=== PATIENT | female | born 1940 | race Caucasian/White ===

== ENCOUNTER 2018-06-30 19:38 | Emergency (ER) | payer OTHER ==
--- OUTSIDE RECORDS SUMMARY | 2018-06-30 19:40 | XMS REPORT | Clinical Summary ---
:1940 Author Organization [facility] Address [address] [place] [id number] Care Team Providers Name Role Phone Asked, No Pcp Primary Care Provider Unavailable Allergies No Known Allergies Current Medications No known medications Active Problems Problem Noted Date Hyponatremia 12/31/2016 Alzheimer's dementia 12/31/2016 Accelerated hypertension 12/31/2016 Fibrositis 12/31/2016 Inflammation of sacroiliac joint (HCC) 12/31/2016 Blood loss anemia 12/31/2016 Social History Tobacco Use Types Packs/Day Years Used Date Never Smoker Alcohol Use Drinks/Week oz/Week Comments No Sex Assigned at Date Recorded Not on file Last Filed Vital Signs Not on file Plan of Treatment Health Maintenance Due Date Last Done Comments BREAST CANCER SCREENING 1992 COLON CANCER SCREENING 1992 SHINGRIX VACCINE (#1) 1992 ZOSTER VACCINE 2002 PNEUMOCOCCAL POLYSACCHARIDE VACCINE AGE 65 AND OVER 2007 PNEUMOCOCCAL-13 2007 INFLUENZA VACCINE 04/24/2018 Results Not on fileafter 06/29/2017 Insurance Payer Benefit Plan / Group Subscriber ID Type Phone Address MEDICARE MEDICARE PART A AND B xxxxxxxxxx Medicare [place], [place] STATE FARM INS [employer] INS xxxxxxxxxxxxx Commercial
[2018-06-30] MEDS ORDERED: ONDANSETRON 4 MG/2 ML VIAL ONE (20:43)
[2018-06-30] MEDS ORDERED: MORPHINE 4 MG/ML SYR ONE (20:43)
[2018-06-30] MEDS ORDERED: CYCLOBENZAPRINE 10 MG TAB ONE (20:59)
--- NOTE | 2018-06-30 21:17 | EDPHYS ---
Physician Documentation [facility] Name: Yelitza Kellogg Age: 77 yrs Sex: Female : 1940 Arrival Date: 06/30/2018 Time: 19:42 Bed 18 Private MD: Alvarado Villanueva ED Physician Ward Dean HPI: 06/30 20:40 This 77 yrs old Female presents to ER via Ambulatory with complaints of Back tw4 Pain. 20:40 The patient presents with pain that is chronic, with no known mechanism of injury. The tw4 symptoms are located in the low back, left low back. Onset: The symptoms/episode began/occurred last week. The pain does not radiate. Associated signs and symptoms: The patient has no apparent associated signs or symptoms. The problem was sustained from unknown cause. Modifying factors: The patient symptoms are alleviated by nothing, the patient symptoms are aggravated by any movement. The patient has not experienced similar symptoms in the past. Historical: - Allergies: 19:56 NKDA; aj1 - Home Meds: 19:56 None [Active]; aj1 - PMHx: 19:56 Alzheimers; Chronic pain; Dementia; Hypertension; aj1 - Immunization history:: Flu vaccine is not up to date. - Social history:: Smoking status: Patient/guardian denies using tobacco. - Ebola Screening: : Patient denies travel to an Ebola-affected area in the 21 days before illness onset. ROS: 20:40 Constitutional: Negative for fever, chills, and weight loss, Eyes: Negative for injury, tw4 pain, redness, and discharge, Cardiovascular: Negative for chest pain, palpitations, and edema, Respiratory: Negative for shortness of breath, cough, wheezing, and pleuritic chest pain, Abdomen/GI: Negative for abdominal pain, nausea, vomiting, diarrhea, and constipation. 20:40 MS/Extremity: Negative for injury and deformity, Skin: Negative for injury, rash, and discoloration, Neuro: Negative for headache, weakness, numbness, tingling, and seizure. 20:40 Back: Positive for pain at rest, pain with movement, Negative for injury or acute deformity, decreased range of motion, radiated pain, acute changes. Exam: 20:40 Constitutional: This is a well developed, well nourished patient who is awake, alert, tw4 and in no acute distress. Head/Face: Normocephalic, atraumatic. Chest/axilla: Normal chest wall appearance and motion. Nontender with no deformity. No lesions are appreciated. Cardiovascular: Regular rate and rhythm with a normal S1 and S2. No gallops, murmurs, or rubs. Normal PMI, no JVD. No pulse deficits. Respiratory: Lungs have equal breath sounds bilaterally, clear to auscultation and percussion. No rales, rhonchi or wheezes noted. No increased work of breathing, no retractions or nasal flaring. Abdomen/GI: Soft, non-tender, with normal bowel sounds. No distension or tympany. No guarding or rebound. No evidence of tenderness throughout. 20:40 Back: pain, that is moderate. Vital Signs: 19:56 BP 130 / 81; Pulse 74; Resp 18; Temp 99.3(TE); Pulse Ox 97% on R/A; Weight 54.43 kg aj1 (R); Height 5 ft. 5 in. (165.10 cm) (R); Pain 10/10; 20:56 BP 125 / 76; Pulse 68; Resp 16; Pulse Ox 97% on R/A; Pain 0/10; ak1 19:56 Body Mass Index 19.97 (54.43 kg, 165.10 cm) aj1 MDM: 20:32 Patient medically screened. tw4 20:40 Data reviewed: vital signs, nurses notes. Data interpreted: court recording monitor: rhythm is tw4 normal sinus rhythm, Pulse oximetry: Interpretation: normal. 21:15 Differential diagnosis: arthritis, chronic back pain, Fatigue Joint Injury Ligament tw4 Injury vertebral fracture. Counseling: I had a detailed discussion with the patient and/or guardian regarding: the historical points, exam findings, and any diagnostic results supporting the discharge/admit diagnosis. Medication response: morphine relieved the patient's pain. Symptoms have resolved. Response to treatment: and as a result, I will discharge patient, administer pain medication. Special discussion: I discussed with the patient/guardian in detail that at this point there is no indication for admission to the hospital. It is understood, however, that if the symptoms persist or worsen the patient needs to return immediately for re-evaluation. Administered Medications: 20:48 Drug: morphine 4 mg Route: IVP; Site: right forearm; ak1 21:03 Follow up: Response: No adverse reaction; Pain is decreased ak1 20:48 Drug: Zofran 4 mg Route: IVP; Site: right forearm; ak1 21:03 Follow up: Response: Pain is decreased ak1 20:55 Drug: Flexeril 10 mg Route: PO; ak1 21:04 Follow up: Response: No adverse reaction ak1 21:57 Drug: Valium 2 mg Route: IM; Site: left deltoid; bb 22:33 Follow up: Response: No adverse reaction; Pain is decreased bb 21:57 Drug: [place] 5 mg-325 mg 1 tabs Route: PO; bb 22:34 Follow up: Response: No adverse reaction; Pain is decreased bb Disposition: 06/30/18 21:17 Discharged to Home. Impression: Low back pain. - Condition is Stable. - Discharge Instructions: Back Pain, Adult, Chronic Back Pain, Back Pain, Adult, [id number]. - Prescriptions for Tylenol- Codeine #3 300-30 mg Oral Tablet - take 2 tablet by ORAL route every 6 hours As needed; 30 tablet. Cyclobenzaprine 10 mg Oral Tablet - take 1 tablet by ORAL route every 8 hours As needed; 30 tablet. Tramadol 50 mg Oral Tablet - take 1 tablet by ORAL route every 8 hours as needed; 12 tablet. - Medication Reconciliation Form, Thank You Letter, Antibiotic Education, Prescription Opioid Use form. - Follow up: Justin Sotelo DO; When: Upon discharge from the Emergency Department; Reason: Wound Recheck, Recheck today's complaints, Re-evaluation by your physician. - Problem is new. - Symptoms have improved. Signatures: Judy Magdaleno RN RN aj1 Angelica Amado RN RN bb Melissa Hamilton RN RN ak1 Ward Dean MD MD tw4 Corrections: (The following items were deleted from the chart) 22:36 21:17 06/30/2018 21:17 Discharged to Home. Impression: Low back pain. Condition is bb Stable. Forms are Medication Reconciliation Form, Thank You Letter, Antibiotic Education, Prescription Opioid Use. Follow up: Justin Sotelo; When: Upon discharge from the Emergency Department; Reason: Wound Recheck, Recheck today's complaints, Re-evaluation by your physician. Problem is new. Symptoms have improved. tw4
--- NOTE | 2018-06-30 21:17 | ER ---
Nurse's Notes [facility] Name: Yelitza Kellogg Age: 77 yrs Sex: Female : 1940 Arrival Date: 06/30/2018 Time: 19:42 Bed 18 Private MD: Alvarado Villanueva Diagnosis: Low back pain Presentation: 06/30 19:52 Presenting complaint: states: She has been having severe back pain and leg aj1 pain. She was seen at Dr. Moses and given a shot in her hip. Then they saw Dr. Mcclellan, and he gave her another injection. That helped her pain for a few days, but then yesterday and today her back pain has been so bad that she can hardly move. Denies injury to the back. Transition of care: patient was not received from another setting of care. Onset of symptoms was June 29, 2018. Risk Assessment: Do you want to hurt yourself or someone else? Patient reports no desire to harm self or others. Initial Sepsis Screen: Does the patient meet any 2 criteria? No. Patient's initial sepsis screen is negative. Does the patient have a suspected source of infection? No. Patient's initial sepsis screen is negative. Care prior to arrival: None. 19:52 Method Of Arrival: Ambulatory aj1 19:52 Acuity: ELIAS 4 aj1 Triage Assessment: 19:56 General: Appears in no apparent distress. comfortable, Behavior is calm, cooperative, aj1 appropriate for age. Pain: Complains of pain in left low back. Neuro: Level of Consciousness is awake, alert, obeys commands. Cardiovascular: Patient's skin is warm and dry. Respiratory: Airway is patent Respiratory effort is even, unlabored, Respiratory pattern is symmetrical, agonal. Musculoskeletal: Range of motion: intact in all extremities. Historical: - Allergies: 19:56 NKDA; aj1 - Home Meds: 19:56 None [Active]; aj1 - PMHx: 19:56 Alzheimers; Chronic pain; Dementia; Hypertension; aj1 - Immunization history:: Flu vaccine is not up to date. - Social history:: Smoking status: Patient/guardian denies using tobacco. - Ebola Screening: : Patient denies travel to an Ebola-affected area in the 21 days before illness onset. Screenin:56 Abuse screen: Denies threats or abuse. Denies injuries from another. Nutritional ak1 screening: No deficits noted. Tuberculosis screening: No symptoms or risk factors identified. Fall Risk None identified. Assessment: 20:56 General: Appears uncomfortable, slender, Behavior is calm, cooperative. Pain: Complains ak1 of pain in left low back. Neuro: Level of Consciousness is awake, alert, obeys commands, Oriented to person, place, time, situation, Appropriate for age Managed Care Liaison are equal bilaterally Moves all extremities. Gait is shuffling, pt shuffling due to pain. Speech is normal, Facial symmetry appears normal. Cardiovascular: No deficits noted. Respiratory: No deficits noted. GI: No signs and/or symptoms were reported involving the gastrointestinal system. : No signs and/or symptoms were reported regarding the genitourinary system. EENT: No signs and/or symptoms were reported regarding the EENT system. Derm: No signs and/or symptoms reported regarding the dermatologic system. Musculoskeletal: Reports pain in back and left low back. 21:30 Reassessment: Patient and/or family updated on plan of care and expected duration. Pain bb level reassessed. Patient is alert, oriented x 3, equal unlabored respirations, skin warm/dry/pink. Patient states symptoms have not improved. pt states she is unable to move notified Dr Dean new orders received pt medicated see NOV. 22:35 Reassessment: Patient is alert, oriented x 3, equal unlabored respirations, skin bb warm/dry/pink. Patient states feeling better. Patient states symptoms have improved. pt and spouse verbalized understanding of and agree to plan of care discharge instructions given pt assisted to vehicle via wheelchair accompanied by spouse. Vital Signs: 19:56 BP 130 / 81; Pulse 74; Resp 18; Temp 99.3(TE); Pulse Ox 97% on R/A; Weight 54.43 kg aj1 (R); Height 5 ft. 5 in. (165.10 cm) (R); Pain 10/10; 20:56 BP 125 / 76; Pulse 68; Resp 16; Pulse Ox 97% on R/A; Pain 0/10; ak1 19:56 Body Mass Index 19.97 (54.43 kg, 165.10 cm) aj1 ED Course: 19:42 Patient arrived in ED. do 19:42 Alvarado Villanueva MD is Private Physician. do 19:55 Triage completed. aj1 19:56 Arm band placed on Patient placed in waiting room, Patient notified of wait time. aj1 20:24 Ward Dean MD is Attending Physician. tw4 20:34 Melissa Hamilton, RN is Primary Nurse. ak1 20:49 Inserted saline lock: 24 gauge in right forearm, using aseptic technique. ak1 20:56 Patient has correct armband on for positive identification. Bed in low position. Call ak1 light in reach. Side rails up X2. Adult w/ patient. Pulse ox on. NIBP on. 20:56 No provider procedures requiring assistance completed. ak1 21:16 Justin Sotelo DO is Referral Physician. tw4 22:36 IV discontinued, intact, bleeding controlled, No redness/swelling at site. Pressure bb dressing applied. Administered Medications: 20:48 Drug: morphine 4 mg Route: IVP; Site: right forearm; ak1 21:03 Follow up: Response: No adverse reaction; Pain is decreased ak1 20:48 Drug: Zofran 4 mg Route: IVP; Site: right forearm; ak1 21:03 Follow up: Response: Pain is decreased ak1 20:55 Drug: Flexeril 10 mg Route: PO; ak1 21:04 Follow up: Response: No adverse reaction ak1 21:57 Drug: Valium 2 mg Route: IM; Site: left deltoid; bb 22:33 Follow up: Response: No adverse reaction; Pain is decreased bb 21:57 Drug: [place] 5 mg-325 mg 1 tabs Route: PO; bb 22:34 Follow up: Response: No adverse reaction; Pain is decreased bb Outcome: 21:17 Discharge ordered by . tw4 22:35 Discharged to home via wheelchair, with family. bb 22:35 Condition: stable 22:35 Discharge instructions given to patient, family, Instructed on discharge instructions, follow up and referral plans. medication usage, Demonstrated understanding of instructions, follow-up care, medications, Prescriptions given X 3. 22:36 Patient left the ED. bb Signatures: Judy Magdaleno RN RN aj1 Angelica Amado RN RN bb Melissa Hamilton, RN RN ak1 Noni Yang Terrence, MD MD 4
[2018-06-30] MEDS ORDERED: HYDROCODONE/APAP 5/325 MG TAB ONE (21:46)
[2018-06-30] MEDS ORDERED: DIAZEPAM 10 MG/2 ML INJ SYRINGE ONE (21:49)
[2018-06-30 22:51] VITALS: TEMP 99.3; O2SAT 97
[2018-06-30 22:52] VITALS: BP 125/76
== END 2018-06-30 22:36 | disposition home or self-care (01) ==
LOC: ER 19:38
DX: M54.5 Low back pain (principal)
CPT/HCPCS: 96372; 96374; 96375; 99284; J2405; J3360

== ENCOUNTER 2018-07-08 01:45 | Emergency (ER) | payer OTHER ==
--- OUTSIDE RECORDS SUMMARY | 2018-07-08 01:47 | XMS REPORT | Clinical Summary ---
:1940 Author Organization [facility] Address [address] [place] [id number] Care Team Providers Name Role Phone Asked, [...] INFLUENZA VACCINE 04/24/2018 Results Not on fileafter 07/07/2017 Insurance Payer Benefit Plan / Group Subscriber ID Type Phone Address MEDICARE MEDICARE PART A AND B xxxxxxxxxx Medicare [place], [place] STATE FARM INS [employer]ARM INS xxxxxxxxxxxxx Commercial
[2018-07-08] MEDS ORDERED: HYDROCODONE/APAP 5/325 MG TAB ONE (02:24)
--- NOTE | 2018-07-08 03:03 | ER ---
Nurse's Notes [facility] Name: Yelitza Kellogg Age: 77 yrs Sex: Female : 1940 Arrival Date: 07/08/2018 Time: 01:46 Bed 13 Private MD: Diagnosis: Lumbosacral plexus disorders Presentation: 07/08 02:00 Presenting complaint: Patient states: nontraumatic intermittent left lower back pain cc3 since a couple of weeks. Transition of care: patient was not received from another setting of care. Onset of symptoms is unknown. Risk Assessment: Do you want to hurt yourself or someone else? Patient reports no desire to harm self or others. Initial Sepsis Screen: Does the patient meet any 2 criteria? No. Patient's initial sepsis screen is negative. Does the patient have a suspected source of infection? No. Patient's initial sepsis screen is negative. Care prior to arrival: None. 02:00 Method Of Arrival: Wheelchair cc3 02:00 Acuity: ELIAS 4 cc3 Triage Assessment: 02:00 General: Appears in no apparent distress. uncomfortable, Behavior is calm, cooperative, cc3 appropriate for age. Pain: Complains of pain in left lower back Quality of pain is described as aching, Pain began a couple of weeks ago. EENT: No signs and/or symptoms were reported regarding the EENT system. Neuro: Level of Consciousness is awake, alert, obeys commands, Oriented to person, place, time, situation, Appropriate for age. Cardiovascular: Denies chest pain. Respiratory: Airway is patent Respiratory effort is even, unlabored, Respiratory pattern is regular, symmetrical. GI: Abdomen is round non-distended. : No signs and/or symptoms were reported regarding the genitourinary system. Derm: No signs and/or symptoms reported regarding the dermatologic system. Musculoskeletal: Circulation, motion, and sensation intact. Range of motion: limited in lower limbs. Historical: - Allergies: 02:00 NKDA; cc3 - Home Meds: 02:00 None [Active]; cc3 - PMHx: 02:00 Alzheimers; Chronic pain; Dementia; Hypertension; cc3 - PSHx: 02:00 None; cc3 - Immunization history:: Adult Immunizations up to date. - Social history:: Smoking status: Patient/guardian denies using tobacco, never smoked. - Ebola Screening: : No symptoms or risks identified at this time. Screenin:00 Abuse screen: Denies threats or abuse. Denies injuries from another. Nutritional cc3 screening: No deficits noted. Tuberculosis screening: No symptoms or risk factors identified. Fall Risk Ambulatory Aid- None/Bed Rest/Nurse Assist (0 pts). Gait- Weak (10 pts.). Mental Status- Oriented to own ability (0 pts). Assessment: 02:00 General: see triage assessment. cc3 02:28 Reassessment: patient taken by compliance field technician for CT stone protocol procedure by [facility] wheelchair. 02:45 Reassessment: Patient came back from CT scan department. cc3 03:05 Reassessment: Patient appears in no apparent distress at this time. Patient and/or cc3 family updated on plan of care and expected duration. Pain level reassessed. Patient is alert, oriented x 3, equal unlabored respirations, skin warm/dry/pink. Dr. Mccormick discharged home the patient with prescription given. No IV cannula in situ. Patient left ER vitally stable by wheelchair with her . Vital Signs: 02:00 BP 140 / 89; Pulse 75; Resp 16 S; Temp 98.9(O); Pulse Ox 100% on R/A; Weight 54.43 kg; cc3 Height 5 ft. 4 in. (162.56 cm); Pain 10/10; 03:05 BP 133 / 87; Pulse 74; Resp 16 S; Pulse Ox 100% on R/A; Pain 0/10; cc3 02:00 Body Mass Index 20.60 (54.43 kg, 162.56 cm) 3 ED Course: 01:46 Patient arrived in ED. ds1 02:00 Patient has correct armband on for positive identification. Bed in low position. Call cc3 light in reach. Side rails up X 1. Pulse ox on. NIBP on. 02:00 Arm band placed on right wrist. cc3 02:04 Travis Mccormick MD is Attending Physician. gs 02:06 Leanne Reyna is Primary Nurse. cc3 02:08 Triage completed. cc3 02:[address] via wheelchair. kw1 02:41 CT Stone Protocol In Process Unspecified. EDMS 02:42 CT completed. Patient tolerated procedure well. Patient moved back from CT. kw1 03:05 No provider procedures requiring assistance completed. Patient did not have IV access cc3 during this emergency room visit. Administered Medications: 02:17 Drug: [place] 5 mg-325 mg 1 tabs Route: PO; cc3 03:00 Follow up: Response: No adverse reaction; Pain is decreased cc3 Outcome: 03:03 Discharge ordered by . rohan 03:05 Discharged to home via wheelchair, with family. cc3 03:05 Condition: stable 03:05 Discharge instructions given to patient, family, Instructed on discharge instructions, follow up and referral plans. medication usage, Demonstrated understanding of instructions, follow-up care, medications, Prescriptions given X 2. 03:15 Patient left the ED. cc3 Signatures: Dispatcher [employer] EDID Pedersen, Karli ds1 Travis Mccormick MD MD gs Wilhelm, Kimberly kw1 Leanne Reyna cc3 Corrections: (The following items were deleted from the chart) 04:11 02:00 BP 140 / 89; Pulse 75bpm; Resp 16bpm; Spontaneous; Pulse Ox 100% RA; Temp 98.9F cc3 Oral; 54.43 kg; Height 5 ft. 4 in.; BMI: 20.6; cc3
--- NOTE | 2018-07-08 03:03 | EDPHYS ---
Physician Documentation [facility] Name: Yelitza Kellogg Age: 77 yrs Sex: Female : 1940 Arrival Date: 07/08/2018 Time: 01:46 Bed 13 Private MD: ED Physician Travis Mccormick HPI: 07/08 02:47 This 77 yrs old Female presents to ER via Wheelchair with complaints of Back gs Pain. 02:47 The patient presents with pain that is chronic. The symptoms are located in the low gs back. Onset: The symptoms/episode began/occurred 1 month(s) ago, and became persistent. The pain does not radiate. Associated signs and symptoms: Pertinent negatives: incontinence. Severity of symptoms: At their worst the symptoms were moderate, in the emergency department the symptoms are unchanged. The patient has experienced similar episodes in the past, a few times. The patient has been recently seen by a physician: pcpryland randawa. Historical: - Allergies: 02:00 NKDA; cc3 - Home Meds: 02:00 None [Active]; cc3 - PMHx: 02:00 Alzheimers; Chronic pain; Dementia; Hypertension; cc3 - PSHx: 02:00 None; cc3 - Immunization history:: Adult Immunizations up to date. - Social history:: Smoking status: Patient/guardian denies using tobacco, never smoked. - Ebola Screening: : No symptoms or risks identified at this time. ROS: 02:47 All other systems are negative. gs Exam: 02:47 Head/Face: Normocephalic, atraumatic. Eyes: Pupils equal round and reactive to light, gs extra-ocular motions intact. Lids and lashes normal. Conjunctiva and sclera are non-icteric and not injected. Cornea within normal limits. Periorbital areas with no swelling, redness, or edema. Chest/axilla: Normal chest wall appearance and motion. Nontender with no deformity. No lesions are appreciated. Cardiovascular: Regular rate and rhythm with a normal S1 and S2. No gallops, murmurs, or rubs. Normal PMI, no JVD. No pulse deficits. Respiratory: Lungs have equal breath sounds bilaterally, clear to auscultation and percussion. No rales, rhonchi or wheezes noted. No increased work of breathing, no retractions or nasal flaring. Abdomen/GI: Soft, non-tender, with normal bowel sounds. No distension or tympany. No guarding or rebound. No evidence of tenderness throughout. Skin: Warm, dry with normal turgor. Normal color with no rashes, no lesions, and no evidence of cellulitis. MS/ Extremity: Pulses equal, no cyanosis. Neurovascular intact. Full, normal range of motion. 02:47 Constitutional: The patient appears alert, awake. 02:47 Back: pain, that is moderate. 02:47 Neuro: Motor: moves all fours, strength is 5/5 in the right arm, left arm, right leg and left leg, Sensation: is normal, no obvious gross deficits, Deep tendon reflexes are 2+ (normal) in the right patellar, right Achilles, left patellar and left Achilles. Vital Signs: 02:00 BP 140 / 89; Pulse 75; Resp 16 S; Temp 98.9(O); Pulse Ox 100% on R/A; Weight 54.43 kg; cc3 Height 5 ft. 4 in. (162.56 cm); Pain 10/10; 03:05 BP 133 / 87; Pulse 74; Resp 16 S; Pulse Ox 100% on R/A; Pain 0/10; cc3 02:00 Body Mass Index 20.60 (54.43 kg, 162.56 cm) cc3 MDM: 02:05 Patient medically screened. 02:47 Differential diagnosis: Abdominal Aortic Aneurysm Fracture Ligament Injury ruptured gs disc. Data reviewed: vital signs, nurses notes. Response to treatment: the patient's symptoms have mildly improved after treatment, and as a result, I will discharge patient. 07/08 02:14 Order name: CT Stone Protocol Administered Medications: 02:17 Drug: [place] 5 mg-325 mg 1 tabs Route: PO; cc3 03:00 Follow up: Response: No adverse reaction; Pain is decreased cc3 Disposition: 07/08/18 03:03 Discharged to Home. Impression: Lumbosacral plexus disorders. - Condition is Stable. - Discharge Instructions: Degenerative Disk Disease. - Prescriptions for Prednisone 20 mg Oral Tablet - take 1 tablet by ORAL route once daily for 5 days; 5 tablet. Tylenol- Codeine #3 300-30 mg Oral Tablet - take 1 tablet by ORAL route every 6 hours As needed; 12 tablet. - Medication Reconciliation Form, Thank You Letter, Antibiotic Education, Prescription Opioid Use form. - Follow up: Private Physician; When: 2 - 3 days; Reason: Re-evaluation by your physician. Signatures: Dispatcher [employer] Travis Ho MD MD gs Cordel, Charlene cc3 Corrections: (The following items were deleted from the chart) 03:15 03:03 07/08/2018 03:03 Discharged to Home. Impression: Lumbosacral plexus disorders. cc3 Condition is Stable. Forms are Medication Reconciliation Form, Thank You Letter, Antibiotic Education, Prescription Opioid Use. Follow up: Private Physician; When: 2 - 3 days; Reason: Re-evaluation by your physician. gs
--- NOTE | 2018-07-08 07:36 | RAD REPORT ---
EXAM DESCRIPTION: CT - Stone Protocol - 07/08/2018 6:31 am CLINICAL HISTORY: Left-sided abdominal pain, flank pain and lower back pain A preliminary report was provided at the time of the study and reviewed prior to final report. COMPARISON: CT imaging July 2013 TECHNIQUE: Axial 5 mm thick images were obtained without oral or IV contrast. The [id number] span s the entirety of the system partially obscuring uppermost abdomen and lung bases. All CT scans are performed using dose optimization technique as appropriate and may include automated exposure control or mA/KV adjustment according to patient size. FINDINGS: No hydronephrosis is present and no obstructing ureteral calculi. No suspicious renal mass es. Isodense masses and pyelonephritis are not excluded on a stone protocol CT scan. No urinary bladd er suspicious finding. Phleboliths are seen along the pelvic floor. Uterus and ovaries show no suspic ious finding for age. No adnexal mass. Imaged portions of the liver, spleen and pancreas show no suspicious findings on non-contrast imaging . Patient has normal variant Reidel lobe configuration. Gallbladder is absent. No biliary tree dilat ation. No significant adrenal finding. No suspicious bowel findings. Appendix is normal. Patient has prominent sigmoid diverticulosis but no diverticulitis findings. No hernia, mass or bulky lymphadenopathy noted. No free air, free fluid or inflammatory stranding. Disc and bony degenerative changes are present. SI joint degenerative changes are present. No jorge luis irma fracture or other pathologic process. IMPRESSION: Sigmoid diverticulosis without diverticulitis. No acute GI process identifiable. No hydronephrosis, obstructing calculus or acute finding. No acute findings seen. No abnormality to explain patient pain symptom pattern. Isodense masses and pyelonephritis are not excluded on stone protocol technique.
[2018-07-09 14:19] VITALS: BP 140/89; TEMP 98.9; O2SAT 100
== END 2018-07-08 03:15 | disposition home or self-care (01) ==
LOC: ER 01:45
DX: G54.1 Lumbosacral plexus disorders (principal); I10 Essential (primary) hypertension; G30.9 Alzheimer's disease, unspecified; F02.80 Dementia in other diseases classified elsewhere, unspecified severity, without behavioral disturbance, psychotic disturbance, mood disturbance, and anxiety
CPT/HCPCS: 74176; 76377; 99284

== ENCOUNTER 2018-11-16 15:26 | Emergency (ER) | payer OTHER ==
--- OUTSIDE RECORDS SUMMARY | 2018-11-16 15:29 | XMS REPORT | Clinical Summary ---
:[address] 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 Last Filed Vital Signs Not on file Plan of Treatment Health Maintenance Due Date Last Done Comments SHINGLES VACCINES (#1) 1992 65+ PNEUMOCOCCAL VACCINE (1 of 2 - PCV13) 2007 PNEUMOCOCCAL POLYSACCHARIDE VACCINE AGE 65 AND OVER 2007 INFLUENZA VACCINE 04/24/2018 Results Not on fileafter 11/15/2017 Insurance Payer Benefit Plan / Group Subscriber ID Type Phone Address MEDICARE MEDICARE PART A AND B xxxxxxxxxx Medicare [place], [place] STATE FARM INS STATE FARM INS xxxxxxxxxxxxx Commercial (Home) [place] [address] Advance Directives Patient has advance care planning documents on file. For more information, please contact:[phone] [place] [address]
--- NOTE | 2018-11-16 16:50 | RAD REPORT ---
EXAM DESCRIPTION: RAD - Chest Single View - 11/16/2018 4:44 pm CLINICAL HISTORY: abd pain Chest pain. COMPARISON: CHEST SINGLE VIEW dated 11/25/2014; CHEST SINGLE VIEW dated 08/13/2014; CHEST SINGLE VIEW dated 08/22/2013; CHEST PA AND LAT 2 VIEW dated 08/21/2013 FINDINGS: Portable technique limits examination quality. The lungs are grossly clear. The heart is normal in size. No displaced fractures.Aortic atheroscleros is. IMPRESSION: No acute intrathoracic process suspected.
[2018-11-16 17:10] LABS: Protime INR 1.03
[2018-11-16 17:11] LABS: ALT/SGPT 21 U/L (12-78); AST/SGOT 17 U/L (15-37); Absolute Lymphocytes (CBC) 1.4 K/uL (0.7-4.9); Absolute Monocytes 0.6 K/uL (0.1-1.3); Absolute Neutrophil 4.1 K/uL (1.8-8.0); Albumin 3.5 g/dL (3.4-5.0); Alkaline Phosphatase 95 U/L (45-117); Amylase Level 46 U/L (25-115); BUN Blood Urea Nitrogen 16 mg/dL (7-18); Basophils % 0.6 % (0-1.3); Bicarbonate 31 mmol/L (21-32); Bilirubin Direct 0.1 mg/dL (0-0.2); Bilirubin Total 0.4 mg/dL (0.2-1.0); Eosinophils % 1.4 % (0-4.4); Glucose Level 115 mg/dL (74-106); Hematocrit 39.8 % (36.0-45.0); Lipase 86 U/L (73-393); Lymphocytes % 23.2 % (15.3-44.8); MPV 7.7 fL (7.6-11.3); Magnesium 2.2 mg/dL (1.8-2.4); Monocytes % 9.9 % (3.3-12.3); NT PRO-BNP 124 pg/mL (<450); Potassium 3.5 mmol/L (3.5-5.1); Protein, Total 7.1 g/dL (6.4-8.2); Sodium Level 141 mmol/L (136-145); Troponin (Emerg Dept Use Only) < 0.02 ng/mL (0.0-0.045)
--- NOTE | 2018-11-16 18:29 | EKG ---
Test Date: 2018-11-16 Test Time: 16:17:39 [place] Clerk: MEASUREMENT RESULTS: Intervals: Rate: 65 [place]: 168 QRSD: 88 QT: 404 QTc: 420 [place]: P: 77 AZ: 168 QRS: 81 T: 69 INTERPRETIVE STATEMENTS: Normal sinus rhythm Normal ECG Compared to ECG 11/25/2014 09:18:02 Sinus bradycardia no longer present Electronically Signed On 11-16-18 18:29:27 EDGE BURNISHER by Rad Kenyon
[2018-11-16 18:31] LABS: Urine Bacteria <20 /HPF (<20); Urine Culture Reflex Order NOT NEEDED; Urine Mucus MOD /HPF (NONE SEEN); Urine RBC <5 /HPF (NONE SEEN)
--- NOTE | 2018-11-16 18:54 | EDPHYS ---
Physician Documentation [facility] Name: Yelitza Kellogg Age: 78 yrs Sex: Female : 1940 Arrival Date: 11/16/2018 Time: 15:28 Bed 27 Private MD: ED Physician Adelso De Los Santos HPI: 11/16 16:18 This 78 yrs old Female presents to ER via Ambulatory with complaints of snw Abdominal Pain. 16:18 The patient presents with abdominal pain in the epigastric area. Onset: The snw symptoms/episode began/occurred suddenly, just prior to arrival, and improved at ED, before assessment. The symptoms do not radiate. Associated signs and symptoms: none. The symptoms are described as constant, crampy, sharp. Severity of pain: At its worst the pain was incapacitating in the emergency department the pain has resolved. The patient has not experienced similar symptoms in the past. The patient has not recently seen a physician, the patient's primary care provider is Dr. Dr. Villanueva. Historical: - Allergies: 15:30 NKDA; sg - PMHx: 15:30 Alzheimers; Chronic pain; Dementia; Hypertension; sg - PSHx: 15:30 None; sg - Immunization history:: Adult Immunizations up to date. - Social history:: Smoking status: Patient/guardian denies using tobacco. - Ebola Screening: : Patient negative for fever greater than or equal to 101.5 degrees Fahrenheit, and additional compatible Ebola Virus Disease symptoms Patient denies exposure to infectious person Patient denies travel to an Ebola-affected area in the 21 days before illness onset No symptoms or risks identified at this time. ROS: 16:18 Constitutional: Negative for fever, chills, and weight loss, Eyes: Negative for injury, snw pain, redness, and discharge, ENT: Negative for injury, pain, and discharge, Neck: Negative for injury, pain, and swelling, Cardiovascular: Negative for chest pain, palpitations, and edema, Respiratory: Negative for shortness of breath, cough, wheezing, and pleuritic chest pain, Back: Negative for injury and pain, : Negative for injury, bleeding, discharge, and swelling, MS/Extremity: Negative for injury and deformity, Skin: Negative for injury, rash, and discoloration, Neuro: Negative for headache, weakness, numbness, tingling, and seizure, Psych: Negative for depression, anxiety, suicide ideation, homicidal ideation, and hallucinations. 16:18 Abdomen/GI: Positive for abdominal pain, of the epigastric area. Exam: 16:17 Constitutional: This is a well developed, well nourished patient who is awake, alert, snw and in no acute distress. Head/Face: Normocephalic, atraumatic. Eyes: Pupils equal round and reactive to light, extra-ocular motions intact. Lids and lashes normal. Conjunctiva and sclera are non-icteric and not injected. Cornea within normal limits. Periorbital areas with no swelling, redness, or edema. ENT: Nares patent. No nasal discharge, no septal abnormalities noted. Tympanic membranes are normal and external auditory canals are clear. Oropharynx with no redness, swelling, or masses, exudates, or evidence of obstruction, uvula midline. Mucous membranes moist. Neck: Trachea midline, no thyromegaly or masses palpated, and no cervical lymphadenopathy. Supple, full range of motion without nuchal rigidity, or vertebral point tenderness. No Meningismus. Chest/axilla: Normal chest wall appearance and motion. Nontender with no deformity. No lesions are appreciated. Cardiovascular: Regular rate and rhythm with a normal S1 and S2. No gallops, murmurs, or rubs. Normal PMI, no JVD. No pulse deficits. Respiratory: Lungs have equal breath sounds bilaterally, clear to auscultation and percussion. No rales, rhonchi or wheezes noted. No increased work of breathing, no retractions or nasal flaring. Back: No spinal tenderness. No costovertebral tenderness. Full range of motion. Skin: Warm, dry with normal turgor. Normal color with no rashes, no lesions, and no evidence of cellulitis. MS/ Extremity: Pulses equal, no cyanosis. Neurovascular intact. Full, normal range of motion. 16:17 Abdomen/GI: Inspection: abdomen appears normal, Bowel sounds: hyperactive, in all quadrants, Palpation: abdomen is soft and non-tender, in all quadrants. 16:17 Neuro: Orientation: is normal, Mentation: able to follow commands, hx of dementia. Vital Signs: 15:32 BP 166 / 99; Pulse 75; Resp 18; Temp 98.2; Pulse Ox 100% ; Pain 10/10; sg 16:36 BP 126 / 67; Pulse 66; Resp 14 S; Pulse Ox 98% on R/A; rv 17:00 BP 130 / 72; Pulse 66; Resp 16 S; Pulse Ox 100% on R/A; rv 17:30 BP 121 / 70; Pulse 67; Resp 16 S; Pulse Ox 99% on R/A; rv 18:00 BP 133 / 77; Pulse 67; Resp 19 S; Pulse Ox 99% on R/A; rv 19:12 BP 118 / 81; Pulse 70; Resp 16; Pulse Ox 99% on R/A; rv MDM: 16:06 Patient medically screened. casey 18:54 Data reviewed: vital signs, nurses notes. Data interpreted: Pulse oximetry: on room air snw is 99 %. Interpretation: normal. Counseling: I had a detailed discussion with the patient and/or guardian regarding: the historical points, exam findings, and any diagnostic results supporting the discharge/admit diagnosis, lab results, the need for outpatient follow up, for definitive care. Special discussion: Based on the history and exam findings, there is no indication for further emergent testing or inpatient evaluation. I discussed with the patient/guardian the need to see the primary care provider for further evaluation of the symptoms. 11/16 16:13 Order name: Basic Metabolic Panel; Complete Time: 17: snw 11/16 16:13 Order name: CBC with Diff; Complete Time: 17:w 11/16 16:13 Order name: LFT's; Complete Time: 17: snw 11/16 16:13 Order name: Magnesium; Complete Time: 17:17 snw 11/16 16:13 Order name: NT PRO-BNP; Complete Time: 17:17 snw 11/16 16:13 Order name: PT-INR; Complete Time: 17:17 snw 11/16 16:13 Order name: Troponin (emerg Dept Use Only); Complete Time: 17:17 snw 11/16 16:13 Order name: XRAY Chest (1 view); Complete Time: 16:50 snw 11/16 16:13 Order name: EKG; Complete Time: 16:13 snw 11/16 16:13 Order name: Amylase, Serum; Complete Time: 17:17 snw 11/16 16:13 Order name: Lipase; Complete Time: 17:17 snw 11/16 16:14 Order name: Urine Microscopic Only; Complete Time: 18:32 snw 11/16 16:13 Order name: Cardiac monitoring; Complete Time: 16:24 snw 11/16 16:13 Order name: EKG - Nurse/Tech; Complete Time: 16:24 snw 11/16 16:13 Order name: IV Saline Lock; Complete Time: 16:37 snw 11/16 16:13 Order name: Labs collected and sent; Complete Time: 16:37 snw 11/16 16:13 Order name: O2 Per Protocol; Complete Time: 16:37 snw 11/16 16:13 Order name: O2 Sat Monitoring; Complete Time: 16:40 snw 11/16 16:14 Order name: Urine Dipstick-Ancillary (obtain specimen); Complete Time: 18:12 snw Administered Medications: No medications were administered Disposition: 11/16/18 18:53 Discharged to Home. Impression: Unspecified abdominal pain - resolved. - Condition is Stable. - Discharge Instructions: Abdominal Pain, Adult. - Prescriptions for Pepcid 20 mg Oral Tablet - take 1 tablet by ORAL route every 12 hours for 10 days; 20 tablet. - Medication Reconciliation Form, Thank You Letter, Antibiotic Education, Prescription Opioid Use form. - Follow up: Private Physician; When: 2 - 3 days; Reason: Recheck today's complaints, Continuance of care, Re-evaluation by your physician. Follow up: Emergency Department; When: As needed; Reason: Worsening of condition. Addendum: 11/18/2018 07:48 Co-signature as Attending Physician, Adelso De Los Santos MD I agree with the assessment and c sauceda plan of care. Signatures: Dispatcher [employer] Bart Neri, RN Adelso Villalobos MD MD cha Therrien, Shelly, CLINICAL RESOURCE COORDINATOR-C CLINICAL RESOURCE COORDINATOR-Csnw Ryder Loya, RN RN rv Corrections: (The following items were deleted from the chart) 11/16 19:11 18:53 11/16/2018 18:53 Discharged to Home. Impression: Unspecified abdominal pain - rv resolved. Condition is Stable. Forms are Medication Reconciliation Form, Thank You Letter, Antibiotic Education, Prescription Opioid Use. Follow up: Private Physician; When: 2 - 3 days; Reason: Recheck today's complaints, Continuance of care, Re-evaluation by your physician. Follow up: Emergency Department; When: As needed; Reason: Worsening of condition. snw
--- NOTE | 2018-11-16 18:54 | ER ---
Nurse's Notes [facility] Name: Yelitza Kellogg Age: 78 yrs Sex: Female : 1940 Arrival Date: 11/16/2018 Time: 15:28 Bed 27 Private MD: Diagnosis: Unspecified abdominal pain-resolved Presentation: 11/16 15:31 Presenting complaint: Patient states: pt reports that the pain is in the suprapubic sg area, reports the pain as abd cramping. Transition of care: patient was not received from another setting of care. Onset of symptoms was November 16, 2018. Risk Assessment: Do you want to hurt yourself or someone else? Patient reports no desire to harm self or others. Initial Sepsis Screen: Does the patient meet any 2 criteria? No. Patient's initial sepsis screen is negative. Does the patient have a suspected source of infection? No. Patient's initial sepsis screen is negative. Care prior to arrival: None. 15:31 Method Of Arrival: Ambulatory sg 15:31 Acuity: ELIAS 3 sg Triage Assessment: 15:33 General: Appears in no apparent distress. uncomfortable, well groomed, well developed, sg well nourished, Behavior is calm, cooperative, appropriate for age. Pain: Complains of pain in abdomen and suprapubic area Quality of pain is described as aching, crampy. GI: Abdomen is round non-distended, Reports lower abdominal pain. Historical: - Allergies: 15:30 NKDA; sg - PMHx: 15:30 Alzheimers; Chronic pain; Dementia; Hypertension; sg - PSHx: 15:30 None; sg - Immunization history:: Adult Immunizations up to date. - Social history:: Smoking status: Patient/guardian denies using tobacco. - Ebola Screening: : Patient negative for fever greater than or equal to 101.5 degrees Fahrenheit, and additional compatible Ebola Virus Disease symptoms Patient denies exposure to infectious person Patient denies travel to an Ebola-affected area in the 21 days before illness onset No symptoms or risks identified at this time. Screenin:38 Abuse screen: Denies threats or abuse. Denies injuries from another. Nutritional rv screening: No deficits noted. Tuberculosis screening: No symptoms or risk factors identified. Fall Risk None identified. Assessment: 16:37 General: Appears in no apparent distress. comfortable, Behavior is calm, cooperative. rv Pain: Complains of pain in abdomen. Neuro: Level of Consciousness is awake, alert, obeys commands, Oriented to person, place, time, situation. Cardiovascular: Capillary refill < 3 seconds. Respiratory: Airway is patent. GI: Bowel sounds present X 4 quads. Abd is soft and non tender X 4 quads. : No signs and/or symptoms were reported regarding the genitourinary system. EENT: No signs and/or symptoms were reported regarding the EENT system. Derm: Skin is intact. Musculoskeletal: No signs and/or symptoms reported regarding the musculoskeletal system. 18:13 Reassessment: Patient appears in no apparent distress at this time. Patient and/or rv family updated on plan of care and expected duration. Pain level reassessed. Patient is alert, oriented x 3, equal unlabored respirations, skin warm/dry/pink. Vital Signs: 15:32 BP 166 / 99; Pulse 75; Resp 18; Temp 98.2; Pulse Ox 100% ; Pain 10/10; sg 16:36 BP 126 / 67; Pulse 66; Resp 14 S; Pulse Ox 98% on R/A; rv 17:00 BP 130 / 72; Pulse 66; Resp 16 S; Pulse Ox 100% on R/A; rv 17:30 BP 121 / 70; Pulse 67; Resp 16 S; Pulse Ox 99% on R/A; rv 18:00 BP 133 / 77; Pulse 67; Resp 19 S; Pulse Ox 99% on R/A; rv 19:12 BP 118 / 81; Pulse 70; Resp 16; Pulse Ox 99% on R/A; rv ED Course: 15:28 Patient arrived in ED. mr 15:31 Triage completed. sg 15:31 Arm band placed on. sg 16:04 Patricia Gaffney FNP-C [facility]. snw 16:04 Adelso De Los Santos MD is Attending Physician. snw 16:30 Inserted saline lock: 20 gauge in left antecubital area, using aseptic technique. Blood rv collected. 16:36 Amylase, Serum Sent. rv 16:36 Lipase Sent. rv 16:36 Basic Metabolic Panel Sent. rv 16:37 CBC with Diff Sent. rv 16:37 LFT's Sent. rv 16:37 Magnesium Sent. rv 16:37 NT PRO-BNP Sent. rv 16:37 XRAY Chest (1 view) Sent. rv 16:38 Patient has correct armband on for positive identification. Placed in gown. Bed in low rv position. Call light in reach. Side rails up X2. Adult w/ patient. secured entrance monitor on. Pulse ox on. NIBP on. 16:44 XRAY Chest (1 view) In Process Unspecified. EDMS 18:12 Urine Microscopic Only Sent. rv 18:12 Urine Culture Sent. rv 19:11 No provider procedures requiring assistance completed. IV discontinued, bleeding rv controlled, No redness/swelling at site. Pressure dressing applied. Administered Medications: No medications were administered Outcome: 18:53 Discharge ordered by MD. snw 19:11 Discharged to home ambulatory. rv 19:11 Condition: good 19:11 Discharge instructions given to patient, family, Instructed on discharge instructions, follow up and referral plans. medication usage, Demonstrated understanding of instructions, follow-up care, medications, Prescriptions given X 1. 19:11 Patient left the ED. rv Signatures: Dispatcher [employer] EDMS Bart Gonzalez, RN RN Patricia Pace, PRODUCTION PAINTER-C PRODUCTION PAINTER-Jaxonw Fay Nava Ronaldo RN RN rv
[2018-11-16 19:18] VITALS: TEMP 98.2
[2018-11-16 19:23] VITALS: O2SAT 99
[2018-11-16 19:24] VITALS: BP 133/77
== END 2018-11-16 19:11 | disposition home or self-care (01) ==
LOC: ER 15:26
DX: R10.30 Lower abdominal pain, unspecified (principal); G30.9 Alzheimer's disease, unspecified; F02.80 Dementia in other diseases classified elsewhere, unspecified severity, without behavioral disturbance, psychotic disturbance, mood disturbance, and anxiety; I10 Essential (primary) hypertension
CPT/HCPCS: 36415; 71045; 80048; 80076; 81015; 82150; 83690; 83735; 83880; 84484; 85025; 85610; 93005; 99284

== ENCOUNTER 2019-02-19 06:29 | Day surgery (SDC) | payer OTHER ==
--- OUTSIDE RECORDS SUMMARY | 2019-02-19 06:31 | XMS REPORT | Clinical Summary ---
:1940 Author Organization [facility] Address [address] [place] [address] Care Team Providers Name Role Phone Asked, [...] AGE 65 AND OVER 2007 INFLUENZA VACCINE 04/24/2019 Results Not on fileafter 02/18/2018 Insurance Payer Benefit Plan / Subscriber ID Effective Phone Address Type Group Dates MEDICARE MEDICARE PART xxxxxxxxxx 2007-Pres [place], [place] Medicare A AND B ent STATE FARM INS STATE FARM INS xxxxxxxxxxxxx 2016-Prese Commercial nt Advance Directives Patient has advance care planning documents on file. For more information, please contact:[phone] [place] [address]
[2019-02-19] MEDS ORDERED: Ringers Lactate 1,000 ML IV ONE (06:57)
[2019-02-19] MEDS ORDERED: ONDANSETRON 4 MG/2 ML VIAL ONE (07:28)
[2019-02-19] MEDS ORDERED: FENTANYL CITR 100 MCG/2 ML ONE (07:28)
[2019-02-19] MEDS ORDERED: PROPOFOL 200 MG/20 ML VIAL IV ONE (07:28)
[2019-02-19] MEDS ORDERED: LIDOCAINE 2% MPF 5 ML VIAL ONE (07:28)
[2019-02-19] MEDS ORDERED: SILVER NITRATE 1 APPL TOP ONE ×2 (07:34→07:35)
[2019-02-19] MEDS ORDERED: NA CHLORIDE 0.9% 1,000 ML ONE (07:34)
[2019-02-19] MEDS ORDERED: LIDOCAINE 1% W/EPI 1:100,000 MDV 50 ML VIAL ONE (07:35)
[2019-02-19 08:21] VITALS: BP 107/54; TEMP 97.6; O2SAT 100
--- NOTE | 2019-02-20 11:40 | OP ---
Date of Procedure: 02/19/2019 Surgeon: Shandra Jaimes MD Preoperative Diagnoses: Incomplete uterovaginal prolapse, pelvic pain. Postoperative Diagnoses: Incomplete uterovaginal prolapse, pelvic pain, endometrial polyp. Procedures Performed: Hysteroscopy, dilation and curettage with removal of polyp. Anesthesia: MAC plus paracervical block. Specimens: Endometrial curettings and polyp. Complications: None. Drains: None. Condition: Stable. Indications: The patient is a 78-year-old female with intermittent episodes of pelvic pain. The wor kup for any gastrointestinal, gynecological masses, or pathology has been negative thus far. The pat ient with severe dementia. Findings: Endometrial polyp in the left cornual posterior wall at the left coronal end of the uterus . Endometrium unremarkable mostly. Polyp removed completely. Curettings performed adequately. Uterine prolapse with point C at 0, AA at -1, BA at -1, and C is 0, 4 cm genital hiatus, but perineal body moderate, vaginal length 8 cm, posterior wall -2, -2, and -1. The patient is a 78-year-old with dementia and recurrent pelvic pain. Her workup has been negative h ere. No GI or gynecological pathology has been found. We have fitted her with a pessary, and she sauceda s been using a pessary without any problems for treatment of her prolapse. Investigation was done to check the lining of the uterus, and there was thickened endometrium, which needed evaluation, and so she was consented for hysteroscopy, D and C in the hospital due to her difficulty in tolerance for a n office procedure. There is possibility that the family would prefer to have a surgical repair of h er prolapse, so that she did have to come back for recurrent pessary maintenance. After informed consent was verified, she was taken back to OR, placed in a supine fashion on the oper ating table. After MAC was given, she was placed in a dorsal lithotomy position. Pelvic exam perfor med. Uterus small. Pelvic findings as above, the POP-Q. Then cervix was injected with 1% lidocaine mixed with 1:100,000 epinephrine, 5 cc at the 12 o'clock position, and 4 and 8 o'clock position 5 cc each. Prep x3 with Betadine was done. Anterior lip grasped with an Allis clamp, did not have to pl golden a speculum to perform her procedure after removing the pessary, all this was performed. Diagnost ic hysteroscopy was performed with a 30-degree lens, Slimline hysteroscope, normal saline for distent ion through the cervical canal into the uterine cavity, a small polyp at the left cornua, end of the posterior wall of the uterus. This was scraped off at the base with the tip of the scope. Then, the scope was removed. Mani forceps was used to grasp the polyp and remove. Then endometrial curett ings were performed with a #2 curette. After adequate sampling was performed, the patient was cleane d up after all instruments were removed. Pessary was cleaned and replaced. She was recovered from a nesthesia in the OR and taken to PACU in stable condition. EBL was minimal. The patient will follow up with me in 1 week. DANNY/LASHONDA Voice ID: [id number] Report ID: [id number]
== END 2019-02-19 09:00 | disposition home or self-care (01) ==
LOC: OR 06:29
PROVIDERS: ATTEND Obstetrics & Gynecology
PROC: 0UJD8ZZ Inspection of Uterus and Cervix, Via Natural or Artificial Opening Endoscopic (ICD-10-PCS; 2019-02-19)
PROC: 0UDB7ZX Extraction of Endometrium, Via Natural or Artificial Opening, Diagnostic (ICD-10-PCS; principal; 2019-02-19 07:30)
DX: N81.2 Incomplete uterovaginal prolapse (principal); N84.0 Polyp of corpus uteri; I10 Essential (primary) hypertension; G30.9 Alzheimer's disease, unspecified; F02.80 Dementia in other diseases classified elsewhere, unspecified severity, without behavioral disturbance, psychotic disturbance, mood disturbance, and anxiety; G62.9 Polyneuropathy, unspecified; Z79.82 Long term (current) use of aspirin
CPT/HCPCS: 88305; 58558; J2704; J3010; J7030; J2405

== ENCOUNTER 2019-05-15 06:33 | Inpatient (IN) | payer OTHER ==
[2019-05-12 13:47] LABS: Absolute Lymphocytes (CBC) 2.2 K/uL (0.7-4.9); Basophils % 0.7 % (0-1.3); Hematocrit 39.3 % (36.0-45.0); Lymphocytes % 36.1 % (15.3-44.8); MPV 7.9 fL (7.6-11.3); RBC Red Blood Cell Count 4.41 M/uL (3.86-4.86)
[2019-05-12 14:02] LABS: Potassium 4.2 mmol/L (3.5-5.1)
[2019-05-13 14:54] LABS: Urine Appearance CLOUDY; Urine Bilirubin NEGATIVE (NEG); Urine Blood NEGATIVE (NEG); Urine Color YELLOW; Urine Glucose NEGATIVE (NEG); Urine Protein NEGATIVE (NEG); Urine Specific Gravity >=1.030 (1.005-1.030); Urine Urobilinogen 0.2 mg/dL (0.2-1.0); Urine pH 5.5 (5.0-7.0)
[2019-05-13 15:11] LABS: Urine Microscopic Reflex ORDER UMIC
[2019-05-13 15:52] LABS: Urine Bacteria 20-50 /HPF (<20); Urine Culture Reflex Order REFLEXED; Urine RBC <5 /HPF (NONE SEEN)
--- OUTSIDE RECORDS SUMMARY | 2019-05-15 06:36 | XMS REPORT | Clinical Summary ---
:1940 Author Organization [facility] Address [address] [place] [id number] Care Team Providers Name Role Phone Asked, [...] Health Maintenance Due Date Last Done Comments COLONOSCOPY SCREENING 1992 SHINGLES VACCINES (#1) 1992 65+ PNEUMOCOCCAL VACCINE (1 of 2 - PCV13) 2007 INFLUENZA VACCINE 04/24/2019 Results Not on fileafter 05/14/2018 Insurance Payer Benefit Plan / Subscriber ID Effective Phone Address Type Group Dates MEDICARE MEDICARE PART xxxxxxxxxx 2007-Pres [place], [place] Medicare A AND B ent STATE FARM INS STATE FARM INS xxxxxxxxxxxxx 2016-Prese Commercial nt Advance Directives For more information, please contact: [phone] Type Date Recorded Patient Recreation Facilities Supervisor Explanation Advance Directives, Living Will and Medical Power of Marketing Information Analyst
[2019-05-15] MEDS ORDERED: CEFAZOLIN/SWI 2gm 2 GM/20 ML SYR ONE (06:53)
[2019-05-15] MEDS ORDERED: Ringers Lactate 1,000 ML IV ONE ×2 (06:53→10:59)
[2019-05-15] MEDS ORDERED: PROPOFOL 200 MG/20 ML VIAL IV ONE (07:09)
[2019-05-15] MEDS ORDERED: ROCURONIUM 50 MG/5 ML VIAL IV ONE ×2 (07:09→09:02)
[2019-05-15] MEDS ORDERED: GLYCOPYRROLATE 0.2 MG/ML SYR ONE (07:10)
[2019-05-15] MEDS ORDERED: FENTANYL CITR 250 MCG/5 ML ONE (07:11)
[2019-05-15] MEDS ORDERED: LIDOCAINE 2% MPF 5 ML VIAL ONE (07:11)
[2019-05-15] MEDS ORDERED: NEOSTIGMINE 1 MG/ML -10 ML VIAL ONE (07:13)
[2019-05-15] MEDS ORDERED: ONDANSETRON 4 MG/2 ML VIAL ONE (07:13)
[2019-05-15] MEDS ORDERED: NA CHLORIDE 0.9% 100 ML IV ONE (07:17)
[2019-05-15] MEDS ORDERED: CEFAZOLIN/SWI 1gm 1 GM/10 ML SYR ONE (07:18)
[2019-05-15] MEDS ORDERED: PROPOFOL 1,000 MG/100 ML VIAL IV ONE ×2 (07:33)
[2019-05-15] MEDS: VASOPRESSIN 20 UNIT/ML VIAL ONE ×2 (08:12→08:15)
[2019-05-15] MEDS ORDERED: EPHEDRINE SULF 50 MG/ML VIAL ONE (08:18)
[2019-05-15] MEDS: MEPERIDINE HCL 25 MG/0.5 ML ONE ×3 (11:55→12:00)
[2019-05-15] MEDS: ACETAMINOPHEN 500 MG TAB PO PRN ×2 (13:40→20:15)
[2019-05-15] MEDS: Ringers Lactate 1,000 ML IV SCH (16:20)
[2019-05-15] MEDS: MORPHINE 4 MG/ML SYR IV PRN ×2 (18:29→23:42)
[2019-05-15] MEDS ORDERED: AMLODIPINE 5 MG TAB PO ONE (21:01)
[2019-05-16] MEDS: ACETAMINOPHEN 500 MG TAB PO PRN ×3 (02:54→17:13)
[2019-05-16] MEDS: Ringers Lactate 1,000 ML IV SCH ×3 (04:00→20:00)
[2019-05-16] MEDS: MORPHINE 4 MG/ML SYR IV PRN ×2 (06:07→12:05)
--- NOTE | 2019-05-16 06:32 | OP ---
Date of Procedure: 05/15/2019 Surgeon: Shandra Jaimes MD Assembly Line Worker: Emily Courtney. Preoperative Diagnoses: Stage II to III anterior wall prolapse, incomplete uterovaginal prolapse wit h level 1 defect as the leading defect, posterior prolapse, and occult stress urinary incontinence. Postoperative Diagnoses: Stage II anterior wall defect, stage II uterine prolapse, stage I posterior prolapse with posterior enterocele, occult stress urinary incontinence. Procedures Performed: 1.Anterior repair with suture, mid urethral sling (TVT-O), and cystoscopy. 2.Posterior repair. 3.Posterior enterocele repair. 4.Right sacrospinous ligament fixation colpopexy. 5.Perineorrhaphy. Anesthesia: General endotracheal. Specimens: None. Complications: None. Drains: Pruitt catheter and vaginal packing. Findings: POP-Q is as follows: 0, +1, +2; 5, moderate, 7; -2, -2, -2. Indications: Patient is a 78-year-old lady, known to our practice for about 3 years, progressively i ncreasing vaginal bulge symptoms and difficulty with overactive bladder. In the past year, she was n oted to have significant prolapse. A pessary was fitted this year; however, the patient is not handl ing this very well. Discussed about all the options and alternatives. Uterine cavity was evaluated. No evidence of any hyperplasia or cancer. Discussed about the options of laparoscopic hysterectomy with laparoscopic sacrocolpopexy and repair of the bottom versus vaginal repair of anterior and post erior woodson and apical repair with sacrospinous colpopexy and sling. Urodynamic testing was performe d and she was found to have a leak, although patient is symptomatic, using the pessary at this time. Description Of Procedure: After getting the consent from the patient as well as her , who is the consistent accompanying person and caregiver, patient has significant amount of dementia. The me truman loss was noted during her multiple visits over the years. After many visits where we talked abo ut possible options narrowing down and the details of the procedures, risks and benefits, and efficac y, she was consented for an anterior-posterior repair with sacrospinous fixation. She was consented and brought to the hospital after reconfirming the consent this morning with the patient and her husb and at that time. All the complications including bleeding; infection; bowel, bladder, and ureteric injury; dyspareunia; retention of urine with need for catheterization, short term and terminal operator; and need for surgical revision of the sling and possible fistula repair, although very rare, were all dis cussed with the patient. Patient understood and understood all the complications and the alt ernatives of the surgery and she was consented and taken back to OR. 2 g of Ancef was given. She wa s placed in a supine fashion on the operating table. General anesthesia given. She was placed in do rsal lithotomy position using Rock stirrups. SCDs were started. Arms were laid by the side. Pelvi c exam was performed, POP-Q as above. Vulva, vagina, perineum, and lower abdomen were prepped and dr aped in a sterile fashion. Pruitt placed to drain the bladder and retracted superiorly. Initial proc edure was anterior repair. After identifying the neck of the bladder, Allis clamp was placed right i nferior to it and all the way to the reflection of the bladder above the level of the cervix. Inject ed with dilute vasopressin 10 cc in the midline. Midline repair was done by incising with a 15 blade , raising the flaps of the vaginal epithelium, sub-epithelium, and endopelvic fascia. Bladder was di ssected away from here all the way to the level of the bladder reflection over the cervix. This was all reduced and from side to side sutured with 2-0 Vicryl and 2-0 PDS. Five sutures were placed, 3 w ith Vicryl, 2 with PDS. Once these were tied together from side to side, then the vaginal epithelium was slightly trimmed, maybe about 5 mm on each side, and then brought together in a continuous runni ng horizontal mattress fashion with the help of 2 Vicryl and then interrupted horizontal mattress 2-0 PDS x2. All these were to hold the vaginal epithelial fascial layer all together for midline repair . Mid urethral sling was then performed. Patient's legs were placed in a high lithotomy . M id urethral area grasped with 2 Allis clamps, injected with 10% dilute vasopressin 20 units in 50 cc dilution. Exit points were made 2 cm lateral, 1 cm superior to the horizontal line, dropped at the l evel of the external meatus outside the groin line. Then, once the exit points were marked, the inci irma was made with a 15 blade. A centimeter and half incision was made in the midurethral area. Dis section was carried with the tip of the Metzenbaum scissors at a 45-degree angle to the horizontal an d vertical planes pointing to the ipsilateral shoulder, hugging the inferior pubic ramus, entering th e obturator space. Once the obturator membrane was perforated, tract was opened up on both sides. T hen, the wing guide was placed. Marcellus was passed without any problems. There was slight difficulty in dissection of the left side, but once the membrane was perforated, the angle was completely within normal limits. The sling was passed, tensioned in place, and plastic dilator was cut, Metgonzalobaum sc issors below the urethra underneath the sling. Then, the plastic sheaths were pulled out after appro priately tensioning the sling and the sling was trimmed flush with the skin on both sides and Dermabo nd placed. Irrigation with Ancef solution and closure was done with the help of 3-0 Vicryl in a cont inuous running locked fashion. Pruitt was removed. Cystoscopy was performed. No evidence of any perforation of the bladder or forei gn body. Catheter was replaced after draining the bladder. Two Allis clamps were placed on either side of the vestibule, injected vestibule and perineum injecte d with 1% lidocaine 10 cc, then posterior wall all the way to the apex injected with another 15 cc. Triangular skin incision made on the perineum. Incision made in the midline going towards the vestib ule and the posterior vaginal wall. There were 2 scars, most likely from her deliveries and episioto my repair as well as laceration repairs. Once I went past the distal 4 cm of the vaginal wall, then the scar was very minimal, able to dissect the enterocele out. There was a horizontal or a diagonal defect from the top of the rectovaginal septum to the apex. This was identified. The enterocele was coming through here, so enterocele was reduced and this was repaired with the help of a continuous r unning 2-0 PDS. Then after identifying the cervix until the remnants of the uterosacral ligaments, r ight sacrospinous ligament was cleaned out. Ischial spine was palpated. Window was created here. T hen, once the space was entered, the sacrospinous ligament was nicely cleaned up using the Capio juliette ce and 0 Prolene. First stitch placed in the center of the ligament, second lateral to it about a ce ntimeter and half lateral to the ischial spine. Both of these were good bites, especially the second one, which was the lateral one. Then, went through the uterosacral and went through the tissue of the cervix, so this could be held in place and then these were clamped. Vaginal epithelium was raised after making the dissection all the way up and after closing the enterocele and the recto vaginal septum appeared to be very stretched out. Therefore, plan was to imbricate this. So, 2-0 PD S was taken and continuous running suture from side to side and going down was done and then the site -specific defect in the lateral aspect in the lower 1/3 was also closed. Here, the suture was ended. Then, started the suture on the vaginal epithelium after trimming the edges by like half a centimet er. Then, closure was started from the top with PDS and after coming down half the way, then the sac rospinous stitches were tied, first the medial one, then the lateral one. There was excellent positi on of the cervix to the sacrospinous ligament and window there created was appropriate for the size o f the cervix to be accommodated easily without tension. The rest of the vaginal closure was done in a continuous running fashion. Vestibule was repaired for bringing the deep transverse perinei togeth er, recreating the perineal body and the rectovaginal septum attached to this. Three interrupted PDS sutures were placed to bring the perineal body together. Then, the vaginal epithelium and the perin eal skin was closed with the help of 3-0 Vicryl. Rectal exam was performed. No evidence of any trau ma or foreign body. Cystoscopy was performed and there were strong jets of urine from both ureteric orifices, right and the left. No evidence of any ureteric obstruction. Pruitt was replaced after darline ining the bladder. Vaginal packing was placed. She was recovered from anesthesia and taken to PACU in stable condition. Estimated Blood Loss: Minimal. DANNY/LASHONDA Voice ID: [id number] Report ID: [id number]
[2019-05-16 06:54] LABS: Absolute Lymphocytes (CBC) 1.1 K/uL (0.7-4.9); Basophils % 0.3 % (0-1.3); Lymphocytes % 12.7 % (15.3-44.8); MPV 7.8 fL (7.6-11.3); RBC Red Blood Cell Count 4.26 M/uL (3.86-4.86)
[2019-05-16] MEDS: ONDANSETRON 4 MG/2 ML VIAL IV PRN ×2 (07:40→13:50)
[2019-05-16] MEDS: AMLODIPINE 5 MG TAB PO SCH (08:40)
--- NOTE | 2019-05-16 09:17 | CON ---
Identification: A 78-year-old woman. Reason For Consult: Elevated blood pressure. History Of Present Illness: Ms. Kellogg is 78, she was admitted to the hospital electively for a blad neha and pelvic floor surgery done yesterday morning, everything went well. Late in the evening yeste rday her blood pressure was noted to be elevated. She was having some typical postop pain. Blood pr essure 170/80 was noted. The patient was given Norvasc. Her blood pressure came down, it is back up a little bit today. The patient has severe underlying dementia. Medications: Her home medications have been aspirin and progesterone cream. She reports a drug into lerance to [facility]. Social History: She uses no tobacco, alcohol, or illegal drugs. Physical Examination: Measurements: 5 feet 6 inches, 130 pounds. General: Alert, oriented, pleasant, not in distress. Lungs: Clear. Cardiac: Within normal limits. Extremities: Normal pulses. No cyanosis, clubbing, or edema. Vital Signs: Most recent blood pressure 165/87, heart rate 70. I recommend we give amlodipine 5 mg daily at least until she is discharged and Dr. Villanueva can take ov er with decisions about blood pressure medications when she is not in pain and back to her normal routine, she may well need to dis continue the amlodipine. POWER/LASHONDA Voice ID: [id number] Report ID: [id number]
[2019-05-16] MEDS ORDERED: NITROFURAN MACRO 100 MG CAP PO ONE (09:37)
[2019-05-16] MEDS: NITROFURAN MACRO 100 MG CAP PO SCH (09:40)
[2019-05-16 15:31] LABS: Absolute Lymphocytes (CBC) 0.6 K/uL (0.7-4.9); Basophils % 0.1 % (0-1.3); Hematocrit 38.1 % (36.0-45.0); Lymphocytes % 5.5 % (15.3-44.8); MPV 7.3 fL (7.6-11.3); RBC Red Blood Cell Count 4.43 M/uL (3.86-4.86)
[2019-05-16 15:50] LABS: ALT/SGPT 24 U/L (12-78); AST/SGOT 35 U/L (15-37); Albumin 3.6 g/dL (3.4-5.0); Alkaline Phosphatase 107 U/L (45-117); BUN Blood Urea Nitrogen 5 mg/dL (7-18); Bicarbonate 21 mmol/L (21-32); Bilirubin Total 1.3 mg/dL (0.2-1.0); Glucose Level 161 mg/dL (74-106); Potassium 3.2 mmol/L (3.5-5.1); Protein, Total 7.6 g/dL (6.4-8.2); Sodium Level 120 mmol/L (136-145)
[2019-05-16] MEDS ORDERED: D5.45NS W/KCL 20MEQ 20 MEQ/1,000 ML BAG IV SCH (16:00)
--- NOTE | 2019-05-16 16:01 | RAD REPORT ---
EXAM DESCRIPTION: RAD - Chest Single View - 05/16/2019 3:36 pm CLINICAL HISTORY: Shortness of breath COMPARISON: October 2018 TECHNIQUE: AP portable chest image was obtained 1532 hours . FINDINGS: No focal lung parenchymal process. Lung markings are prominent but not clearly different f rom the prior study. Shallow inspiration accentuates the lung markings compared to the October study . Trachea is midline. Heart and vasculature are normal. No measurable pleural effusion and no pneumot horax. No acute bony abnormality seen. No acute aortic findings suspected. IMPRESSION: No acute cardiopulmonary process. No significant change from October.
[2019-05-16] MEDS ORDERED: WATER FOR INJ,STERILE 10 ML IM PRN (16:12)
[2019-05-16] MEDS ORDERED: ZIPRASIDONE MESYLA 20 MG/VIAL IM PRN (16:12)
[2019-05-16 17:36] LABS: Blood Morphology Comment NOT SEEN (NOT SEEN); Platelet Estimate ADEQ
[2019-05-16] MEDS: NA CHLORIDE 0.9% 1,000 ML IV SCH (17:45)
--- NOTE | 2019-05-16 17:45 | RAD REPORT ---
EXAM DESCRIPTION: CT - Head Brain Wo Cont - 05/16/2019 5:14 pm CLINICAL HISTORY: Transient alteration of awareness COMPARISON: July 2014 TECHNIQUE: Axial 5 mm thick images of the head were obtained without IV contrast. All CT scans are performed using dose optimization technique as appropriate and may include automated exposure control or mA/KV adjustment according to patient size. FINDINGS: No intracranial hemorrhage, mass, edema or shift of mid-line structures. No acute cortical based infarction. No cortical edema or sulcal effacement. Atrophy and chronic ischemic changes are p resent with ventricles in proportion. Intracranial findings are similar to comparison. Mastoid air cells and visualized portions of the paranasal sinuses are clear. No acute bony findings. IMPRESSION: Atrophy and chronic ischemic changes are present with no acute intracranial finding. No significant change from 2013.
[2019-05-16] MEDS ORDERED: KCL 20 MEQ/100 mL IVPB 20 MEQ/100 ML BAG IV SCH (19:00)
[2019-05-16] MEDS ORDERED: NS 0.9% VIAL 10 ML ONE (19:47)
[2019-05-16] MEDS: ENSURE HIGH PROTEIN 237 ML CAN PO SCH (20:24)
--- NOTE | 2019-05-16 21:41 | CON ---
Date of Consultation: 05/16/2019 Reason For Consultation: Altered mental status. Code Status: Full. History Of Present Illness: The patient is a 78-year-old female with no significant past medical history other than Alzheimer dementia, who had a procedure by Dr. Jaimes for cystocele prolapse. The patient had surgery yesterday and had elevated blood pressure postop, was seen by Cardiology and now subsequently has been having episodes of confusion, altered mental status, as well as agitation. Patient's morphine was discontinued. According to the daughter, patient has had this episode previously in 2018 with a surgery done on her ankle. Patient's symptoms are constant, moderate, progressively worsening. Therefore, hospitalist service was consulted for further management. Past Medical History: Alzheimer dementia, moderate to severe. Surgical History: The patient has had ankle surgery as well as now recent bladder prolapse repair. Allergies: DONEPEZIL. Medications: List reviewed. Social History: Patient does not smoke or drink. Lives at home with her . No illicit drug use. The patient does require assistance with her activities of daily living. Family History: Alzheimer dementia was prevalent in the mom as well as 2 of her other sisters. Review of Systems: Limited due to patient's condition; however, 10-point system is negative except as per HPI. Physical Examination: Vital Signs: Temperature 98.8, heart rate 94, blood pressure 184/97, respirations 18, O2 99% on 2 L via nasal cannula. General: Asleep but arousable, elderly female, confused, somewhat agitated, frail, cachectic. HEENT: Normocephalic, atraumatic, PERRLA, EOMI, moist mucous membranes. Oropharynx is clear. Normal dentition. Neck: Supple. No JVD. CV: S1, S2. Regular rate and rhythm. Peripheral pulses present. Respiratory: Clear to auscultation bilaterally. No wheezing or stridor. No use of accessory muscles. Gastrointestinal: Abdomen is soft, nontender, nondistended. Positive bowel sounds. No guarding or rigidity. Extremities: No clubbing, cyanosis, or edema. No calf tenderness. Neuro: Cranial nerves 2 through 12 intact grossly. No focal neurological deficit. Patient moves all 4 extremities. Speech is normal. Skin: No rashes. Normal skin turgor. Laboratory Data: Sodium 120, potassium 3.2, chloride 86, CO2 of 21, BUN 5, creatinine 0.55, glucose 161, calcium 8.4. Total bilirubin 1.3, AST 35, ALT 24. WBC 10.9, H and H of 13 and 38.1, platelets 267, neutrophils 90%. Urine culture showing mixed rosaline. Chest x-ray, personally reviewed, shows no acute cardiopulmonary process, no significant change from October. Assessment And Plan: A 78-year-old female with: 1. Acute metabolic encephalopathy, likely related to hyponatremia and side effect of anesthesia. We will place on p.r.n. medications for agitation. We will place on fall risk precautions and bed alarm. Family encouraged to stay with her at night to refamiliarize patient and to redirect her. 2. Acute delirium, secondary to above. 3. Hyponatremia, euvolemic. We will adjust IV fluids and continue to monitor sodium level. 4. Hypokalemia. We will replace and monitor. 5. Elevated blood pressure without diagnosis of hypertension. The patient has been started on amlodipine by Dr. Kenyon. We will continue to monitor and add p.r.n. medications for systolic greater than 160. 6. Hyperbilirubinemia, likely acute phase reactant. 7. Alzheimer dementia, severe and now with behavioral disturbance, early onset. 8. Status post uterovaginal prolapse repair and bladder wall repair as per Dr. Jaimes. We will follow along with you. Thank you for the opportunity for allowing us to take care of your patient. /LASHONDA Voice ID: [id number] Report ID: [id number] AFSANEH
[2019-05-16] MEDS ORDERED: HYDRALAZINE HCL 20 MG/ML VIAL IV PRN (22:24)
[2019-05-17] MEDS ORDERED: HALOPERIDOL LACT 5 MG/ML INJ IV ONE (01:00)
[2019-05-17] MEDS ORDERED: MORPHINE 2 MG/ML SYR IV ONE ×2 (01:01→11:15)
[2019-05-17] MEDS ORDERED: MORPHINE 2 MG/ML SYR ONE (01:23)
[2019-05-17] MEDS ORDERED: HALOPERIDOL LACT 5 MG/ML INJ ONE (01:23)
[2019-05-17] MEDS: ONDANSETRON 4 MG/2 ML VIAL IV PRN ×3 (01:30→17:01)
[2019-05-17] MEDS: NA CHLORIDE 0.9% 1,000 ML IV SCH (02:41)
[2019-05-17] MEDS: Ringers Lactate 1,000 ML IV SCH (04:00)
[2019-05-17 06:37] LABS: ALT/SGPT 21 U/L (12-78); AST/SGOT 30 U/L (15-37); Albumin 3.4 g/dL (3.4-5.0); Alkaline Phosphatase 97 U/L (45-117); BUN Blood Urea Nitrogen 8 mg/dL (7-18); Bicarbonate 19 mmol/L (21-32); Bilirubin Total 0.9 mg/dL (0.2-1.0); Glucose Level 122 mg/dL (74-106); Potassium 3.7 mmol/L (3.5-5.1); Protein, Total 7.1 g/dL (6.4-8.2)
[2019-05-17 06:42] LABS: Sodium Level 118 mmol/L (136-145)
[2019-05-17] MEDS ORDERED: FUROSEMIDE 40 MG/4 ML VIAL IV ONE (07:12)
[2019-05-17] MEDS: AMLODIPINE 5 MG TAB PO SCH (08:59)
[2019-05-17] MEDS: NITROFURAN MACRO 100 MG CAP PO SCH (09:00)
[2019-05-17] MEDS ORDERED: NA CHLORIDE 3% 250 ML IV SCH (09:00)
[2019-05-17] MEDS: ENSURE HIGH PROTEIN 237 ML CAN PO SCH ×2 (09:01→21:00)
--- NOTE | 2019-05-17 09:21 | PN ---
Ms. Kellogg developed severe mental status decline and it seems that her Alzheimer disease is much wor se, perhaps from hyponatremia perhaps from medications. She has gotten also malnutrition, which also contributed to the hyponatremia. She is now in the ICU. I think 1 of the main things that needs to happen is some kind of nutrition being given to her since she has been throwing up a lot, perhaps to grant parenteral nutrition is a consideration. POWER/LASHONDA Voice ID: [id number] Report ID: [id number]
[2019-05-17] MEDS ORDERED: AMLODIPINE 5 MG TAB PO SCH (11:00)
[2019-05-17] MEDS ORDERED: AMLODIPINE 5 MG TAB PO ONE (11:00)
--- NOTE | 2019-05-17 11:36 | PN ---
Date of Progress Note: 05/17/2019 Subjective: Patient seen and examined. Chart reviewed and case discussed with Dr. Leahy and Dr. Saúl black. The patient has been transferred to the hospitalist service, transferred to the ICU due to hyponatremia requiring hypertonic saline. Daughter at the bedside, treatment plan explained, all que stions answered. Medications: List reviewed. Physical Examination: Vital Signs: Temperature 99.4, heart rate 84, blood pressure 164/76, respirations 20, O2 at 98% on r oom air. General: Awake, alert, disoriented elderly female, ill-appearing. CV: S1, S2. Regular rate and rhythm. Peripheral pulses present. Respiratory: Moving air well bilaterally. No wheezing or stridor. Gastrointestinal: Abdomen is soft, nontender, nondistended. Positive bowel sounds. Extremities: No clubbing, cyanosis, or edema. Neurologic: Nonfocal. Laboratory Data: Sodium 118, potassium 3.7, chloride 87, CO2 of 19, BUN 8, creatinine 0.48, glucose 122, calcium 8.5. WBC 10.9, H and H of 13 and 38.1, platelets 267, neutrophils 90%. Urine culture g rowing mixed rosaline. Assessment And Plan: A 78-year-old female with: 1.Acute metabolic encephalopathy secondary to hyponatremia, residual anesthesia. Patient continues to be agitated especially at night. The patient received Haldol as well as morphine last night. We will continue fall risk precautions. 2.Acute delirium secondary to above. 3.Hyponatremia. We will check serum osmolality, likely due to SIADH. The patient will be started o n hypertonic saline. Appreciate Dr. Leahy's input. We will continue to monitor sodium levels clos jocelyn. 4.Hypokalemia. Replace and monitor. 5.Elevated blood pressure without diagnosis of hypertension. We will adjust amlodipine dose. 6.Hyperbilirubinemia, normalized, likely acute phase reactant. 7.Alzheimer's dementia, severe. 8.Behavioral disturbance, early onset. We will continue with p.r.n. medication. The patient is all ergic to donepezil. 9.Status post uterovaginal prolapse repair as per Dr. Jaimes. 10.Deep vein thrombosis prophylaxis. We will start on Lovenox and we will start on tube feeds as th e patient is confused, unable to safely tolerate p.o. intake. /LASHONDA Voice ID: [id number] Report ID: [id number]
--- NOTE | 2019-05-17 12:23 | P.CNS ---
Date of Consult: 05/17/19 Reason for Consult: Hyponatremia Requesting Physician: Shandra Jaimes Chief Complaint: AMS History of Present Illness: The patient is a 78-year-old female with no significant past medical history other than Alzheimer dementia, who had a procedure by Dr. Jaimes for cystocele prolapse. The patient had surgery yesterday and had elevated blood pressure postop, was seen by Cardiology and now subsequently has been having episodes of confusion, altered mental status, as well as agitation. Patient's morphine was discontinued. According to the daughter, patient has had this episode previously in 2018 with a surgery done on her ankle. Patient's symptoms are constant, moderate, progressively worsening. Therefore, hospitalist service was consulted for further management. Nephrology consult for AMS in the setting of acute hyponatremia. Limited HPI/ ROS due to AMS/ Dementia. Case reviewed with the family and nurse at the bedside. Allergies donepezil HCl [From Aricept] Allergy (Severe, Verified 05/12/19 12:37) muscle spasms Home medications list reviewed: Yes Home Medications: Aspirin [Aspirin EC 81 MG] 81 mg PO DAILY 02/18/19 Progesterone Cream 1 fadi VAG M,W,F 02/18/19 - Past Medical/Surgical History Diabetic: No -: Alzheimers, Neuropathy, Hypertension -: neuropathy -: hypertenison-not on medication -: left foot surg - 3-5 yrs ago - Social History Smoking Status: Never smoker Alcohol use: No CD- Drugs: No Caffeine use: No Place of Residence: Home Review of Systems is unable to be obtained (AMS/ Dementia) Physical Examination Temp Pulse Resp BP Pulse Ox 98.8 F 86 22 H 164/79 H 98 05/17/19 07:16 05/17/19 11:00 05/17/19 11:25 05/17/19 10:00 05/17/19 11:25 General: In no apparent distress, Cooperative HEENT: Atraumatic, Mucous membr. moist/pink Neck: Supple, No LAD Respiratory: Clear to auscultation bilaterally Cardiovascular: No edema, Regular rate/rhythm, No rubs Gastrointestinal: Hypoactive, Soft and benign, Non-distended Musculoskeletal: No clubbing, No contractures Integumentary: No rashes, No cyanosis Neurological: Normal speech Urinary: Pruitt catheter Laboratory Data (last 24 hrs) 05/17/19 05:55: Sodium 118 L*, Potassium 3.7, BUN 8, Creatinine 0.48 L, Glucose 122 H, Total Bilirubin 0.9, AST 30, ALT 21, Alkaline Phosphatase 97 05/16/19 20:00: Sodium 120 L 05/16/19 15:24: Sodium 120 L D, Potassium 3.2 L, BUN 5 L, Creatinine 0.55, Glucose 161 H, Total Bilirubin 1.3 H, AST 35, ALT 24, Alkaline Phosphatase 107 05/16/19 15:24: WBC 10.9 D, Hgb 13.0, Hct 38.1, Plt Count 267 Imagings Data: EXAM DESCRIPTION: RAD - Chest Single View - 05/16/2019 3:36 pm CLINICAL HISTORY: Shortness of breath COMPARISON: October 2018 TECHNIQUE: AP portable chest image was obtained 1532 hours . FINDINGS: No focal lung parenchymal process. Lung markings are prominent but not clearly different from the prior study. Shallow inspiration accentuates the lung markings compared to the October study. Trachea is midline. Heart and vasculature are normal. No measurable pleural effusion and no pneumothorax. No acute bony abnormality seen. No acute aortic findings suspected. IMPRESSION: No acute cardiopulmonary process. No significant change from October. Conclusions/Impression: A/ Post-operative Hyponatremia. Euvolemic hyponatremia. Hypokalemia. Acidosis. Hyperglycemia. HTN. Toxic metabolic encephalopathy. Alz Dementia. Acute cystitis? P/ Continue current POC and medications. Hypertonic saline as ordered. Replete potassium. Repeat BMP at 1800. Send urine lytes. Discontinue other IVF and Lasix at this time. Follow up urine culture. Encourage nutrition. AM labs. Daily weight. Thank you kindly for the consultation. Case discussed with Dr. Jaimes and Dr. Moore.
--- NOTE | 2019-05-17 15:42 | EKG ---
Test Date: 2019-05-17 Test Time: 01:18:40 Tabulating Machine Mechanic: RT MEASUREMENT RESULTS: Intervals: Rate: 101 MI: 146 QRSD: 88 QT: 356 QTc: 461 [place]: P: 59 MI: 146 QRS: 81 T: 56 INTERPRETIVE STATEMENTS: Sinus rhythm Normal ECG Compared to ECG 11/16/2018 16:17:39 no significant change from previous ECG Electronically Signed On 05-17-19 15:41:55 CDT by Rad Kenyon
[2019-05-17 18:40] LABS: BUN Blood Urea Nitrogen 7 mg/dL (7-18); Bicarbonate 20 mmol/L (21-32); Glucose Level 112 mg/dL (74-106); Potassium 3.3 mmol/L (3.5-5.1); Sodium Level 128 mmol/L (136-145)
[2019-05-17 19:50] LABS: Urine Appearance CLEAR; Urine Bilirubin NEGATIVE (NEG); Urine Blood TRACE (NEG); Urine Color YELLOW; Urine Glucose NEGATIVE (NEG); Urine Protein NEGATIVE (NEG); Urine Specific Gravity <=1.005 (1.005-1.030); Urine Urobilinogen 0.2 mg/dL (0.2-1.0)
[2019-05-17 20:43] LABS: Urine Bacteria <20 /HPF (<20); Urine Culture Reflex Order NOT NEEDED; Urine RBC <5 /HPF (NONE SEEN)
[2019-05-17] MEDS ORDERED: POTASSIUM 25 MEQ EFFERV TAB PO ONE (22:55)
[2019-05-17] MEDS ORDERED: SODIUM CHLORIDE 1 GM TAB PO ONE (23:00)
[2019-05-17] MEDS ORDERED: D50W 25 GM/50 ML SYRINGE IV PRN (23:08)
[2019-05-17] MEDS ORDERED: GLUCAGON 1 MG/VIAL IM PRN (23:08)
[2019-05-18] MEDS: ACETAMINOPHEN 500 MG TAB PO PRN (00:07)
[2019-05-18 06:41] LABS: ALT/SGPT 29 U/L (12-78); AST/SGOT 40 U/L (15-37); Albumin 3.2 g/dL (3.4-5.0); Alkaline Phosphatase 92 U/L (45-117); BUN Blood Urea Nitrogen 8 mg/dL (7-18); Bicarbonate 26 mmol/L (21-32); Bilirubin Total 0.6 mg/dL (0.2-1.0); Glucose Level 95 mg/dL (74-106); Magnesium 2.3 mg/dL (1.8-2.4); Phosphorus 1.5 mg/dL (2.5-4.9); Potassium 3.2 mmol/L (3.5-5.1); Protein, Total 7.1 g/dL (6.4-8.2); Sodium Level 138 mmol/L (136-145); Uric Acid 2.6 mg/dL (2.6-6.0)
[2019-05-18] MEDS: INSULIN -REGULAR HUMAN 50 UNIT/0.5 ML ML SQ SCH ×2 (07:30→11:30)
[2019-05-18] MEDS: AMLODIPINE 5 MG TAB PO SCH (08:34)
[2019-05-18] MEDS: NITROFURAN MACRO 100 MG CAP PO SCH (08:35)
[2019-05-18] MEDS: ENSURE HIGH PROTEIN 237 ML CAN PO SCH ×2 (08:35→19:41)
--- NOTE | 2019-05-18 12:58 | PN ---
Date of Progress Note: 05/18/2019 Subjective: Patient is seen and examined. Chart reviewed and case discussed with RN. Patient is do ing significantly better, much more awake and alert, not as confused. Did not require any p.r.n. med ications overnight for agitation, answer questions appropriately, asking for her . Medications: List reviewed. Physical Examination: Vital Signs: Temperature 97.6, heart rate 83, blood pressure 143/89, respirations 15, O2 of 97% on r oom air. General: Awake, alert, oriented to self. Patient does have some mild distress, elderly female. CV: S1, S2. Regular rate and rhythm. Peripheral pulses present. Respiratory: Moving air well bilaterally. No wheezing. Gastrointestinal: Abdomen is soft, nontender, nondistended. Positive bowel sounds. No guarding or rigidity. Extremities: No clubbing, cyanosis, or edema. Neuro: Cranial nerves 2 through 12 intact grossly. No focal neurological deficit. Speech is normal . Laboratory Data: Sodium 138, potassium 3.2, chloride 103, CO2 of 26, BUN 8, creatinine 0.57, glucose 95, uric acid 2.6, calcium 8.9, phosphorus 1.5, magnesium 2.3, albumin 3.2. WBC pending. Urine cul ture growing mixed rosaline. Assessment: A 78-year-old female with: 1.Acute metabolic encephalopathy secondary to hyponatremia and residual anesthetics significantly im proved. Sodium is better. Patient seems to be back to baseline. No further agitation. 2.Acute delirium secondary to above, improved. 3.Euvolemic hyponatremia. Appreciate Dr. Leahy's input. Patient's sodium now back to normal limi ts after hypertonic saline. 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 4.Hypokalemia, replaced. We will continue to monitor. 5.Hypophosphatemia. We will replace and monitor. 6.Elevated blood pressure without diagnosis of hypertension. Blood pressure now improved. 7.Alzheimer's dementia, early onset with behavioral disturbance, moderate to severe. Patient is all ergic to donepezil. 8.Status post cystocele repair by Dr. Jaimes, stable. Patient is having some dysuria and oliguria . 9.Deep venous thrombosis prophylaxis with SCDs. Have Lovenox due to bleeding. Plan: We will move out of ICU. SA/MODL Voice ID: [id number] Report ID: [id number]
--- NOTE | 2019-05-18 13:40 | P.PN ---
Date of Service: 05/18/19 Vital Signs Temp Pulse Resp BP Pulse Ox 97.6 F 71 12 143/85 H 97 05/18/19 08:00 05/18/19 10:00 05/18/19 10:00 05/18/19 10:00 05/18/19 10:00 Medications Acetaminophen (Tylenol -Extra Strength) 500 mg PO Q6H PRN PRN Reason: ABDOMINAL PAIN Stop: 06/14/19 11:05 Last Admin: 05/18/19 00:07 Dose: 500 mg Amlodipine Besylate (Norvasc) 10 mg PO DAILY [facility] Stop: 06/17/19 09:01 Last Admin: 05/18/19 08:34 Dose: 10 mg Dextrose (Dextrose 50% Syringe) 12.5 gm IV PRN PRN; Protocol PRN Reason: HYPOGLYCEMIA Stop: 06/16/19 23:09 Glucagon (Glucagen) 1 mg IM 1X PRN; Protocol PRN Reason: HYPOGLYCEMIA Stop: 06/16/19 23:09 Hydralazine HCl (Apresoline) 10 mg IV Q6HP PRN PRN Reason: Titrate to SBP (MUST DEFINE) Stop: 06/15/19 22:25 Last Admin: 05/16/19 22:47 Dose: 10 mg Potassium Phosphate 30 mm/ (Sodium Chloride) 500 mls @ 100 mls/hr IV 1X ONE; Protocol Stop: 05/18/19 18:59 Insulin Human Regular (Novolin -R) 0 unit SQ ACHS [facility]; Protocol Stop: 06/17/19 07:31 Nitrofurantoin Macrocrystals (Macrobid) 100 mg PO DAILY [facility]; Protocol Stop: 06/16/19 09:01 Last Admin: 05/18/19 08:35 Dose: 100 mg Nutritional Formula (Ensure High Protein) 237 ml PO BID [facility] Stop: 06/15/19 21:01 Last Admin: 05/18/19 08:35 Dose: 237 ml Ondansetron HCl (Zofran) 4 mg IV Q6HP PRN PRN Reason: NAUSEA / VOMITING Stop: 06/14/19 11:05 Last Admin: 05/17/19 17:01 Dose: 4 mg Sodium Chloride (Normal Saline Flush) 10 ml IV BID [facility] Stop: 06/14/19 21:01 Last Admin: 05/18/19 08:35 Dose: 10 ml Sodium Chloride (Normal Saline Flush) 10 ml IV PRN PRN PRN Reason: FLUSH BEFORE & AFTER EACH USE Stop: 06/14/19 11:05 Sterile Water (Sterile Water For Inj (10 Ml Vial)) 1.2 ml IM UD PRN PRN Reason: DILUTION OF MED Stop: 06/15/19 16:13 Ziprasidone (Geodon) 10 mg IM Q12H PRN PRN Reason: AGITATION Stop: 06/15/19 16:13 Last Admin: 05/16/19 19:59 Dose: 10 mg Lab Results (last 24 hrs) 05/18/19 11:59: POC Glucose 111 05/18/19 07:21: POC Glucose 95 05/18/19 05:30: Sodium 138, Potassium 3.2 L, Chloride 103, Carbon Dioxide 26, BUN 8, Creatinine 0.57, Estimated GFR > 90, Glucose 95, Uric Acid 2.6, Calcium 8.9, Phosphorus 1.5 L, Magnesium 2.3, Total Bilirubin 0.6, AST 40 H, ALT 29, Alkaline Phosphatase 92, Serum Total Protein 7.1, Albumin 3.2 L, Globulin 3.9 H , Albumin/Globulin Ratio 0.8 L 05/18/19 05:10: Ur Random Sodium 27 05/17/19 19:25: Urine Color Yellow, Urine Appearance Clear, Urine pH 6.0, Ur Specific Hamilton <=1.005, Urine Ketones 2+ H, Urine Blood Trace H, Urine Nitrite Negative, Urine Bilirubin Negative, Urine Urobilinogen 0.2, Ur Leukocyte Esterase Negative, Urine RBC <5, Urine WBC <5, Ur Squamous Epith Cells <5, Urine Bacteria <20, Urine Culture Reflexed Not needed, Urine Glucose Negative, Urine Total Protein Negative 05/17/19 19:25: Urine Osmolality 147 05/17/19 19:25: Urine Creatinine < 13.0 L 05/17/19 19:25: Ur Random Sodium 31 05/17/19 18:07: Serum Osmolality 255 L 05/17/19 18:07: Sodium 128 L, Potassium 3.3 L, Chloride 95 L, Carbon Dioxide 20 L, BUN 7, Creatinine 0.51 L, Estimated GFR > 90, Glucose 112 H, Calcium 8.7 Microbiology Results 05/13/19 13:30 Clean Catch Urine Avon Count - Final BETWEEN 10,000 & 100,000 CFU/ML 05/13/19 13:30 Clean Catch Urine - Final MIXED MANUEL. Assessment/ Plan: Nephrology/ ICU. Seen and examined in the ICU. Mental status improving per family and nurse. Limited IH/ ROS due to AMS/ Dementia. Vitals, medications, blood work and imaging reviewed in the chart. General: In no apparent distress, Cooperative HEENT: Atraumatic, Mucous membr. moist/pink Neck: Supple, No LAD Respiratory: Clear to auscultation bilaterally Cardiovascular: No edema, Regular rate/rhythm, No rubs Gastrointestinal: Hypoactive, Soft and benign, Non-distended Musculoskeletal: No clubbing, No contractures Integumentary: No rashes, No cyanosis Neurological: Normal speech Urinary: Pruitt catheter Greater than 30min patient care. Laboratory Data (last 24 hrs) 05/17/19 05:55: Sodium 118 L*, Potassium 3.7, BUN 8, Creatinine 0.48 L, Glucose 122 H, Total Bilirubin 0.9, AST 30, ALT 21, Alkaline Phosphatase 97 05/16/19 20:00: Sodium 120 L 05/16/19 15:24: Sodium 120 L D, Potassium 3.2 L, BUN 5 L, Creatinine 0.55, Glucose 161 H, Total Bilirubin 1.3 H, AST 35, ALT 24, Alkaline Phosphatase 107 05/16/19 15:24: WBC 10.9 D, Hgb 13.0, Hct 38.1, Plt Count 267 Imagings Data: EXAM DESCRIPTION: RAD - Chest Single View - 05/16/2019 3:36 pm CLINICAL HISTORY: Shortness of breath COMPARISON: October 2018 TECHNIQUE: AP portable chest image was obtained 1532 hours . FINDINGS: No focal lung parenchymal process. Lung markings are prominent but not clearly different from the prior study. Shallow inspiration accentuates the lung markings compared to the October study. Trachea is midline. Heart and vasculature are normal. No measurable pleural effusion and no pneumothorax. No acute bony abnormality seen. No acute aortic findings suspected. IMPRESSION: No acute cardiopulmonary process. No significant change from October. Conclusions/Impression: A/ Post-operative Hyponatremia. Euvolemic hyponatremia. Hypokalemia. HypoPO4. Acidosis. Hyperglycemia. HTN. Toxic metabolic encephalopathy. Alz Dementia. Acute cystitis? P/ Continue current POC and medications. Give IV potassium phosphate. Give oral potassium. Follow up urine culture. Encourage nutrition. AM labs. Daily weight.
[2019-05-18] MEDS ORDERED: DOCUSATE NA/SENNA CONC 1 TAB PO PRN (13:53)
[2019-05-18] MEDS ORDERED: POTASSIUM PHOS 30 MM in NA CHLORIDE 0.9% 500 ML IV ONE (14:00)
[2019-05-18] MEDS: DOCUSATE NA 100 MG CAP PO SCH ×2 (15:00→19:41)
--- NOTE | 2019-05-18 15:43 | PN ---
Ms. Kellogg's creatinine is fine. Her sodium is much better. She is more alert, doing better. Blood pressure is under control. Cardiology Services will sign off the case with Ms. Kellogg. Please call us back if you think we can be of assistance. POWER/LASHONDA Voice ID: [id number] Report ID: [id number]
[2019-05-18] MEDS ORDERED: POTASSIUM 25 MEQ EFFERV TAB PO ONE (16:00)
[2019-05-19 05:20] VITALS: BMI 19.8
[2019-05-19 06:22] LABS: ALT/SGPT 37 U/L (12-78); AST/SGOT 47 U/L (15-37); Albumin 3.2 g/dL (3.4-5.0); Alkaline Phosphatase 101 U/L (45-117); BUN Blood Urea Nitrogen 13 mg/dL (7-18); Bicarbonate 28 mmol/L (21-32); Bilirubin Total 0.8 mg/dL (0.2-1.0); Glucose Level 124 mg/dL (74-106); Potassium 3.5 mmol/L (3.5-5.1); Protein, Total 6.8 g/dL (6.4-8.2); Sodium Level 139 mmol/L (136-145)
[2019-05-19] MEDS: AMLODIPINE 5 MG TAB PO SCH (09:09)
[2019-05-19] MEDS: DOCUSATE NA 100 MG CAP PO SCH (09:09)
[2019-05-19] MEDS: NITROFURAN MACRO 100 MG CAP PO SCH (09:09)
[2019-05-19] MEDS: ENSURE HIGH PROTEIN 237 ML CAN PO SCH (09:10)
--- NOTE | 2019-05-19 10:52 | RAD REPORT ---
EXAM DESCRIPTION: Chest Single View CLINICAL HISTORY: S/P PICC insertion COMPARISON: None. TECHNIQUE: XR CHEST 1 VIEW 05/17/2019 11:13 PM CDT FINDINGS: Cardiac silhouette is normal in size. Lungs are clear without consolidation, atelectasis, mass or edema. There is a small left pleural effusion. There is no pneumothorax. There are no acute o sseous findings. Right PICC line tip is in the mid SVC. IMPRESSION: Right PICC line tip in the mid SVC. Electronically signed by: James Connell MD 05/18/2019 12:03 AM CDT Due to temporary technical issues with the PACS/Fluency reporting system, reports are being signed by the in house radiologist as a courtesy to ensure prompt reporting. The interpreting radiologist is f ully responsible for the content of the report.
[2019-05-19 12:51] VITALS: BP 116/67; TEMP 97.8
[2019-05-19 13:36] VITALS: O2SAT 98
--- NOTE | 2019-05-20 07:42 | DS ---
Date of Discharge: 05/19/2019 Consultants: Dr. Kenyon, cardiology. Dr. Leahy, Nephrology, and Dr. Jaimes with [facility] [facility]. Procedures: Dr. Jaimes on 05/15/2019, anterior repair with suture, mild urethral sling and cystosc opy, posterior repair, posterior enterocele repair, right sacrospinous ligament fixation, colpopexy, perineorrhaphy for uterine prolapse and enterocele. Admitting Diagnoses: 1.Ureterocele and cystocele status post repair. 2.Alzheimer dementia. Discharge Diagnoses: 1.Acute metabolic encephalopathy, resolved. 2.Acute euvolemic hyponatremia. 3.Acute delirium. 4.Hypokalemia. 5.Hypophosphatemia. 6.Hypertension. 7.Alzheimer dementia early onset with behavioral disturbance. 8.Status post uterine and cystocele prolapse repair. Hospital Course: Patient is a 78-year-old female who is admitted under Dr. Jaimes's service [facility] at the [facility] [place] and underwent procedure as mentioned above for urinary stress incontinence. The patient does have a past medical history of dementia and was acutely delirious and confused pos t surgery. Patient also had elevated blood pressure. Cardiology was consulted by Dr. Jaimes. Injerzy cooper patient was started on amlodipine. Her blood pressure improved. Due to her significant worse wesly in mental status, Hospitalist Service was consulted. Workup revealed hyponatremia which was acu te. Her sodium had dropped from 143 on the 18th to 120. She also had hypokalemia and hypophosphatem ia. Patient was started on normal saline switched over from D5 half NS, however, her sodium continue d to drop, therefore she was transferred to the ICU and Nephrology was consulted. Patient was starte d on hypertonic saline. Her sodium was monitored closely. As her sodium improved her mental status also improved. She was taken off hypertonic saline. Her electrolytes were replaced. 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 Patient did require Haldol and Geodon for agitation. Once her sodium level corrected, kaity baxter's mental status improved significantly. Her head CT scan was also negative. She most likely had a combination of encephalopathy from the hyponatremia as well as a residual anesthetic. Patient overall did well. She was to be initiated on parental nutrition, however, she was able to wake up, w as not confused and back to her baseline and able to tolerate food. Patient was then cleared for dis charge from identity management consultant's standpoint. She has a new diagnosis of hypertension. She previously did no t have any diagnosis of hypertension. She will be discharged on amlodipine. Medications: As per medication reconciliation list. Condition: Stable. Activity: Ad sheila. Diet: Heart healthy. Followup: Follow up with primary care physician in 2 days. Follow up with doorkeeper, Dr. Leahy in 2 weeks. Follow up with [employer] [facility], Dr. Jaimes in 2 weeks. Return to ER for worsening condition. Physical Examination: General: Awake, alert, oriented to self only, elderly female, frail, cachectic. BMI 19. CV: S1-S2. Respiratory: Moving air well bilaterally. Abdomen: Soft, nontender, nondistended. Positive bowel sounds. Extremities: No clubbing, cyanosis, or edema. Neurologic: Nonfocal. Time Spent: Total time spent discharging patient was 37 minutes. /LASHONDA Voice ID: [id number] Report ID: [id number]
== END 2019-05-19 12:58 | disposition home or self-care (01) | DRG 746 ==
LOC: OR 06:33 → 2ND-WC 11:09 → OR 05-16 15:36 → 3RD-ICU 05-17 07:38 → 2ND 05-18 15:40
PROVIDERS: ADMIT Family Medicine; ATTEND Obstetrics & Gynecology
PROC: 0UQF0ZZ Repair Cul-de-sac, Open Approach (ICD-10-PCS; 2019-05-15)
PROC: 0JQC0ZZ Repair Pelvic Region Subcutaneous Tissue and Fascia, Open Approach (ICD-10-PCS; 2019-05-15)
PROC: 0USG0ZZ Reposition Vagina, Open Approach (ICD-10-PCS; 2019-05-15)
PROC: 0TSC0ZZ Reposition Bladder Neck, Open Approach (ICD-10-PCS; 2019-05-15)
PROC: 0HQ9XZZ Repair Perineum Skin, External Approach (ICD-10-PCS; 2019-05-15)
PROC: 0JQC0ZZ Repair Pelvic Region Subcutaneous Tissue and Fascia, Open Approach (ICD-10-PCS; principal; 2019-05-15 07:30)
PROC: 02HV33Z Insertion of Infusion Device into Superior Vena Cava, Percutaneous Approach (ICD-10-PCS; 2019-05-17)
DX: N81.2 Incomplete uterovaginal prolapse (principal); G93.41 Metabolic encephalopathy; E22.2 Syndrome of inappropriate secretion of antidiuretic hormone; F05 Delirium due to known physiological condition; F02.81 Dementia in other diseases classified elsewhere, unspecified severity, with behavioral disturbance; E87.2 Acidosis; E46 Unspecified protein-calorie malnutrition; Z68.1 Body mass index [BMI] 19.9 or less, adult; N39.3 Stress incontinence (female) (male); E87.6 Hypokalemia; E83.39 Other disorders of phosphorus metabolism; I10 Essential (primary) hypertension; G30.0 Alzheimer's disease with early onset; E80.6 Other disorders of bilirubin metabolism
CPT/HCPCS: 36415; 70450; 71045; 80048; 80053; 81001; 81003; 81015; 82570; 82962; 83735; 83930; 83935; 84100; 84295; 84300; 84550; 85025; 85610; 85730; 86850; 86900; 86901; 87086; 87088; 93005; 97161; J0690; J1630; J2175; J2270; J2405; J2704; J2710; J3010; J7030

== ENCOUNTER 2019-06-14 05:34 | Emergency (ER) | payer OTHER ==
--- OUTSIDE RECORDS SUMMARY | 2019-06-14 05:36 | XMS REPORT | Clinical Summary ---
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
[2019-06-14] MEDS ORDERED: NA CHLORIDE 0.9% 1,000 ML ONE (06:00)
[2019-06-14 06:18] LABS: Absolute Lymphocytes (CBC) 2.2 K/uL (0.7-4.9); Basophils % 1.1 % (0-1.3); Hematocrit 37.6 % (36.0-45.0); Lymphocytes % 42.4 % (15.3-44.8); MPV 7.7 fL (7.6-11.3); RBC Red Blood Cell Count 4.27 M/uL (3.86-4.86)
[2019-06-14 06:49] LABS: ALT/SGPT 17 U/L (12-78); AST/SGOT 19 U/L (15-37); Albumin 3.8 g/dL (3.4-5.0); Alkaline Phosphatase 82 U/L (45-117); BUN Blood Urea Nitrogen 10 mg/dL (7-18); Bicarbonate 31 mmol/L (21-32); Bilirubin Direct 0.1 mg/dL (0-0.2); Bilirubin Total 0.6 mg/dL (0.2-1.0); Glucose Level 91 mg/dL (74-106); Lipase 95 U/L (73-393); Magnesium 2.3 mg/dL (1.8-2.4); NT PRO-BNP 125 pg/mL (<450); Potassium 3.9 mmol/L (3.5-5.1); Protein, Total 7.5 g/dL (6.4-8.2); Sodium Level 144 mmol/L (136-145); Troponin (Emerg Dept Use Only) < 0.02 ng/mL (0.0-0.045)
[2019-06-14] MEDS ORDERED: CEFTRIAXONE/SWI 1gm 1 GM/10 ML SYR ONE (07:40)
[2019-06-14 07:50] LABS: Blood Morphology Comment NOT SEEN (NOT SEEN); Platelet Estimate ADEQ
[2019-06-14 09:02] LABS: Urine Blood NEGATIVE (NEG); Urine Glucose NEGATIVE (NEG); Urine Protein NEGATIVE (NEG); Urine Specific Gravity 1.015 (1.005-1.030)
--- NOTE | 2019-06-14 09:40 | RAD REPORT ---
EXAM DESCRIPTION: CTAbdomen Pelvis W Contrast - 06/14/2019 9:07 am CLINICAL HISTORY: Abdominal pain. ABD PAIN COMPARISON: Abdomen Pelvis W Contrast dated 02/14/2019 TECHNIQUE: Biphasic CT imaging of the abdomen and pelvis was performed with 100 ml non-ionic IV cont rast. All CT scans are performed using dose optimization technique as appropriate and may include automated exposure control or mA/KV adjustment according to patient size. FINDINGS: The lung bases are clear.Cholecystectomy clips. The liver, spleen, pancreas, adrenal glands and kidneys are within normal limits. No bowel obstruction, free air, free fluid or abscess. Significant sigmoid diverticulosis. No diverti culitis. Moderate fecal retention. The appendix is normal. No evidence of significant lymphadenopath y. Lumbar degenerative changes are present. IMPRESSION: No acute intra-abdominal or pelvic finding. Prominent sigmoid diverticulosis coli. Moderate fecal retention.
--- NOTE | 2019-06-14 10:08 | EDPHYS ---
Physician Documentation [facility] Name: Yelitza Kellogg Age: 78 yrs Sex: Female : 1940 Arrival Date: 06/14/2019 Time: 05:36 Bed 8 Private MD: CORAL Physician Adelso De Los Santos HPI: 06/14 05:58 This 78 yrs old Female presents to ER via Wheelchair with complaints of Post casey Surgical Pain - Abdominal. 05:58 The patient presents with abdominal pain in the upper abdomen, in the lower abdomen, casey abdominal distention in the upper abdomen, in the lower abdomen. Onset: The symptoms/episode began/occurred just prior to arrival, this morning. The symptoms do not radiate. Associated signs and symptoms: none. The symptoms are described as achy. Modifying factors: The symptoms are alleviated by nothing, the symptoms are aggravated by nothing. Severity of pain: At its worst the pain was moderate in the emergency department the pain has improved markedly. The patient has not experienced similar symptoms in the past. Historical: - Allergies: 05:50 NKDA; jb4 - Home Meds: 05:50 stool softner [Active]; a blood thinner [Active]; jb4 - PMHx: 05:50 Alzheimers; Chronic pain; Dementia; Hypertension; jb4 - PSHx: 05:50 abdominal; Left foot; jb4 - Immunization history:: Adult Immunizations up to date. - Social history:: Smoking status: Patient/guardian denies using tobacco, Patient/guardian denies using alcohol. - Family history:: not pertinent. - Ebola Screening: : No symptoms or risks identified at this time. ROS: 05:58 Constitutional: Negative for fever, chills, and weight loss, Eyes: Negative for injury, casey pain, redness, and discharge, ENT: Negative for injury, pain, and discharge, Neck: Negative for injury, pain, and swelling, Cardiovascular: Negative for chest pain, palpitations, and edema, Respiratory: Negative for shortness of breath, cough, wheezing, and pleuritic chest pain, Back: Negative for injury and pain, : Negative for injury, bleeding, discharge, and swelling, MS/Extremity: Negative for injury and deformity, Skin: Negative for injury, rash, and discoloration, Neuro: Negative for headache, weakness, numbness, tingling, and seizure. 05:58 Abdomen/GI: Positive for abdominal pain, of the right upper quadrant, left upper quadrant, right lower quadrant and left lower quadrant. Exam: 05:58 Constitutional: This is a well developed, well nourished patient who is awake, alert, casey and in no acute distress. Head/Face: Normocephalic, atraumatic. Eyes: Pupils equal round and reactive to light, extra-ocular motions intact. Lids and lashes normal. Conjunctiva and sclera are non-icteric and not injected. Cornea within normal limits. Periorbital areas with no swelling, redness, or edema. ENT: Nares patent. No nasal discharge, no septal abnormalities noted. Tympanic membranes are normal and external auditory canals are clear. Oropharynx with no redness, swelling, or masses, exudates, or evidence of obstruction, uvula midline. Mucous membranes moist. Neck: Trachea midline, no thyromegaly or masses palpated, and no cervical lymphadenopathy. Supple, full range of motion without nuchal rigidity, or vertebral point tenderness. No Meningismus. Chest/axilla: Normal chest wall appearance and motion. Nontender with no deformity. No lesions are appreciated. Cardiovascular: Regular rate and rhythm with a normal S1 and S2. No gallops, murmurs, or rubs. Normal PMI, no JVD. No pulse deficits. Respiratory: Lungs have equal breath sounds bilaterally, clear to auscultation and percussion. No rales, rhonchi or wheezes noted. No increased work of breathing, no retractions or nasal flaring. Back: No spinal tenderness. No costovertebral tenderness. Full range of motion. Female : Normal external genitalia. Skin: Warm, dry with normal turgor. Normal color with no rashes, no lesions, and no evidence of cellulitis. MS/ Extremity: Pulses equal, no cyanosis. Neurovascular intact. Full, normal range of motion. Neuro: Awake and alert, GCS 15, oriented to person, place, time, and situation. Cranial nerves II-XII grossly intact. Motor strength 5/5 in all extremities. Sensory grossly intact. Cerebellar exam normal. Normal gait. Psych: Awake, alert, with orientation to person, place and time. Behavior, mood, and affect are within normal limits. 05:58 Abdomen/GI: Inspection: abdomen appears normal, Bowel sounds: normal, Palpation: mild abdominal tenderness, in the right upper quadrant and right lower quadrant, Liver: no appreciated palpable abnormalities, Hernia: not appreciated. Vital Signs: 05:50 BP 146 / 89; Pulse 67; Resp 18; Temp 97.7(O); Pulse Ox 98% on R/A; Weight 57.61 kg (R); jb4 Height 5 ft. 6 in. (167.64 cm) (R); Pain 0/10; 07:00 BP 158 / 109; Pulse 84; Resp 17; Pulse Ox 100% ; bp 08:22 BP 153 / 85; Pulse 63; Resp 16; Pulse Ox 100% on R/A; ae4 10:03 BP 137 / 71; Pulse 63; Resp 17; Pulse Ox 97% on R/A; ae4 05:50 Body Mass Index 20.50 (57.61 kg, 167.64 cm) jb4 MDM: 05:[address] [facility] 06:01 Data reviewed: vital signs, nurses notes, lab test result(s), EKG, radiologic studies, [facility] CT scan, plain films. 06/14 05:58 Order name: Basic Metabolic Panel; Complete Time: 06:54 [facility] 06/14 05:58 Order name: CBC with Diff; Complete Time: 07:53 [facility] 06/14 05:58 Order name: LFT's; Complete Time: 06:54 [facility] 06/14 05:58 Order name: Magnesium; Complete Time: 06:54 [facility] 06/14 05:58 Order name: NT PRO-BNP; Complete Time: 06:54 [facility] 06/14 05:58 Order name: PT-INR; Complete Time: 06:54 [facility] 06/14 05:58 Order name: Troponin (emerg Dept Use Only); Complete Time: 06:54 [facility] 06/14 05:58 Order name: XRAY Chest (1 view) [facility] 06/14 05:58 Order name: Lipase; Complete Time: 06:54 [facility] 06/14 05:58 Order name: Urine Culture [facility] 06/14 05:58 Order name: CT Abd/Pelvis - PO and IV Contrast; Complete Time: 09:59 [facility] 06/14 07:28 Order name: Urine Dipstick--Ancillary (enter results); Complete Time: 09:07 aa5 06/14 07:50 Order name: Manual Differential; Complete Time: 07:53 EDMS 06/14 05:58 Order name: EKG; Complete Time: 05:59 [facility] 06/14 05:58 Order name: Cardiac monitoring; Complete Time: 06:14 [facility] 06/14 05:58 Order name: EKG - Nurse/Tech; Complete Time: 06:26 [facility] 06/14 05:58 Order name: IV Saline Lock; Complete Time: 06:26 [facility] 06/14 05:58 Order name: Labs collected and sent; Complete Time: 06:14 [facility] 06/14 05:58 Order name: O2 Per Protocol; Complete Time: 05:59 [facility] 06/14 05:58 Order name: O2 Sat Monitoring; Complete Time: 05:59 [facility] 06/14 05:58 Order name: Urine Dipstick-Ancillary (obtain specimen); Complete Time: 07: [facility] Administered Medications: 06:26 Drug: NS 0.9% 500 ml Route: IV; Rate: bolus; Site: left antecubital; ak1 10:34 Follow up: IV Status: Completed infusion ae4 06:26 Drug: NS 0.9% 1000 ml Route: IV; Rate: 125 ml/hr; Site: left antecubital; ak1 10:34 Follow up: IV Status: Order to discontinue infusion; IV Intake: 700ml ae4 07:38 Drug: Rocephin 1 grams Route: IV; Rate: per protocol; Site: left antecubital; ae4 07:46 Follow up: IV Status: Completed infusion ae4 Disposition: 06/14/19 10:06 Discharged to Home. Impression: Urinary tract infection, site not specified, Abdominal tenderness, Dementia in other diseases classified elsewhere, Constipation. - Condition is Stable. - Discharge Instructions: Abdominal Pain, Adult, Dementia, Dysuria, Urinary Tract Infection, Adult, Dementia, [id number], Constipation, Adult, Rehydration, Elderly. - Prescriptions for Bentyl 20 mg Oral Tablet - take 1 tablet by ORAL route every 6 hours As needed; 20 tablet. Cipro 250 mg Oral Tablet - take 1 tablet by ORAL route every 12 hours; 14 tablet. Miralax 17 gram/dose Oral - take 1 packet by ORAL route once daily dilute powder in 8 ounces of water or juice; 1 box. - Medication Reconciliation Form, Thank You Letter, Antibiotic Education, Prescription Opioid Use form. - Follow up: Private Physician; When: 2 - 3 days; Reason: Recheck today's complaints, Continuance of care, Re-evaluation by your physician. Follow up: Shandra Jaimes; When: 2 - 3 days; Reason: Recheck today's complaints, Continuance of care, Re-evaluation by your physician. - Problem is new. - Symptoms have improved. Signatures: Dispatcher [employer] EDMS Adelso De Los Santos MD MD cha Therrien, Shelly, LEGAL EXECUTIVE-C LEGAL EXECUTIVE-Csnw Melissa Hamilton RN RN ak1 Sigifredo Mallory RN RN jb4 Narendra Savage RN RN ae4 Corrections: (The following items were deleted from the chart) 10:10 10:06 06/14/2019 10:06 Discharged to Home. Impression: Urinary tract infection, site snw not specified; Abdominal tenderness; Dementia in other diseases classified elsewhere. Condition is Stable. Discharge Instructions: Abdominal Pain, Adult, Dementia, Dysuria, Urinary Tract Infection, Adult, Urinary Tract Infection, Adult, [id number], Dementia, [id number]. Prescriptions for Bentyl 20 mg Oral Tablet - take 1 tablet by ORAL route every 6 hours As needed; 20 tablet, Cipro 250 mg Oral Tablet - take 1 tablet by ORAL route every 12 hours; 14 tablet. and Forms are Medication Reconciliation Form, Thank You Letter, Antibiotic Education, Prescription Opioid Use. Follow up: Private Physician; When: 2 - 3 days; Reason: Recheck today's complaints, Continuance of care, Re-evaluation by your physician. Follow up: Shandra Jaimes; When: 2 - 3 days; Reason: Recheck today's complaints, Continuance of care, Re-evaluation by your physician. Problem is new. Symptoms have improved. snw 10:34 10:10 06/14/2019 10:06 Discharged to Home. Impression: Urinary tract infection, site ae4 not specified; Abdominal tenderness; Dementia in other diseases classified elsewhere; Constipation. Condition is Stable. Discharge Instructions: Abdominal Pain, Adult, Dementia, Dysuria, Urinary Tract Infection, Adult, Urinary Tract Infection, Adult, [id number], Dementia, [id number]. Prescriptions for Bentyl 20 mg Oral Tablet - take 1 tablet by ORAL route every 6 hours As needed; 20 tablet, Cipro 250 mg Oral Tablet - take 1 tablet by ORAL route every 12 hours; 14 tablet. and Forms are Medication Reconciliation Form, Thank You Letter, Antibiotic Education, Prescription Opioid Use. Follow up: Private Physician; When: 2 - 3 days; Reason: Recheck today's complaints, Continuance of care, Re-evaluation by your physician. Follow up: Shandra Jaimes; When: 2 - 3 days; Reason: Recheck today's complaints, Continuance of care, Re-evaluation by your physician. Problem is new. Symptoms have improved. snw
--- NOTE | 2019-06-14 10:08 | ER ---
Nurse's Notes [facility] Name: Yelitza Kellogg Age: 78 yrs Sex: Female : 1940 Arrival Date: 06/14/2019 Time: 05:36 Bed 8 Private MD: Diagnosis: Urinary tract infection, site not specified;Abdominal tenderness;Dementia in other diseases classified elsewhere;Constipation Presentation: 06/14 05:50 Presenting complaint: states: Around 0400 this morning she woke up crying and jb4 screaming in pain and saying that her stomach was hurting. I thought it was something she ate so I gave her some Tums. the pain did not subside so we came here worried it had something to do with her surgery on May 15. 05:50 Transition of care: patient was not received from another setting of care. Onset of jb4 symptoms was June 14, 2019. Risk Assessment: Do you want to hurt yourself or someone else? Patient reports no desire to harm self or others. Initial Sepsis Screen: Does the patient meet any 2 criteria? No. Patient's initial sepsis screen is negative. Does the patient have a suspected source of infection? No. Patient's initial sepsis screen is negative. Care prior to arrival: None. 05:50 Method Of Arrival: Wheelchair jb4 05:50 Acuity: ELIAS 3 jb4 Triage Assessment: 05:50 General: Appears in no apparent distress. comfortable, Behavior is calm, cooperative. jb4 Pain: Complains of pain in abdomen Pain does not radiate. Pain currently is 0 out of 10 on a pain scale. at worst was 10 out of 10 on a pain scale. Historical: - Allergies: 05:50 NKDA; jb4 - Home Meds: 05:50 stool softner [Active]; a blood thinner [Active]; jb4 - PMHx: 05:50 Alzheimers; Chronic pain; Dementia; Hypertension; jb4 - PSHx: 05:50 abdominal; Left foot; jb4 - Immunization history:: Adult Immunizations up to date. - Social history:: Smoking status: Patient/guardian denies using tobacco, Patient/guardian denies using alcohol. - Family history:: not pertinent. - Ebola Screening: : No symptoms or risks identified at this time. Screenin:14 Abuse screen: Denies threats or abuse. Denies injuries from another. Nutritional ak1 screening: No deficits noted. Tuberculosis screening: No symptoms or risk factors identified. Fall Risk None identified. Assessment: 06:14 General: Appears in no apparent distress. comfortable, Behavior is calm, cooperative. ak1 Pain: Denies pain. Neuro: Level of Consciousness is awake, alert, obeys commands, Oriented to person, place, situation, Moves all extremities. Cardiovascular: No deficits noted. Respiratory: Airway is patent Respiratory effort is even, unlabored, Respiratory pattern is regular. GI: Abdomen is flat, non-distended, Bowel sounds present X 4 quads. Reports lower abdominal pain. : No signs and/or symptoms were reported regarding the genitourinary system. EENT: No signs and/or symptoms were reported regarding the EENT system. Derm: No signs and/or symptoms reported regarding the dermatologic system. Musculoskeletal: No signs and/or symptoms reported regarding the musculoskeletal system. 06:28 Reassessment: pt drinking oral contrast. pt and notified to contact RN once ak1 finished. 07:00 Reassessment: RECD REPORT FROM MELISSA DELGADO. 78YO WF P/W ABDOMINAL PAIN S/P SX 1 MONTH AGO. bp 07:33 Reassessment: Patient up to bedside commode with assistance to urinate. Patient ae4 provided urine sample at this time. Patient assisted back into bed with assistance. remains at bedside. 07:37 Reassessment: Patient completed PO contrast, notified CT via telephone, spoke to aeMaura Lang. 08:21 Reassessment: Patient assisted to bedside commode to urinate. Output approximately 300 ae4 mls light yellow urine. 10:00 Reassessment: Patient assisted up to bedside commode to have BM. Slightly liquid stool ae4 observed. 10:15 Reassessment: Provider at bedside discussing plan of care. ae4 Vital Signs: 05:50 BP 146 / 89; Pulse 67; Resp 18; Temp 97.7(O); Pulse Ox 98% on R/A; Weight 57.61 kg (R); jb4 Height 5 ft. 6 in. (167.64 cm) (R); Pain 0/10; 07:00 BP 158 / 109; Pulse 84; Resp 17; Pulse Ox 100% ; bp 08:22 BP 153 / 85; Pulse 63; Resp 16; Pulse Ox 100% on R/A; ae4 10:03 BP 137 / 71; Pulse 63; Resp 17; Pulse Ox 97% on R/A; ae4 05:50 Body Mass Index 20.50 (57.61 kg, 167.64 cm) jb4 ED Course: 05:36 Patient arrived in ED. ds1 05:38 Adelso De Los Santos MD is Attending Physician. casey 05:50 Arm band placed on right wrist. jb4 05:53 Melissa Hamilton, RN is Primary Nurse. ak1 05:58 Triage completed. jb4 06:14 Patient has correct armband on for positive identification. Placed in gown. Bed in low ak1 position. Call light in reach. Side rails up X2. Adult w/ patient. electronic device monitor on. Pulse ox on. NIBP on. 06:14 Missed attempt(s): 22 gauge in right antecubital area. Bleeding controlled, band aid ak1 applied, catheter tip intact. 06:25 Inserted saline lock: 22 gauge in left antecubital area, using aseptic technique. fc 06:27 Initial lab(s) drawn, by me, sent to lab. EKG done, by ED staff, reviewed by Adelso De Los Santos MD X-ray(s) taken. 06:55 XRAY Chest (1 view) In Process Unspecified. EDMS 07:27 Radiology exam delayed due to pt did not drink oral contrast and went to sleep. was kw1 just given a straw and reinstructed to drink contrast. 07:48 Patricia Gaffney FNP-C is PHCP. snw 08:22 Warm blanket given. Pillow given. ae4 09:09 CT Abd/Pelvis - PO and IV Contrast In Process Unspecified. EDMS 10:06 Shandra Jaimes MD is Referral Physician. snw 10:33 No provider procedures requiring assistance completed. intact, bleeding controlled, No ae4 redness/swelling at site. Pressure dressing applied. Administered Medications: 06:26 Drug: NS 0.9% 500 ml Route: IV; Rate: bolus; Site: left antecubital; ak1 10:34 Follow up: IV Status: Completed infusion ae4 06:26 Drug: NS 0.9% 1000 ml Route: IV; Rate: 125 ml/hr; Site: left antecubital; ak1 10:34 Follow up: IV Status: Order to discontinue infusion; IV Intake: 700ml ae4 07:38 Drug: Rocephin 1 grams Route: IV; Rate: per protocol; Site: left antecubital; ae4 07:46 Follow up: IV Status: Completed infusion ae4 Intake: 10:34 IV: 700ml; Total: 700ml. ae4 Outcome: 10:06 Discharge ordered by . snw 10:33 Discharged to home via wheelchair, with significant other. ae4 10:33 Condition: stable 10:33 Discharge instructions given to patient, significant other, Instructed on discharge instructions, follow up and referral plans. medication usage, Demonstrated understanding of instructions, Prescriptions given X 3. 10:34 Patient left the ED. ae4 Signatures: Dispatcher [employer] EDMS Adelso De Los Santos MD MD cha Therrien, Shelly, SUPERVISOR MALTED MILK-C SUPERVISOR MALTED MILK-Csnw Tatiana Farrar, RN RN Karli Salazar dsMelissa Miller RN RN [email or web address] Sigifredo Mallory RN RN Alvarado Vazquez RN Merced Sidhu kw1 Narendra Savage, RN RN ae4 Corrections: (The following items were deleted from the chart) 06:28 06:14 Initial lab(s) drawn, by me, sent to lab. Urine collected: clean catch specimen, soila ak1 10:04 10:00 Reassessment: Patient assisted up to bedside commode to have BM. ae4 ae4
[2019-06-14 10:55] VITALS: TEMP 97.7
[2019-06-14 10:59] VITALS: BP 137/71; O2SAT 97
--- NOTE | 2019-06-14 11:17 | RAD REPORT ---
EXAM DESCRIPTION: RAD - Chest Single View - 06/14/2019 6:54 am CLINICAL HISTORY: ABDOMINAL DISTENTION Chest pain. COMPARISON: Chest Single View dated 05/17/2019; Chest Single View dated 05/16/2019; Chest Single View dated 11/16/2018; CHEST SINGLE VIEW dated 11/25/2014 FINDINGS: Portable technique limits examination quality. The lungs are emphysematous but grossly clear. The heart is normal in size. No displaced fractures. IMPRESSION: No acute intrathoracic process suspected.
--- NOTE | 2019-06-15 13:21 | EKG ---
Test Date: 2019-06-14 Test Time: 06:24:24 Roller Skater: TAWANNA MEASUREMENT RESULTS: Intervals: Rate: 62 OH: 160 QRSD: 90 QT: 416 QTc: 422 [place]: P: 84 OH: 160 QRS: 74 T: 72 INTERPRETIVE STATEMENTS: Normal sinus rhythm Septal infarct, age undetermined Abnormal ECG Compared to ECG 05/17/2019 01:18:40 Myocardial infarct finding now present Electronically Signed On 06-15-19 13:19:06 CDT by Fransisco Mccurdy
== END 2019-06-14 10:34 | disposition home or self-care (01) ==
LOC: ER 05:34
DX: N39.0 Urinary tract infection, site not specified (principal); K59.00 Constipation, unspecified; F03.90 Unspecified dementia, unspecified severity, without behavioral disturbance, psychotic disturbance, mood disturbance, and anxiety; G30.9 Alzheimer's disease, unspecified; F02.80 Dementia in other diseases classified elsewhere, unspecified severity, without behavioral disturbance, psychotic disturbance, mood disturbance, and anxiety
CPT/HCPCS: 96361; 93005; 87088; 85025; 87086; 80048; 36415; 83735; 85610; 80076; 81003; 84484; 83690; 83880; 74177; 71045; 96374; 99285; Q9967; J0696; J7030

== ENCOUNTER 2019-09-20 11:30 | Emergency (ER) | payer OTHER ==
[2019-09-20 12:42] LABS: Absolute Lymphocytes (CBC) 1.9 K/uL (0.7-4.9); Basophils % 0.5 % (0-1.3); Hematocrit 38.2 % (36.0-45.0); Lymphocytes % 31.6 % (15.3-44.8); MPV 7.3 fL (7.6-11.3); RBC Red Blood Cell Count 4.36 M/uL (3.86-4.86)
[2019-09-20] MEDS ORDERED: NA CHLORIDE 0.9% 1,000 ML ONE (12:57)
[2019-09-20 12:58] LABS: ALT/SGPT 25 U/L (12-78); AST/SGOT 20 U/L (15-37); Albumin 3.7 g/dL (3.4-5.0); Alkaline Phosphatase 105 U/L (45-117); BUN Blood Urea Nitrogen 12 mg/dL (7-18); Bicarbonate 30 mmol/L (21-32); Bilirubin Direct < 0.1 mg/dL (0-0.2); Bilirubin Total 0.4 mg/dL (0.2-1.0); Glucose Level 54 mg/dL (74-106); Magnesium 2.3 mg/dL (1.8-2.4); NT PRO-BNP 466 pg/mL (<450); Potassium 3.5 mmol/L (3.5-5.1); Protein, Total 7.7 g/dL (6.4-8.2); Sodium Level 141 mmol/L (136-145); Troponin (Emerg Dept Use Only) < 0.02 ng/mL (0.0-0.045)
--- NOTE | 2019-09-20 13:10 | RAD REPORT ---
EXAM DESCRIPTION: RAD - Chest Single View - 09/20/2019 12:35 pm CLINICAL HISTORY: Chest pain, abdominal pain, left arm pain COMPARISON: May 2019 TECHNIQUE: AP portable chest image was obtained 1222 hour . FINDINGS: No focal lung parenchymal process. No failure or volume overload. Interstitial pattern mat ches comparison. Hilar regions are similar to comparison. Heart and vasculature are normal. No measur able pleural effusion and no pneumothorax. No acute bony abnormality seen. No acute aortic findings s uspected. IMPRESSION: No acute cardiopulmonary process. Chest findings are similar to comparison.
[2019-09-20] MEDS ORDERED: CEFTRIAXONE/SWI 1gm 1 GM/10 ML SYR ONE (13:57)
[2019-09-20 14:12] LABS: Urine Blood NEGATIVE (NEG); Urine Glucose NEGATIVE (NEG); Urine Protein NEGATIVE (NEG); Urine Specific Gravity 1.015 (1.005-1.030); Urine pH 6.5 (5.0-7.0)
--- NOTE | 2019-09-20 15:24 | RAD REPORT ---
EXAM DESCRIPTION: CT - Abdomen Pelvis W Contrast - 09/20/2019 3:06 pm CLINICAL HISTORY: ABD PAIN COMPARISON: CT study May 2019 TECHNIQUE: Biphasic, helical CT imaging of the abdomen and pelvis was performed following 100 ml non -ionic IV contrast. Oral contrast was given. All CT scans are performed using dose optimization technique as appropriate and may include automated exposure control or mA/KV adjustment according to patient size. FINDINGS: No suspicious findings in the lung bases. The liver, spleen, and pancreas show no suspicious findings. Patient has a Susie's lobe configuratio n to the liver as a normal variant. Cholecystectomy clips are present. Biliary tree is dilated but no t outside of normal for a post cholecystectomy patient. Pattern is similar comparison. Symmetric renal function is seen with no hydronephrosis or suspicious renal mass. No pyelonephritis o r acute parenchymal process. No bladder abnormalities. No adrenal abnormalities. Uterus and ovaries s how no suspicious findings. No stomach or small bowel acute finding. The appendix is normal. Oral contrast has reached the spleni c flexure. Large stool volume distends but does not dilate a tortuous rectosigmoid colon. Very promin ent diverticulosis pattern seen without diverticulitis, mass or other acute finding to explain left l ower quadrant pain. No free air, free fluid or inflammatory stranding. No hernia, mass or bulky lymphadenopathy. No suspicious bony findings. IMPRESSION: Large amount of stool is present distending the tortuous rectosigmoid colon. Prominent d iverticulosis in the sigmoid colon without diverticulitis or mass. No acute findings seen, other than constipation, that would explain left lower quadrant pain. Nonacute findings detailed in the body of the report.
--- NOTE | 2019-09-20 16:04 | ER ---
Nurse's Notes [facility] Name: Yelitza Kellogg Age: 79 yrs Sex: Female : 1940 Arrival Date: 09/20/2019 Time: 11:31 Bed 24 Private MD: Alvraado Villanueva Diagnosis: Abdominal tenderness;Dementia in other diseases classified elsewhere;Urinary tract infection, site not specified;Constipation Presentation: 09/20 11:49 Presenting complaint: Patient states: LEFT lower abd pain and LEFT arm pain this AM, sr5 approx 1 hour [employer]. Equal unlabored resp, skin warm/dry/nc Denies V/D. Denies dizziness/CP/diaphoresis. 04/02, intermittent. Family reports pt does have memory issues and trouble putting thoughts together sometimes. Transition of care: patient was not received from another setting of care. Onset of symptoms was September 20, 2019 at 10:30. 11:49 Method Of Arrival: Ambulatory sr5 11:49 Acuity: ELIAS 2 sr5 13:33 Risk Assessment: Do you want to hurt yourself or someone else? Patient reports no mg2 desire to harm self or others. Initial Sepsis Screen: Does the patient meet any 2 criteria? No. Patient's initial sepsis screen is negative. Does the patient have a suspected source of infection? No. Patient's initial sepsis screen is negative. Care prior to arrival: None. Triage Assessment: 11:52 General: Appears in no apparent distress. Behavior is calm, cooperative. Pain: sr5 Complains of pain in abdomen and left arm Pain currently is 7 out of 10 on a pain scale. Quality of pain is described as. Neuro: Level of Consciousness is awake, alert, obeys commands. Cardiovascular: Patient's skin is warm and dry. Respiratory: Respiratory effort is even, unlabored, Respiratory pattern is regular, symmetrical. GI: Patient currently denies diarrhea, vomiting. Historical: - Allergies: 11:52 NKDA; sr5 - Home Meds: 13:34 a blood thinner [Active]; STOOL SOFTNER [Active]; mg2 - PMHx: 11:52 Alzheimers; Chronic pain; Dementia; Hypertension; sr5 - PSHx: 11:52 abdominal "sling"; Left foot; sr5 - Immunization history:: Flu vaccine is up to date. - Social history:: Smoking status: Patient/guardian denies using tobacco, never smoked. - Ebola Screening: : Patient negative for fever greater than or equal to 101.5 degrees Fahrenheit, and additional compatible Ebola Virus Disease symptoms. - Family history:: not pertinent. Screenin:14 Abuse screen: Denies threats or abuse. Denies injuries from another. Nutritional mg2 screening: No deficits noted. Tuberculosis screening: No symptoms or risk factors identified. Fall Risk IV access (20 points). Assessment: 12:16 General: Appears in no apparent distress. comfortable, Behavior is calm, cooperative. mg2 Pain: Pain: Denies pain. 13:30 Neuro: Level of Consciousness is awake, alert, obeys commands, Oriented to person, mg2 place, time, situation. Cardiovascular: Capillary refill < 3 seconds Patient's skin is warm and dry. Respiratory: Airway is patent Respiratory effort is even, unlabored. GI: Bowel sounds present X 4 quads. Abd is soft and non tender X 4 quads. Reports lower abdominal pain. 13:32 : Urine is clear. EENT: No signs and/or symptoms were reported regarding the EENT mg2 system. Derm: Skin is intact, is healthy with good turgor, Skin is pink, warm \\T\\ dry. normal. Musculoskeletal: Circulation, motion, and sensation intact. Capillary refill < 3 seconds. 14:38 Reassessment: Patient appears in no apparent distress at this time. Patient and/or mg2 family updated on plan of care and expected duration. Pain level reassessed. Patient is alert, oriented x 3, equal unlabored respirations, skin warm/dry/pink. 15:48 Reassessment: Patient appears in no apparent distress at this time. Patient and/or mg2 family updated on plan of care and expected duration. Pain level reassessed. Patient is alert, oriented x 3, equal unlabored respirations, skin warm/dry/pink. 16:36 Reassessment: Patient states feeling better. mg2 Vital Signs: 11:52 BP 117 / 83; Pulse 65; Resp 16; Temp 98.1; Pulse Ox 97% on R/A; Pain 7/10; sr5 13:45 BP 132 / 95; Pulse 65; Resp 18; Pulse Ox 99% on R/A; mg2 14:38 BP 147 / 75; Pulse 62; Resp 18; Pulse Ox 100% on R/A; mg2 15:47 BP 130 / 85; Pulse 65; Resp 18; Pulse Ox 100% on R/A; mg2 ED Course: 11:31 Patient arrived in ED. as 11:31 Alvarado Villanueva MD is Private Physician. as 11:36 Adelso De Los Santos MD is Attending Physician. casey 11:52 Triage completed. sr5 11:52 Arm band placed on. sr5 11:56 Luis Garrison, RN is Primary Nurse. mg2 12:16 No provider procedures requiring assistance completed. mg2 12:18 EKG done, by ED staff, reviewed by Adelso De Los Santos MD. jp3 12:20 Inserted saline lock: 20 gauge in left antecubital area, using aseptic technique. Blood mg2 collected. 12:35 XRAY Chest (1 view) In Process Unspecified. EDMS 13:33 Patient has correct armband on for positive identification. Pulse ox on. NIBP on. Door mg2 closed. Warm blanket given. 14:34 Repeat lab(s) drawn. by al, sent to lab. EKG done, by ED staff, reviewed by Adelso De Los Santos MD. 14:35 Troponin (emerg Dept Use Only) Sent. jp3 15:06 CT Abd/Pelvis - PO and IV Contrast In Process Unspecified. EDMS 15:19 Alexander Howard FNP-C is [facility]. la1 15:20 Assisted to bathroom. mg2 16:02 Alvarado Villanueva MD is Referral Physician. casey 16:02 Shandra Jaimes MD is Referral Physician. casey 16:03 Fransisco Mccurdy MD is Referral Physician. casey 16:36 IV discontinued, intact, bleeding controlled, No redness/swelling at site. Pressure mg2 dressing applied. Administered Medications: 12:50 Drug: NS 0.9% 1000 ml Route: IV; Rate: 1 bolus; Site: left antecubital; mg2 16:37 Follow up: Response: No adverse reaction; IV Status: Completed infusion; IV Intake: mg2 1000ml 13:58 Drug: Rocephin 1 grams Route: IV; Rate: per protocol; Site: left antecubital; mg2 16:37 Follow up: Response: No adverse reaction; IV Status: Completed infusion mg2 16:35 Drug: Lactulose 20 grams Volume: 30 ml; Route: PO; mg2 16:36 Follow up: Response: No adverse reaction; Medication administered at discharge. mg2 16:35 Drug: Dulcolax Suppository 10 mg Route: UT; mg2 16:35 Follow up: Response: No adverse reaction; Medication administered at discharge. mg2 Intake: 16:37 IV: 1000ml; Total: 1000ml. mg2 Outcome: 16:03 Discharge ordered by . casey 16:36 Discharged to home ambulatory, with family. mg2 16:36 Condition: good 16:36 Discharge instructions given to patient, family, Instructed on discharge instructions, follow up and referral plans. medication usage, Demonstrated understanding of instructions, follow-up care, medications, Prescriptions given X 4. 16:37 Patient left the ED. mg2 Signatures: Dispatcher [employer] EDMS Adelso De Los Santos MD MD cha Martinez, Amelia as Attema, Lee, LEVEL VIAL SEALER-C LEVEL VIAL SEALER-Cla1 Franklyn William RN RN sr5 Luis Garrison RN RN mg2 Gonzales Acevedo jp3 Corrections: (The following items were deleted from the chart) 13:32 12:16 Pain: mg2 mg2
--- NOTE | 2019-09-20 16:04 | EDPHYS ---
Physician Documentation [facility] Name: Yelitza Kellogg Age: 79 yrs Sex: Female : 1940 Arrival Date: 09/20/2019 Time: 11:31 Bed 24 Private MD: Alvarado Villanueva ED Physician Adelso De Los Santos HPI: 09/20 13:05 This 79 yrs old Female presents to ER via Ambulatory with complaints of casey Abdominal Pain. 13:05 The patient presents with abdominal pain in the upper abdomen, in the lower abdomen, casey abdominal distention in the lower abdomen. Onset: The symptoms/episode began/occurred just prior to arrival, this morning. The symptoms do not radiate. Associated signs and symptoms: none. The symptoms are described as dull. Modifying factors: The symptoms are alleviated by nothing, the symptoms are aggravated by nothing. Severity of pain: At its worst the pain was moderate in the emergency department the pain has resolved and did so just prior to arrival. The patient has experienced similar episodes in the past, a few times. Historical: - Allergies: 11:52 NKDA; sr5 - Home Meds: 13:34 a blood thinner [Active]; STOOL SOFTNER [Active]; mg2 - PMHx: 11:52 Alzheimers; Chronic pain; Dementia; Hypertension; sr5 - PSHx: 11:52 abdominal "sling"; Left foot; sr5 - Immunization history:: Flu vaccine is up to date. - Social history:: Smoking status: Patient/guardian denies using tobacco, never smoked. - Ebola Screening: : Patient negative for fever greater than or equal to 101.5 degrees Fahrenheit, and additional compatible Ebola Virus Disease symptoms. - Family history:: not pertinent. ROS: 13:05 Constitutional: Negative for fever, chills, and weight loss, Eyes: Negative for injury, casey pain, redness, and discharge, ENT: Negative for injury, pain, and discharge, Neck: Negative for injury, pain, and swelling, Cardiovascular: Negative for chest pain, palpitations, and edema, Respiratory: Negative for shortness of breath, cough, wheezing, and pleuritic chest pain, Back: Negative for injury and pain, : Negative for injury, bleeding, discharge, and swelling, MS/Extremity: Negative for injury and deformity, Skin: Negative for injury, rash, and discoloration, Neuro: Negative for headache, weakness, numbness, tingling, and seizure, Psych: Negative for depression, anxiety, suicide ideation, homicidal ideation, and hallucinations, Allergy/Immunology: Negative for hives, rash, and allergies, Endocrine: Negative for neck swelling, polydipsia, polyuria, polyphagia, and marked weight changes, Hematologic/Lymphatic: Negative for swollen nodes, abnormal bleeding, and unusual bruising. 13:05 Abdomen/GI: Positive for abdominal pain, of the right upper quadrant, left upper quadrant, right lower quadrant and left lower quadrant. Exam: 13:05 Constitutional: This is a well developed, well nourished patient who is awake, alert, casey and in no acute distress. Head/Face: Normocephalic, atraumatic. Eyes: Pupils equal round and reactive to light, extra-ocular motions intact. Lids and lashes normal. Conjunctiva and sclera are non-icteric and not injected. Cornea within normal limits. Periorbital areas with no swelling, redness, or edema. ENT: Nares patent. No nasal discharge, no septal abnormalities noted. Tympanic membranes are normal and external auditory canals are clear. Oropharynx with no redness, swelling, or masses, exudates, or evidence of obstruction, uvula midline. Mucous membranes moist. Neck: Trachea midline, no thyromegaly or masses palpated, and no cervical lymphadenopathy. Supple, full range of motion without nuchal rigidity, or vertebral point tenderness. No Meningismus. Chest/axilla: Normal chest wall appearance and motion. Nontender with no deformity. No lesions are appreciated. Cardiovascular: Regular rate and rhythm with a normal S1 and S2. No gallops, murmurs, or rubs. Normal PMI, no JVD. No pulse deficits. Respiratory: Lungs have equal breath sounds bilaterally, clear to auscultation and percussion. No rales, rhonchi or wheezes noted. No increased work of breathing, no retractions or nasal flaring. Abdomen/GI: Soft, non-tender, with normal bowel sounds. No distension or tympany. No guarding or rebound. No evidence of tenderness throughout. Back: No spinal tenderness. No costovertebral tenderness. Full range of motion. Female : Normal external genitalia. Skin: Warm, dry with normal turgor. Normal color with no rashes, no lesions, and no evidence of cellulitis. MS/ Extremity: Pulses equal, no cyanosis. Neurovascular intact. Full, normal range of motion. Neuro: Awake and alert, GCS 15, oriented to person, place, time, and situation. Cranial nerves II-XII grossly intact. Motor strength 5/5 in all extremities. Sensory grossly intact. Cerebellar exam normal. Normal gait. Psych: Awake, alert, with orientation to person, place and time. Behavior, mood, and affect are within normal limits. 13:07 Musculoskeletal/extremity: DVT Exam: No signs of deep vein thrombosis. no pain, no casey swelling, no tenderness, negative Homans' sign noted on exam, no appreciated bluish discoloration, no erythema, no increased warmth. Vital Signs: 11:52 BP 117 / 83; Pulse 65; Resp 16; Temp 98.1; Pulse Ox 97% on R/A; Pain 7/10; sr5 13:45 BP 132 / 95; Pulse 65; Resp 18; Pulse Ox 99% on R/A; mg2 14:38 BP 147 / 75; Pulse 62; Resp 18; Pulse Ox 100% on R/A; mg2 15:47 BP 130 / 85; Pulse 65; Resp 18; Pulse Ox 100% on R/A; mg2 MDM: 12:01 Patient medically screened. [facility] 13:08 Data reviewed: vital signs, nurses notes, lab test result(s), EKG, radiologic studies, [facility] CT scan, plain films. 09/20 12:07 Order name: Basic Metabolic Panel; Complete Time: 13:37 mg2 09/20 12:07 Order name: CBC with Diff; Complete Time: 13:37 mg2 09/20 12:07 Order name: LFT's; Complete Time: 13:37 mg2 09/20 12:07 Order name: Magnesium; Complete Time: 13:37 mg2 09/20 12:07 Order name: NT PRO-BNP; Complete Time: 13:37 mg2 09/20 12:07 Order name: PT-INR; Complete Time: 13:37 mg2 09/20 12:07 Order name: Troponin (emerg Dept Use Only); Complete Time: 13:37 mg2 09/20 12:07 Order name: XRAY Chest (1 view); Complete Time: 13:37 mg2 09/20 12:14 Order name: Lipase; Complete Time: 13:37 [facility] 09/20 12:14 Order name: Urine Culture [facility] 09/20 12:14 Order name: CT Abd/Pelvis - PO and IV Contrast; Complete Time: 16:00 [facility] 09/20 12:28 Order name: Urine Dipstick--Ancillary (enter results); Complete Time: 15:13 09/20 13:50 Order name: Troponin (emerg Dept Use Only); Complete Time: 15:13 [facility] 09/20 12:07 Order name: EKG; Complete Time: 12:08 [facility] 09/20 12:07 Order name: Cardiac monitoring; Complete Time: 12:12 [facility] 09/20 12:07 Order name: EKG - Nurse/Tech; Complete Time: 12:12 [facility] 09/20 12:07 Order name: IV Saline Lock; Complete Time: 13:09 [facility] 09/20 12:07 Order name: Labs collected and sent; Complete Time: 13:09 [facility] 09/20 12:07 Order name: O2 Per Protocol; Complete Time: 13:09 [facility] 09/20 12:07 Order name: O2 Sat Monitoring; Complete Time: 13:09 [facility] 09/20 12:14 Order name: Urine Dipstick-Ancillary (obtain specimen); Complete Time: 13:09 [facility] 09/20 13:50 Order name: EKG; Complete Time: 13:50 [facility] 09/20 13:50 Order name: EKG - Nurse/Tech; Complete Time: 14:25 [facility] Administered Medications: 12:50 Drug: NS 0.9% 1000 ml Route: IV; Rate: 1 bolus; Site: left antecubital; mg2 16:37 Follow up: Response: No adverse reaction; IV Status: Completed infusion; IV Intake: mg2 1000ml 13:58 Drug: Rocephin 1 grams Route: IV; Rate: per protocol; Site: left antecubital; mg2 16:37 Follow up: Response: No adverse reaction; IV Status: Completed infusion mg2 16:35 Drug: Lactulose 20 grams Volume: 30 ml; Route: PO; mg2 16:36 Follow up: Response: No adverse reaction; Medication administered at discharge. mg2 16:35 Drug: Dulcolax Suppository 10 mg Route: [place]; mg2 16:35 Follow up: Response: No adverse reaction; Medication administered at discharge. mg2 Disposition: 09/20/19 16:03 Discharged to Home. Impression: Abdominal tenderness, Dementia in other diseases classified elsewhere, Urinary tract infection, site not specified, Constipation. - Condition is Stable. - Discharge Instructions: Abdominal Pain, Adult, Constipation, Adult, Urinary Tract Infection, Adult, Constipation, Adult, [id number], Urinary Tract Infection, Adult, [id number], Abdominal Pain, Adult, [id number]. - Prescriptions for Bentyl 20 mg Oral Tablet - take 1 tablet by ORAL route every 6 hours As needed; 20 tablet. Miralax 17 gram/dose Oral - take 1 packet by ORAL route once daily dilute powder in 8 ounces of water or juice; 14 packet. Macrobid 100 mg Oral Capsule - take 1 capsule by ORAL route every 12 hours for 7 days; 14 capsule. Lactulose 10 gram/15 mL Oral Solution - take 20 milliliter by ORAL route once daily; 200 milliliter. - Medication Reconciliation Form, Thank You Letter, Antibiotic Education, Prescription Opioid Use form. - Follow up: Alvarado Villanueva; When: 2 - 3 days; Reason: Recheck today's complaints, Continuance of care, Re-evaluation by your physician. Follow up: Shandra Jaimes; When: 2 - 3 days; Reason: Recheck today's complaints, Re-evaluation by your physician. Follow up: Fransisco Mccurdy MD; When: 2 - 3 days; Reason: Recheck today's complaints, Re-evaluation by your physician. - Problem is new. - Symptoms have improved. Signatures: Dispatcher [employer] Adelso Schaefer MD MD cha Resecker, Sam RN RN sr5 Luis Garrison RN RN mg2 Corrections: (The following items were deleted from the chart) 16:37 16:03 09/20/2019 16:03 Discharged to Home. Impression: Abdominal tenderness; Dementia mg2 in other diseases classified elsewhere; Urinary tract infection, site not specified; Constipation. Condition is Stable. Discharge Instructions: Abdominal Pain, Adult, Abdominal Pain, Adult, [id number], Urinary Tract Infection, Adult, Urinary Tract Infection, Adult, [id number]. Prescriptions for Bentyl 20 mg Oral Tablet - take 1 tablet by ORAL route every 6 hours As needed; 20 tablet, Pepcid 20 mg Oral Tablet - take 1 tablet by ORAL route every 12 hours for 10 days; 20 tablet, Zofran 4 mg Oral Tablet - take 1 tablet by ORAL route every 12 hours As needed; 20 tablet, Miralax 17 gram/dose Oral - take 1 packet by ORAL route once daily dilute powder in 8 ounces of water or juice; 14 packet, Macrobid 100 mg Oral Capsule - take 1 capsule by ORAL route every 12 hours for 7 days; 14 capsule. and Forms are Medication Reconciliation Form, Thank You Letter, Antibiotic Education, Prescription Opioid Use. Follow up: Alvarado Villanueva; When: 2 - 3 days; Reason: Recheck today's complaints, Continuance of care, Re-evaluation by your physician. Follow up: Shandra Jaimes; When: 2 - 3 days; Reason: Recheck today's complaints, Re-evaluation by your physician. Follow up: Fransisco Mccurdy; When: 2 - 3 days; Reason: Recheck today's complaints, Re-evaluation by your physician. Problem is new. Symptoms have improved. casey
[2019-09-20] MEDS ORDERED: BISACODYL 10 MG RECTAL SUPP ONE (16:23)
[2019-09-20] MEDS ORDERED: LACTULOSE 20 GM/30 ML UCUP ONE (16:23)
[2019-09-20 16:55] VITALS: TEMP 98.1
[2019-09-20 16:57] VITALS: O2SAT 100
[2019-09-20 16:59] VITALS: BP 130/85
--- NOTE | 2019-09-21 11:45 | EKG ---
Test Date: 2019-09-20 Test Time: 12:08:36 Clay Caster: SAAD MEASUREMENT RESULTS: Intervals: Rate: 58 LA: 164 QRSD: 86 QT: 416 QTc: 408 [place]: P: 76 LA: 164 QRS: 67 T: -29 INTERPRETIVE STATEMENTS: Sinus bradycardia T wave abnormality, consider inferolateral ischemia Abnormal ECG Compared to ECG 06/14/2019 06:24:24 T-wave abnormality now present Possible ischemia now present Sinus rhythm no longer present Myocardial infarct finding no longer present Electronically Signed On 09-21-19 11:42:13 SECOND CRUSHER by Fransisco Mccurdy
--- NOTE | 2019-09-21 11:45 | EKG ---
Test Date: 2019-09-20 Test Time: 14:28:26 Generator Man: SAAD MEASUREMENT RESULTS: Intervals: Rate: 68 NJ: 178 QRSD: 88 QT: 416 QTc: 442 [place]: P: 77 NJ: 178 QRS: 66 T: -46 INTERPRETIVE STATEMENTS: Normal sinus rhythm T wave abnormality, consider inferolateral ischemia Abnormal ECG Compared to ECG 09/20/2019 12:08:36 Sinus bradycardia no longer present T-wave abnormality still present Possible ischemia still present Electronically Signed On 09-21-19 11:42:08 ARTICULATION OFFICER by Fransisco Mccurdy
== END 2019-09-20 16:37 | disposition home or self-care (01) ==
LOC: ER 11:30
DX: N39.0 Urinary tract infection, site not specified (principal); K59.00 Constipation, unspecified; I10 Essential (primary) hypertension; G30.9 Alzheimer's disease, unspecified; F02.80 Dementia in other diseases classified elsewhere, unspecified severity, without behavioral disturbance, psychotic disturbance, mood disturbance, and anxiety; Z79.01 Long term (current) use of anticoagulants
CPT/HCPCS: 96365; 96361; 93005 ×2; 87088; 85025; 80048; 36415; 83735; 85610; 80076; 81003; 84484 ×2; 83690; 83880; 74177; 71045; 99284; 96366; Q9967; J0696; J7030; 87086

== ENCOUNTER 2019-10-02 11:28 | Emergency (ER) | payer OTHER ==
[2019-10-02 12:20] LABS: Absolute Lymphocytes (CBC) 1.5 K/uL (0.7-4.9); Basophils % 0.9 % (0-1.3); Hematocrit 39.7 % (36.0-45.0); MPV 7.6 fL (7.6-11.3)
[2019-10-02 12:26] LABS: Protime INR 1.01
--- NOTE | 2019-10-02 12:28 | RAD REPORT ---
EXAM DESCRIPTION: RAD - Chest Single View - 10/02/2019 12:10 pm CLINICAL HISTORY: CHEST PAIN Chest pain. COMPARISON: Chest Single View dated 09/20/2019; Chest Single View dated 06/14/2019; Chest Single View dated 05/17/2019; Chest Single View dated 05/16/2019 FINDINGS: Portable technique limits examination quality. The lungs are mildly emphysematous but grossly clear. The heart is upper limit normal in size. No dis placed fractures. IMPRESSION: Mild COPD.
[2019-10-02 12:40] LABS: ALT/SGPT 23 U/L (12-78); AST/SGOT 21 U/L (15-37); Albumin 3.9 g/dL (3.4-5.0); Alkaline Phosphatase 95 U/L (45-117); BUN Blood Urea Nitrogen 13 mg/dL (7-18); Bicarbonate 30 mmol/L (21-32); Bilirubin Direct 0.1 mg/dL (0-0.2); Bilirubin Total 0.3 mg/dL (0.2-1.0); Glucose Level 79 mg/dL (74-106); NT PRO-BNP 316 pg/mL (<450); Potassium 4.2 mmol/L (3.5-5.1); Protein, Total 7.6 g/dL (6.4-8.2); Sodium Level 143 mmol/L (136-145); Troponin (Emerg Dept Use Only) < 0.02 ng/mL (0.0-0.045)
--- NOTE | 2019-10-02 13:09 | ER ---
Nurse's Notes [facility] Name: Yelitza Kellogg Age: 79 yrs Sex: Female : 1940 Arrival Date: 10/02/2019 Time: 11:29 Bed 6 Private MD: Alvarado Villanueva Diagnosis: Chest pain, unspecified Presentation: 10/02 11:32 Presenting complaint: Patient states: midsternal chest pain radiating to left hand, has sg been going on for a while. Transition of care: patient was not received from another setting of care. Onset of symptoms was October 02, 2019. Risk Assessment: Do you want to hurt yourself or someone else? Patient reports no desire to harm self or others. Initial Sepsis Screen: Does the patient meet any 2 criteria? No. Patient's initial sepsis screen is negative. Does the patient have a suspected source of infection? No. Patient's initial sepsis screen is negative. Care prior to arrival: None. 11:32 Method Of Arrival: Wheelchair 11:32 Acuity: ELIAS 3 sg Historical: - Allergies: 11:33 NKDA; sg - PMHx: 11:33 Alzheimers; Chronic pain; Dementia; Hypertension; sg - PSHx: 11:33 abdominal "sling"; Left foot; sg - Immunization history:: Adult Immunizations. - Social history:: Smoking status: Patient/guardian denies using tobacco. - Ebola Screening: : Patient negative for fever greater than or equal to 101.5 degrees Fahrenheit, and additional compatible Ebola Virus Disease symptoms Patient denies exposure to infectious person Patient denies travel to an Ebola-affected area in the 21 days before illness onset No symptoms or risks identified at this time. Screenin:15 Abuse screen: Denies threats or abuse. Denies injuries from another. Nutritional jl7 screening: No deficits noted. Tuberculosis screening: No symptoms or risk factors identified. Fall Risk Secondary diagnosis (15 points) Alzheimer's, IV access (20 points). Total Jarvis Fall Scale indicates Low Risk Score (25-44 pts). Fall prevention measures have been instituted. Side Rails Up X 2 Placed close to Nursing Station Frequent Obs/Assesments occuring Family Present and informed to notify staff if they need to leave bedside As available Patient and Family Educated on Fall Prevention Program and strategies. Assessment: 11:40 General: Appears in no apparent distress. uncomfortable, Behavior is calm, cooperative, jl7 appropriate for age. Pain: Denies pain. Complains of pain in reports chest pain, "She doesn't normally complain." Pain does not radiate. Pain began 2-3 days ago. Neuro: Level of Consciousness is awake, alert, obeys commands, Oriented to person. Cardiovascular: Heart tones S1 S2 present Patient's skin is warm and dry. Respiratory: Airway is patent Respiratory effort is even, unlabored, Respiratory pattern is regular, symmetrical. Derm: Skin is pink, warm \\T\\ dry. 13:00 Reassessment: Patient appears in no apparent distress at this time. No changes from jl7 previously documented assessment. Patient and/or family updated on plan of care and expected duration. Pain level reassessed. Vital Signs: 11:33 BP 135 / 81; Pulse 87; Resp 16 S; Temp 97.6; Pulse Ox 98% on R/A; Weight 59.87 kg; sg Height 5 ft. 5 in. (165.10 cm); 12:15 BP 133 / 78; Pulse 60; Resp 16 S; Pulse Ox 99% on R/A; jl7 13:00 BP 142 / 82; Pulse 68; Resp 16 S; Pulse Ox 97% on R/A; jl7 11:33 Body Mass Index 21.97 (59.87 kg, 165.10 cm) ED Course: 11:29 Patient arrived in ED. mr 11:29 Alvarado Villanueva MD is Private Physician. mr 11:33 Triage completed. sg 11:35 Arm band placed on. sg 11:37 Chadd Kent PA is PHCP. jr8 11:37 Adelso De Los Santos MD is Attending Physician. jr8 11:39 Cherie Urbina RN is Primary Nurse. jl7 12:10 XRAY Chest (1 view) In Process Unspecified. EDMS 12:15 Patient has correct armband on for positive identification. Placed in gown. Bed in low jl7 position. Call light in reach. Side rails up X 1. Adult w/ patient. monitor technician on. Pulse ox on. NIBP on. Warm blanket given. 12:15 Initial lab(s) drawn, by me, sent to lab. Inserted saline lock: 20 gauge in left jl7 antecubital area, using aseptic technique. Blood collected. Patient maintains SpO2 saturation greater than 95% on room air. 13:08 Fransisco Mccurdy MD is Referral Physician. jr8 13:27 No provider procedures requiring assistance completed. IV discontinued, intact, jl7 bleeding controlled, No redness/swelling at site. Pressure dressing applied. Administered Medications: No medications were administered Outcome: 13:08 Discharge ordered by MD. jrYris 13:27 Discharged to home ambulatory, with family. jl7 13:27 Condition: stable 13:27 Discharge instructions given to patient, family, Instructed on discharge instructions, follow up and referral plans. Demonstrated understanding of instructions, follow-up care. 13:28 Patient left the ED. jl7 Signatures: Dispatcher [employer] EDMS Bart Gonzalez RN RN larry NavaFay mr Chadd Kent, PA PA jrCherie Duggan RN RN jl7 Corrections: (The following items were deleted from the chart) 11:35 11:32 Presenting complaint: Patient states: midsternal chest pain today sg sg 11:35 11:33 BP 135 / 81; Pulse 87bpm; Resp 16bpm; Spontaneous; Pulse Ox 98% RA; Temp 97.6F; sgsg
--- NOTE | 2019-10-02 13:09 | EDPHYS ---
Physician Documentation [facility] Name: Yelitza Kellogg Age: 79 yrs Sex: Female : 1940 Arrival Date: 10/02/2019 Time: 11:29 Bed 6 Private MD: Alvarado Villanueva ED Physician Adelso De Los Santos HPI: 10/02 11:51 This 79 yrs old Female presents to ER via Wheelchair with complaints of Chest jr8 Pain. 11:51 The patient or guardian reports chest pain that is located primarily in the substernal jr8 area. Onset: gradually, 3 week(s) ago. The pain radiates to the left arm. Associated signs and symptoms: The patient has no apparent associated signs or symptoms. The chest pain is described as dull. Duration: The patient or guardian reports multiple episodes, that are intermittent, that wax and wane. Modifying factors: The symptoms are alleviated by nothing. the symptoms are aggravated by nothing. Severity of pain: At its worst the pain was moderate in the emergency department the pain has resolved. The patient has experienced a previous episode. The patient has not recently seen a physician. 11:51 Patient with history of Alzheimers. stated that she never complains. Started to [facility] complain about chest pain a few weeks ago. Still present. Has been seen once before for this and without acute findings. Has not seen legal examiner on an out patient basis as of yet . Historical: - Allergies: 11:33 NKDA; sg - PMHx: 11:33 Alzheimers; Chronic pain; Dementia; Hypertension; sg - PSHx: 11:33 abdominal "sling"; Left foot; sg - Immunization history:: Adult Immunizations. - Social history:: Smoking status: Patient/guardian denies using tobacco. - Ebola Screening: : Patient negative for fever greater than or equal to 101.5 degrees Fahrenheit, and additional compatible Ebola Virus Disease symptoms Patient denies exposure to infectious person Patient denies travel to an Ebola-affected area in the 21 days before illness onset No symptoms or risks identified at this time. ROS: 11:51 Eyes: Negative for injury, pain, redness, and discharge, ENT: Negative for injury, jr8 pain, and discharge, Neck: Negative for injury, pain, and swelling, Respiratory: Negative for shortness of breath, cough, wheezing, and pleuritic chest pain, Abdomen/GI: Negative for abdominal pain, nausea, vomiting, diarrhea, and constipation, Back: Negative for injury and pain, MS/Extremity: Negative for injury and deformity, Skin: Negative for injury, rash, and discoloration, Neuro: Negative for headache, weakness, numbness, tingling, and seizure. 11:51 Cardiovascular: Positive for chest pain. Exam: 11:51 Eyes: Pupils equal round and reactive to light, extra-ocular motions intact. Lids and jr8 lashes normal. Conjunctiva and sclera are non-icteric and not injected. Cornea within normal limits. Periorbital areas with no swelling, redness, or edema. ENT: Nares patent. No nasal discharge, no septal abnormalities noted. Tympanic membranes are normal and external auditory canals are clear. Oropharynx with no redness, swelling, or masses, exudates, or evidence of obstruction, uvula midline. Mucous membranes moist. Neck: Trachea midline, no thyromegaly or masses palpated, and no cervical lymphadenopathy. Supple, full range of motion without nuchal rigidity, or vertebral point tenderness. No Meningismus. Chest/axilla: Normal chest wall appearance and motion. Nontender with no deformity. No lesions are appreciated. Cardiovascular: Regular rate and rhythm with a normal S1 and S2. No gallops, murmurs, or rubs. Normal PMI, no JVD. No pulse deficits. Respiratory: Lungs have equal breath sounds bilaterally, clear to auscultation and percussion. No rales, rhonchi or wheezes noted. No increased work of breathing, no retractions or nasal flaring. Abdomen/GI: Soft, non-tender, with normal bowel sounds. No distension or tympany. No guarding or rebound. No evidence of tenderness throughout. Back: No spinal tenderness. No costovertebral tenderness. Full range of motion. Skin: Warm, dry with normal turgor. Normal color with no rashes, no lesions, and no evidence of cellulitis. MS/ Extremity: Pulses equal, no cyanosis. Neurovascular intact. Full, normal range of motion. Neuro: Awake and alert, GCS 14, oriented to person, time. Cranial nerves II-XII grossly intact. Motor strength 5/5 in all extremities. Sensory grossly intact. Cerebellar exam normal. Normal gait. 13:06 ECG was reviewed by the Attending Physician. [facility] Vital Signs: 11:33 BP 135 / 81; Pulse 87; Resp 16 S; Temp 97.6; Pulse Ox 98% on R/A; Weight 59.87 kg; sg Height 5 ft. 5 in. (165.10 cm); 12:15 BP 133 / 78; Pulse 60; Resp 16 S; Pulse Ox 99% on R/A; jl7 13:00 BP 142 / 82; Pulse 68; Resp 16 S; Pulse Ox 97% on R/A; jl7 11:33 Body Mass Index 21.97 (59.87 kg, 165.10 cm) sg MDM: 11:37 Patient medically screened. [facility] 13:05 Data reviewed: vital signs, nurses notes, lab test result(s), EKG, radiologic studies, jr8 plain films. Data interpreted: Pulse oximetry: on room air is 99 %. Interpretation: normal. Counseling: I had a detailed discussion with the patient and/or guardian regarding: the historical points, exam findings, and any diagnostic results supporting the discharge/admit diagnosis, lab results, radiology results, the need for outpatient follow up, a legal examiner, to return to the emergency department if symptoms worsen or persist or if there are any questions or concerns that arise at home. ED course: Patient currently without pain. No acute findings on labs, CXR, or ECG. Will d/c home to f/u with cariology in next couple of days. To come back if something were to change or worsen with chest pain. Family and patient good with this and will f/u with cardiology . 10/02 11:37 Order name: Basic Metabolic Panel; Complete Time: 12:42 10/02 11:37 Order name: CBC with Diff; Complete Time: 12:42 10/02 11:37 Order name: LFT's; Complete Time: 12:42 10/02 11:37 Order name: Magnesium; Complete Time: 12:42 10/02 11:37 Order name: NT PRO-BNP; Complete Time: 12:42 10/02 11:37 Order name: PT-INR; Complete Time: 12:42 10/02 11:37 Order name: Troponin (emerg Dept Use Only); Complete Time: 12:42 10/02 11:37 Order name: XRAY Chest (1 view); Complete Time: 12:42 10/02 11:37 Order name: EKG; Complete Time: 11:38 10/02 11:37 Order name: Cardiac monitoring; Complete Time: 11:51 10/02 11:37 Order name: EKG - Nurse/Tech; Complete Time: 11:51 10/02 11:37 Order name: IV Saline Lock; Complete Time: 11:51 10/02 11:37 Order name: Labs collected and sent; Complete Time: 12:54 10/02 11:37 Order name: O2 Per Protocol; Complete Time: 11:51 10/02 11:37 Order name: O2 Sat Monitoring; Complete Time: 11:50 EC:06 Rate is 66 beats/min. Rhythm is regular, Normal Sinus Rhythm. QRS [place] is Normal. DE jr8 interval is normal at 148 msec. QRS interval is normal at 82 msec. QT interval is normal at 381 msec. No Q waves. T waves are Inverted in leads III, aVF. No ST changes noted. Clinical impression: NSR w/ Non-specific ST/T Changes. Interpreted by me. Reviewed by me. Administered Medications: No medications were administered Disposition: 16:41 Co-signature as Attending Physician, Adelso De Los Santos MD I agree with the assessment and [facility] plan of care. PA/DRUPAL ARCHITECT's history reviewed, patient interviewed, and examined. Disposition: 10/02/19 13:08 Discharged to Home. Impression: Chest pain, unspecified. - Condition is Stable. - Discharge Instructions: Nonspecific Chest Pain. - Medication Reconciliation Form, Thank You Letter, Antibiotic Education, Prescription Opioid Use form. - Follow up: Fransisco Mccurdy MD; When: 1 - 2 days; Reason: Recheck today's complaints, Continuance of care, Re-evaluation by your physician. - Problem is new. - Symptoms are resolved. Signatures: Dispatcher [employer] Bart Neri, Adelso Villalobos RN, MD MD cha Roszak, Josh, SANDRO JO jr8 Cherie Urbina RN RN jl7 Corrections: (The following items were deleted from the chart) 13:28 13:08 10/02/2019 13:08 Discharged to Home. Impression: Chest pain, unspecified. jl7 Condition is Stable. Forms are Medication Reconciliation Form, Thank You Letter, Antibiotic Education, Prescription Opioid Use. Follow up: Fransisco Mccurdy; When: 1 - 2 days; Reason: Recheck today's complaints, Continuance of care, Re-evaluation by your physician. Problem is new. Symptoms are resolved. jr8
--- NOTE | 2019-10-02 13:21 | EKG ---
Test Date: 2019-10-02 Test Time: 11:46:42 Asphalt Paving Superintendent: RAFY MEASUREMENT RESULTS: Intervals: Rate: 66 MN: 148 QRSD: 82 QT: 364 QTc: 381 [place]: P: 76 MN: 148 QRS: 73 T: 8 INTERPRETIVE STATEMENTS: Normal sinus rhythm T wave abnormality, consider inferior ischemia Abnormal ECG Compared to ECG 09/20/2019 14:28:26 No significant changes Electronically Signed On 10-02-19 13:20:46 PAPERHANGER ASSISTANT by Fransisco Mccurdy
[2019-10-02 13:34] VITALS: TEMP 97.6
[2019-10-02 13:37] VITALS: BP 142/82; O2SAT 97
== END 2019-10-02 13:28 | disposition home or self-care (01) ==
LOC: ER 11:28
DX: R07.9 Chest pain, unspecified (principal); I10 Essential (primary) hypertension; G30.9 Alzheimer's disease, unspecified; F02.80 Dementia in other diseases classified elsewhere, unspecified severity, without behavioral disturbance, psychotic disturbance, mood disturbance, and anxiety
CPT/HCPCS: 36415; 71045; 80048; 80076; 83735; 83880; 84484; 85025; 85610; 93005; 99285

== ENCOUNTER 2019-12-08 05:34 | Emergency (ER) | payer OTHER ==
[2019-12-08 06:36] LABS: Absolute Lymphocytes (CBC) 1.8 K/uL (0.7-4.9); Basophils % 0.8 % (0-1.3); Hematocrit 38.2 % (36.0-45.0); Lymphocytes % 33.7 % (15.3-44.8); MPV 7.4 fL (7.6-11.3); RBC Red Blood Cell Count 4.35 M/uL (3.86-4.86)
[2019-12-08 06:57] LABS: Albumin 3.4 g/dL (3.4-5.0); Bilirubin Direct 0.1 mg/dL (0-0.2); Bilirubin Total 0.5 mg/dL (0.2-1.0); Potassium 3.5 mmol/L (3.5-5.1); Protein, Total 7.4 g/dL (6.4-8.2)
[2019-12-08 07:04] LABS: Urine Blood TRACE (NEG); Urine Glucose NEGATIVE (NEG); Urine Protein NEGATIVE (NEG)
[2019-12-08 07:30] LABS: Urine Bacteria <20 /HPF (<20); Urine Culture Reflex Order REFLEXED; Urine RBC <5 /HPF (NONE SEEN); Urine Urothelial Cells <5 /HPF (NONE SEEN)
--- NOTE | 2019-12-08 08:25 | RAD REPORT ---
EXAM DESCRIPTION: CT - Stone Protocol - 12/08/2019 7:38 am CLINICAL HISTORY: Flank pain. back pain COMPARISON: Abdomen Pelvis W Contrast dated 09/20/2019 TECHNIQUE: Axial images were obtained without oral or IV contrast. Lack of contrast limits solid org an and vascular assessment. The [id number] spans the entirety of the system partially obscuring uppermost abdomen and lung bases. Coronal reformatted images were obtained and reviewed. All CT scans are performed using dose optimization technique as appropriate and may include automated exposure control or mA/KV adjustment according to patient size. FINDINGS: The lower lung oliveira are clear. Cholecystectomy clips. Imaged portions of the liver and spleen show no suspicious findings on non-contrast imaging. The panc reas and adrenal glands are normal. No pathologic lymphadenopathy in the abdomen or pelvis. No urinary tract stones or obstructive uropathy. No bowel obstruction, free air, free fluid or abscess. Normal appendix noted.There is significant sto ol throughout the colon with sigmoid diverticulosis present. Prominent degenerative levoscoliosis. IMPRESSION: No urinary tract stones or obstructive uropathy. Marked sigmoid diverticulosis coli is present with fecal retention throughout the colon evident.
[2019-12-08] MEDS ORDERED: KETOROLAC 30 MG/ML INJ ONE (08:37)
[2019-12-08] MEDS ORDERED: TRAMADOL HCL 50 MG TAB ONE (08:38)
--- NOTE | 2019-12-08 09:07 | ER ---
Nurse's Notes [facility] Name: Yelitza Kellogg Age: 79 yrs Sex: Female : 1940 Arrival Date: 12/08/2019 Time: 05:35 Bed 4 Private MD: Diagnosis: Low back pain Presentation: 12/07 05:47 Chief complaint: EMS states: complaining of severe back pain going to her legs started rr5 3 days ago. denies trauma. Coronavirus screen: The patient has NOT traveled to a country currently being monitored by the [facility] within the last 14 days. Proceed with normal triage procedures. Ebola Screen: Patient negative for fever greater than or equal to 101.5 degrees Fahrenheit, and additional compatible Ebola Virus Disease symptoms Patient denies exposure to infectious person. Patient denies travel to an Ebola-affected area in the 21 days before illness onset. Initial Sepsis Screen: Does the patient meet any 2 criteria? No. Patient's initial sepsis screen is negative. Does the patient have a suspected source of infection? No. Patient's initial sepsis screen is negative. Risk Assessment: Do you want to hurt yourself or someone else? Patient reports no desire to harm self or others. Note usually after taking Tylenol she feels relieved but not at this time. patient is non ambulatory, history of dementia and Alzheimer's. when we got into their house patient is in a lot of pain, after we positioned her to the stretcher she did not complaint of pain. Onset of symptoms was December 05, 2019. 05:47 Method Of Arrival: EMS: [facility] rr5 05:47 Acuity: ELIAS 3 rr5 Triage Assessment: 07:00 General: Appears in no apparent distress. comfortable, Behavior is calm, cooperative. bp Pain: Complains of pain in back. EENT: No deficits noted. Neuro: Level of Consciousness is awake, alert, obeys commands, confused, Oriented to AT BASELINE, H/O DEMENTIA. Cardiovascular: No deficits noted. Respiratory: No deficits noted. GI: No signs and/or symptoms were reported involving the gastrointestinal system. : No signs and/or symptoms were reported regarding the genitourinary system. Derm: No deficits noted. Musculoskeletal: No deficits noted. Circulation, motion, and sensation intact. Range of motion: intact in all extremities. Historical: - Allergies: 05:51 NKDA; rr5 - Home Meds: 05:51 a blood thinner [Active]; STOOL SOFTNER [Active]; rr5 - PMHx: 05:51 Alzheimers; Chronic pain; Dementia; Hypertension; rr5 - PSHx: 05:51 None; rr5 - Immunization history:: Adult Immunizations up to date. - Social history:: Smoking status: unknown. Screenin:51 Abuse screen: Denies threats or abuse. Denies injuries from another. Nutritional rr5 screening: No deficits noted. Tuberculosis screening: No symptoms or risk factors identified. Fall Risk Secondary diagnosis (15 points) impaired mobility, Gait- Impaired (20 pts.). Mental Status- Overestimates/Forgets Limitations (15 pts.). Total Jarvis Fall Scale indicates High Risk Score (45 or more points). Fall prevention measures have been instituted. Side Rails Up X 2 Placed Close to Nursing Station Frequent Obs/Assessments Occuring Family Present and informed to notify staff if the need to leave the bedside As available patient and family educated on Fall Prevention Program and Strategies. Assessment: 05:52 General: Appears in no apparent distress. comfortable, Behavior is calm, cooperative, rr5 appropriate for age. Pain: Denies pain. Neuro: Level of Consciousness is awake, alert, obeys commands, Oriented to person, history of dementia and alzheimers. Cardiovascular: Capillary refill < 3 seconds Patient's skin is warm and dry. Respiratory: Airway is patent Respiratory effort is even, unlabored, Respiratory pattern is regular, symmetrical. GI: No signs and/or symptoms were reported involving the gastrointestinal system. : No signs and/or symptoms were reported regarding the genitourinary system. EENT: No signs and/or symptoms were reported regarding the EENT system. Derm: Skin is fragile, is thin, Skin temperature is warm. Musculoskeletal: Capillary refill < 3 seconds, Reports pain in back Parent/caregiver report the patient having denies trauma. 06:50 Reassessment: Patient appears in no apparent distress at this time. able to pee in rr5 bedpan, after care done bed linen changed. awaiting for review. no complaints made. 07:00 Reassessment: RECD REPORT FROM TAM DELGADO. 79YO WF P/W ATRAUMATIC BACK PAIN. RESULTS bp PENDING. 08:00 Reassessment: PT RETURNED FROM CT, ALL CURRENT ORDERS COMPLETED, RESULTS PENDING. bp 08:57 Reassessment: Up to BS with assistance. hb 09:31 Reassessment: PT D/C HOME VIA W/C WITH FAMILY, MENTATION AND MOBILITY AT BASELINE. bp Vital Signs: 05:47 BP 174 / 81; Pulse 60; Resp 16; Temp 98.6; Pulse Ox 98% ; rr5 06:58 BP 153 / 85; Pulse 57; Resp 16; Pulse Ox 99% on R/A; rr5 08:07 BP 154 / 79; Pulse 61; Resp 16; Pulse Ox 95% ; bp 09:31 BP 156 / 89; Pulse 74; Resp 16; Temp 98.5; Pulse Ox 99% ; bp ED Course: 05:35 Patient arrived in ED. cl3 05:47 Tam Spann RN is Primary Nurse. rr5 05:51 Triage completed. rr5 05:51 Arm band placed on left wrist. rr5 05:52 Patient has correct armband on for positive identification. Bed in low position. Call rr5 light in reach. Side rails up X2. Pulse ox on. NIBP on. 06:09 Adelso Aguilar PA is PHCP. cp 06:09 Ward Dean MD is Attending Physician. cp 06:20 Inserted saline lock: 20 gauge in left antecubital area, using aseptic technique. Blood rr5 collected. 06:50 Urine collected: clean catch specimen, clear. rr5 07:38 CT Stone Protocol In Process Unspecified. EDMS 08:29 Primary Nurse role handed off by Tam Spann, SANDY bp 08:29 Alvarado Bhat, SANDY is Primary Nurse. bp 08:40 Surendra Guzman MD is Attending Physician. cp 09:32 No provider procedures requiring assistance completed. IV discontinued, intact, bp bleeding controlled, No redness/swelling at site. Pressure dressing applied. Administered Medications: 08:38 Drug: traMADol 50 mg Route: PO; bp 09:16 Follow up: Response: Pain is decreased bp 08:38 Drug: TORadol - Ketorolac 15 mg Route: IVP; Site: left antecubital; bp 09:15 Follow up: Response: Pain is decreased bp Outcome: 09:05 Discharge ordered by . cp 09:32 Discharged to home via wheelchair, with family. bp 09:32 Condition: stable 09:32 Discharge instructions given to patient, family, Instructed on discharge instructions, follow up and referral plans. medication usage, Demonstrated understanding of instructions, follow-up care, medications, Prescriptions given X 3. 09:33 Patient left the ED. bp Signatures: Dispatcher [employer] EDMS Adelso Aguilar PA PA cp Baxter, Heather, RN RN hb Alvarado Bhat RN RN bp Tam Spann RN RN rr5 Diane Pierre cl3 Corrections: (The following items were deleted from the chart) 07:00 06:50 Reassessment: Patient appears in no apparent distress at this time. Patient is rr5 alert, oriented x 3, equal unlabored respirations, skin warm/dry/pink. able to pee in bedpan, after care done bed linen changed. awaiting for review. no complaints made. rr5
--- NOTE | 2019-12-08 09:07 | EDPHYS ---
Physician Documentation [facility] Name: Yelitza Kellogg Age: 79 yrs Sex: Female : 1940 Arrival Date: 12/08/2019 Time: 05:35 Bed 4 Private MD: ED Physician Surendra Guzman HPI: 12/07 06:15 This 79 yrs old Female presents to ER via EMS with complaints of Back Pain. cp 06:15 The patient presents with pain that is acute, with no known mechanism of injury. cp 06:15 Onset: The symptoms/episode began/occurred 3 day(s) ago. Severity of symptoms: in the emergency department the symptoms have resolved, and did so just prior to arrival. 06:15 The symptoms are located in the low back. cp 06:15 Associated signs and symptoms: Pertinent negatives: abdominal pain, chest pain, cp constipation, dysuria, fever, headache, incontinence, numbness, urinary retention, vomiting, weakness. Historical: - Allergies: 05:51 NKDA; rr5 - Home Meds: 05:51 a blood thinner [Active]; STOOL SOFTNER [Active]; rr5 - PMHx: 05:51 Alzheimers; Chronic pain; Dementia; Hypertension; rr5 - PSHx: 05:51 None; rr5 - Immunization history:: Adult Immunizations up to date. - Social history:: Smoking status: unknown. ROS: 06:20 Constitutional: Negative for body aches, chills, fever, poor PO intake. cp 06:20 Eyes: Negative for injury, pain, redness, and discharge. cp 06:20 ENT: Negative for drainage from ear(s), ear pain, sore throat, difficulty swallowing, difficulty handling secretions. 06:20 Cardiovascular: Negative for chest pain, edema, palpitations. 06:20 Respiratory: Negative for cough, shortness of breath, wheezing. 06:20 Abdomen/GI: Negative for abdominal pain, nausea, vomiting, and diarrhea, constipation, black/tarry stool, rectal bleeding. 06:20 Back: Positive for pain at rest, pain with movement, Negative for injury or acute deformity. 06:20 : Negative for urinary symptoms, difficulty urinating, bladder incontinence. 06:20 Skin: Negative for rash. 06:20 Neuro: Negative for altered mental status, headache, numbness, weakness. 06:20 All other systems are negative. Exam: 06:30 Constitutional: The patient appears in no acute distress, alert, awake, non-toxic, well cp developed, well nourished. 06:30 Head/Face: Normocephalic, atraumatic. cp 06:30 Eyes: Periorbital structures: appear normal, Conjunctiva: normal, no exudate, no injection, Sclera: no appreciated abnormality, Lids and lashes: appear normal, bilaterally. 06:30 ENT: External ear(s): are unremarkable, Nose: is normal, Mouth: is normal, Posterior pharynx: is normal, airway is patent. 06:30 Neck: ROM/movement: is normal, is supple, without pain, no range of motions limitations, no nuchal rigidity. 06:30 Chest/axilla: Inspection: normal, Palpation: is normal, no crepitus, no tenderness. 06:30 Cardiovascular: Rate: normal, Rhythm: regular, Edema: is not appreciated, JVD: is not appreciated. 06:30 Respiratory: the patient does not display signs of respiratory distress, Respirations: normal, no use of accessory muscles, labored breathing, is not present, Breath sounds: are clear throughout, no decreased breath sounds. 06:30 Abdomen/GI: Inspection: abdomen appears normal, Bowel sounds: active, all quadrants, Palpation: abdomen is soft and non-tender, in all quadrants. 06:30 Back: pain, is absent, of the low back area and mid back area, ROM is CVA tenderness, is absent, Straight leg raises: of both lower extremities does not illicit pain. 06:30 Skin: no rash present. 06:30 Neuro: Orientation: no acute changes, per family, Mentation: no acute changes, per family, Motor: moves all fours, strength is normal, Sensation: is normal. Vital Signs: 05:47 BP 174 / 81; Pulse 60; Resp 16; Temp 98.6; Pulse Ox 98% ; rr5 06:58 BP 153 / 85; Pulse 57; Resp 16; Pulse Ox 99% on R/A; rr5 08:07 BP 154 / 79; Pulse 61; Resp 16; Pulse Ox 95% ; bp 09:31 BP 156 / 89; Pulse 74; Resp 16; Temp 98.5; Pulse Ox 99% ; bp MDM: 06:15 Patient medically screened. cp 06:30 Differential diagnosis: Cholelithiasis chronic back pain, Fracture Pyelonephritis cp Ureterolithiasis vertebral fracture. 09:00 ED course: [place] prescription monitoring program shows narcotic score of 50 and cp sedative score of 20 with no current active prescriptions for narcotics. 09:05 Data reviewed: vital signs, nurses notes, lab test result(s), radiologic studies, CT cp scan. 09:05 Counseling: I had a detailed discussion with the patient and/or guardian regarding: the cp historical points, exam findings, and any diagnostic results supporting the discharge/admit diagnosis, lab results, radiology results, the need for outpatient follow up, an stress analyst, to return to the emergency department if symptoms worsen or persist or if there are any questions or concerns that arise at home. Response to treatment: the patient's symptoms have markedly improved after treatment, and as a result, I will discharge patient. Physician consultation:. 12/07 06:18 Order name: Basic Metabolic Panel; Complete Time: 07:05 12/07 07:06 Interpretation: Normal except: GFR 67. 12/07 06:18 Order name: CBC with Diff; Complete Time: 06:47 12/07 06:47 Interpretation: Normal except: MPV 7.4. 12/07 06:18 Order name: Creatinine for Radiology; Complete Time: 07:05 12/07 06:18 Order name: Hepatic Function; Complete Time: 07:05 12/07 08:31 Interpretation: Normal except: GLOB 4.0; A/G 0.9. 12/07 06:18 Order name: Lipase; Complete Time: 07:05 12/07 06:18 Order name: Urine Microscopic Only; Complete Time: 07:38 12/07 07:38 Interpretation: Normal except: UWBC 5-10; SQEPI 5-10. 12/07 06:18 Order name: IV Saline Lock; Complete Time: 06:57 12/07 06:18 Order name: Labs collected and sent; Complete Time: 06:57 12/07 06:18 Order name: PT-INR; Complete Time: 07:05 12/07 06:52 Order name: Urine Dipstick--Ancillary (enter results); Complete Time: 07:05 mw2 12/07 07:06 Interpretation: Normal except: UBLD TRACE; UESTR 1+. 12/07 07:06 Order name: CT Stone Protocol; Complete Time: 08:30 12/07 07:48 Order name: Urine Culture [facility] 12/07 06:18 Order name: Urine Dipstick-Ancillary (obtain specimen); Complete Time: 06:57 cp 12/07 09:06 Order name: [facility]. Order: ambulate patient; Complete Time: 09:16 cp Administered Medications: 08:38 Drug: traMADol 50 mg Route: PO; bp 09:16 Follow up: Response: Pain is decreased bp 08:38 Drug: TORadol - Ketorolac 15 mg Route: IVP; Site: left antecubital; bp 09:15 Follow up: Response: Pain is decreased bp Disposition: :44 Co-signature as Attending Physician, Surendra Guzman MD. rn Disposition: 12/08/19 09:05 Discharged to Home. Impression: Low back pain. - Condition is Stable. - Discharge Instructions: Back Pain, Adult, Heat Therapy, Back Exercises. - Prescriptions for lidocaine 5 % Topical adhesive patch,medicated - apply 1 patch by TRANSDERMAL route once daily; 1 box. Tramadol 50 mg Oral Tablet - take 1 tablet by ORAL route every 8 hours As needed as needed; 20 tablet. docusate sodium 100 mg Oral capsule - take 1 capsule by ORAL route 2 times per day .; 30 capsule. - Medication Reconciliation Form, Thank You Letter, Antibiotic Education, Prescription Opioid Use form. - Follow up: Private Physician; When: 2 - 3 days; Reason: Recheck today's complaints. - Problem is new. - Symptoms have improved. Signatures: Dispatcher [employer] [facility] Surendra Guzman MD MD rn Page, Corey, PA PA cp Peltier, Brian RN RN Braeden Marrero, RN RN rr5 Corrections: (The following items were deleted from the chart) 09:33 09:05 12/08/2019 09:05 Discharged to Home. Impression: Low back pain. Condition is bp Stable. Prescriptions for lidocaine 5 % Topical adhesive patch,medicated - apply 1 patch by TRANSDERMAL route once daily; 1 box, Tramadol 50 mg Oral Tablet - take 1 tablet by ORAL route every 8 hours As needed as needed; 20 tablet. and Forms are Medication Reconciliation Form, Thank You Letter, Antibiotic Education, Prescription Opioid Use. Follow up: Private Physician; When: 2 - 3 days; Reason: Recheck today's complaints. Problem is new. Symptoms have improved. cp
[2019-12-08 09:46] VITALS: BP 156/89; TEMP 98.5; O2SAT 99
== END 2019-12-08 09:33 | disposition home or self-care (01) ==
LOC: ER 05:34
DX: M54.5 Low back pain (principal); I10 Essential (primary) hypertension; G30.9 Alzheimer's disease, unspecified; F02.80 Dementia in other diseases classified elsewhere, unspecified severity, without behavioral disturbance, psychotic disturbance, mood disturbance, and anxiety
CPT/HCPCS: 36415; 74176; 76377; 80048; 80076; 81003; 81015; 83690; 85025; 85610; 87086; 87088; 96374; 99284

== ENCOUNTER 2019-12-14 10:12 | Emergency (ER) | payer OTHER ==
--- NOTE | 2019-12-14 12:27 | RAD REPORT ---
EXAM DESCRIPTION: US - Extremity Venous Uni Ltd - 12/14/2019 12:07 pm CLINICAL HISTORY: swelling of right leg COMPARISON: None. TECHNIQUE: Real-time sonographic evaluation of the right lower extremity deep venous systems was per formed. FINDINGS: Normal compressibility, flow augmentation, phasic flow and spontaneous flow are identified in the right lower extremity common femoral, superficial femoral, popliteal and posterior tibial vei ns. No intraluminal filling defects seen. A 3 centimeter oval anechoic to hypoechoic collection in the popliteal fossa is typical for Rashid cys t. No cyst rupture or hemorrhage findings seen. IMPRESSION: No DVT in the right lower extremity. Approximately 3 centimeter cystic collection in the popliteal fossa is most likely incidental Rashid's cyst. No cyst rupture or hemorrhage findings.
--- NOTE | 2019-12-14 12:39 | ER ---
Nurse's Notes [facility] Name: Yelitza Kellogg Age: 79 yrs Sex: Female : 1940 Arrival Date: 12/14/2019 Time: 10:19 Bed 19 Private MD: Diagnosis: Low back pain;Abdominal and pelvic pain;Constipation Presentation: 12/13 10:10 Chief complaint: EMS states: Pt. is 79 yr. old, A \T\ O x 1 due to Dementia. EMS reports rb1 that it is unknown if the pt. fell, it was not witnessed. reports that items in the bathroom were all messed up, so he thinks she may have fallen last night. Pt. was crying since last night due to low back pain. administered Tramadol at 0800 and Tylenol at 0400 this morning. When EMS arrived the pt. was smiling and laughing. Denies recent travel or fever, Temp 98.2. History of Diverticulitis and Dementia. Coronavirus screen: Patient denies fever greater than 100.4F, cough, shortness of breath, or difficulty breathing. Proceed with normal triage process. Ebola Screen: Patient negative for fever greater than or equal to 101.5 degrees Fahrenheit, and additional compatible Ebola Virus Disease symptoms. Initial Sepsis Screen: Does the patient meet any 2 criteria? No. Patient's initial sepsis screen is negative. Does the patient have a suspected source of infection? No. Patient's initial sepsis screen is negative. Risk Assessment: Do you want to hurt yourself or someone else? Patient reports no desire to harm self or others. 10:10 Method Of Arrival: EMS: [facility] rb1 10:10 Acuity: ELIAS 3 rb1 10:10 Onset of symptoms was December 13, 2019. rb1 Triage Assessment: 10:10 General: Appears in no apparent distress. comfortable, slender, Behavior is calm, rb1 cooperative. Pain: Denies pain. Neuro: Level of Consciousness is awake, confused, Oriented to person. Cardiovascular: Patient's skin is warm and dry. Respiratory: Airway is patent Respiratory effort is even, unlabored, Respiratory pattern is regular, symmetrical. GI: No signs and/or symptoms were reported involving the gastrointestinal system. : No signs and/or symptoms were reported regarding the genitourinary system. Musculoskeletal: Range of motion: intact in all extremities. Historical: - Allergies: 10:10 NKDA; rb1 - Home Meds: 10:10 a blood thinner [Active]; STOOL SOFTNER [Active]; Tramadol Oral [Active]; rb1 - PMHx: 10:10 Alzheimers; Chronic pain; Dementia; Hypertension; rb1 - PSHx: 10:10 None; rb1 - Immunization history:: Adult Immunizations up to date. - Social history:: Smoking status: Patient/guardian denies using. Screenin:10 Abuse screen: Denies threats or abuse. Nutritional screening: No deficits noted. rb1 Tuberculosis screening: No symptoms or risk factors identified. Fall Risk Fall in past 12 months (25 points). Secondary diagnosis (15 points) Alzheimer's, dementia, No IV (0 pts). Ambulatory Aid- None/Bed Rest/Nurse Assist (0 pts). Gait- Normal/Bed Rest/Wheelchair (0 pts) Mental Status- Overestimates/Forgets Limitations (15 pts.). Total Jarvis Fall Scale indicates High Risk Score (45 or more points). Fall prevention measures have been instituted. Side Rails Up X 2 Placed Close to Nursing Station 1:1 Attendant Assigned Frequent Obs/Assessments Occuring As available patient and family educated on Fall Prevention Program and Strategies. Assessment: 11:22 Reassessment: at bedside. Reports pt has Dementia. General: Appears in no ca1 apparent distress. comfortable, Behavior is calm, cooperative. Pain: Complains of pain in low back area. Neuro: Level of Consciousness is awake, alert, obeys commands, Oriented to person, place. Cardiovascular: Heart tones S1 S2 present Capillary refill < 3 seconds Patient's skin is warm and dry. Respiratory: Airway is patent Respiratory effort is even, unlabored, Respiratory pattern is regular, symmetrical, Breath sounds are clear bilaterally. GI: Abdomen is flat, non-distended, Bowel sounds present X 4 quads. Abd is soft and non tender X 4 quads. : No signs and/or symptoms were reported regarding the genitourinary system. EENT: No signs and/or symptoms were reported regarding the EENT system. Derm: Skin is intact, is healthy with good turgor, Skin is pink, warm \T\ dry. Musculoskeletal: Circulation, motion, and sensation intact. Capillary refill < 3 seconds. 11:49 Reassessment: Ultrasound at bedside. ca1 12:30 Reassessment: Patient appears in no apparent distress at this time. No changes from ca1 previously documented assessment. Vital Signs: 10:10 BP 163 / 82; Pulse 64; Resp 17; Temp 98.1; Pulse Ox 98% on R/A; Weight 58.97 kg (R); rb1 Height 5 ft. 3 in. (160.02 cm) (R); Pain 0/10; 11:25 BP 166 / 88; Pulse 66; Resp 16 S; Pulse Ox 100% on R/A; ca1 12:30 BP 165 / 76; Pulse 61; Resp 17 S; Pulse Ox 98% on R/A; ca1 10:10 Body Mass Index 23.03 (58.97 kg, 160.02 cm) rb1 ED Course: 10:10 Arm band placed on right wrist. rb1 10:10 Patient has correct armband on for positive identification. Bed in low position. Call rb1 light in reach. Side rails up X 1. Pulse ox on. NIBP on. 10:19 Patient arrived in ED. rb1 10:24 Raúl Diego MD is Attending Physician. kdr 10:26 Triage completed. rb1 10:42 Felecia Douglas, RN is Primary Nurse. rb1 11:22 Primary Nurse role handed off by Felecia Douglas, SANDY ca1 11:22 Alexia Phelan, SANDY is Primary Nurse. ca1 11:22 Warm blanket given. ca1 11:22 No provider procedures requiring assistance completed. Patient did not have IV access ca1 during this emergency room visit. 12:07 US Extremity Venous Unilateral Ltd In Process Unspecified. EDMS 12:08 Ultrasound completed. Patient tolerated well. sg3 12:37 Alvarado Villanueva MD is Referral Physician. kdr Administered Medications: No medications were administered Outcome: 12:39 Discharge ordered by . kdr 13:05 Discharged to home ambulatory, with significant other. ca1 13:05 Condition: stable 13:05 Discharge instructions given to significant other, Instructed on discharge instructions, follow up and referral plans. medication usage, Demonstrated understanding of instructions, follow-up care, medications, Prescriptions given X 1. 13:06 Patient left the ED. ca1 Signatures: Dispatcher [employer] EDMS Raúl Diego MD MD kdr Felecia Douglas, SANDY RN [facility] Laura Dean sg3 Alexia Phelan RN RN ca1 Corrections: (The following items were deleted from the chart) 10:45 10:10 Chief complaint: EMS states: Pt. is 79 yr. old, A \T\ O x 1 due to Dementia. EMS rb1 reports that it is unknown if the pt. fell, it was not witnessed. reports that items in the bathroom were all messed up, so he thinks she may have fallen last night. Pt. was crying since last night due to low back pain. administered Tramadol and Tylenol at 0400 this morning. When EMS arrived the pt. was smiling and laughing. Denies recent travel or fever, Temp 98.2. History of Diverticulitis and Dementia. rb1
--- NOTE | 2019-12-14 12:40 | EDPHYS ---
Physician Documentation [facility] Name: Yelitza Kellogg Age: 79 yrs Sex: Female : 1940 Arrival Date: 12/14/2019 Time: 10:19 Bed 19 Private MD: ED Physician Raúl Diego HPI: 12/13 11:09 This 79 yrs old Female presents to ER via EMS with complaints of Low Back kdr Pain. 11:09 The patient began to have recurrent low back and possibly abdominal anna last night kdr about 10:00 PM. The patient had been seen here last week for similar issues. She had been diagnosed with low back pain and fecal retention. Since then, she has been taking stool softeners and pain medication and had been doing well until last night. This morning, she was in considerable pain and could not get comfortable. Onset: The symptoms/episode began/occurred last night. Severity of symptoms: At their worst the symptoms were moderate severe in the emergency department the symptoms have resolved. The patient has experienced similar episodes in the past, The patient has been having similar problems for the last few weeks and was recently seen here in the ED for the same problem. The patient has been recently seen by a physician: The patient has been recently seen at the [facility] Emergency Department, last week. Historical: - Allergies: 10:10 NKDA; rb1 - Home Meds: 10:10 a blood thinner [Active]; STOOL SOFTNER [Active]; Tramadol Oral [Active]; rb1 - PMHx: 10:10 Alzheimers; Chronic pain; Dementia; Hypertension; rb1 - PSHx: 10:10 None; rb1 - Immunization history:: Adult Immunizations up to date. - Social history:: Smoking status: Patient/guardian denies using. ROS: 11:09 Constitutional: Negative for fever, chills, and weight loss, Eyes: Negative for injury, kdr pain, redness, and discharge, ENT: Negative for injury, pain, and discharge, Neck: Negative for injury, pain, and swelling, Cardiovascular: Negative for chest pain, palpitations, and edema, Respiratory: Negative for shortness of breath, cough, wheezing, and pleuritic chest pain, : Negative for injury, bleeding, discharge, and swelling, MS/Extremity: Negative for injury and deformity, Skin: Negative for injury, rash, and discoloration, Neuro: Negative for headache, weakness, numbness, tingling, and seizure activity. Psych: Negative for depression, anxiety, suicide ideation, homicidal ideation, and hallucinations, Allergy/Immunology: Negative for hives, rash, and allergies, Endocrine: Negative for neck swelling, polydipsia, polyuria, polyphagia, and marked weight changes, Hematologic/Lymphatic: Negative for swollen nodes, abnormal bleeding, and unusual bruising. 11:09 Abdomen/GI: Positive for abdominal pain, constipation, abdominal cramps, Negative for diarrhea, abdominal distension, anorexia, dysphagia, hematemesis, black/tarry stool, rectal pain, rectal bleeding, bowel incontinence. 11:09 Back: Positive for pain at rest, of the low back area. Exam: 11:09 Constitutional: This is a well developed, well nourished patient who is awake, alert, kdr and in no acute distress. Head/Face: Normocephalic, atraumatic. Eyes: Pupils equal round and reactive to light, extra-ocular motions intact. Lids and lashes normal. Conjunctiva and sclera are non-icteric and not injected. Cornea within normal limits. Periorbital areas with no swelling, redness, or edema. Neck: Trachea midline, no thyromegaly or masses palpated, and no cervical lymphadenopathy. Supple, full range of motion without nuchal rigidity, or vertebral point tenderness. No Meningismus. Chest/axilla: Normal chest wall appearance and motion. Nontender with no deformity. No lesions are appreciated. Cardiovascular: Regular rate and rhythm with a normal S1 and S2. No gallops, murmurs, or rubs. Normal PMI, no JVD. No pulse deficits. Respiratory: Lungs have equal breath sounds bilaterally, clear to auscultation and percussion. No rales, rhonchi or wheezes noted. No increased work of breathing, no retractions or nasal flaring. Abdomen/GI: Soft, non-tender, with normal bowel sounds. No distension or tympany. No guarding or rebound. No evidence of tenderness throughout. Back: No spinal tenderness. No costovertebral tenderness. Full range of motion. Skin: Warm, dry with normal turgor. Normal color with no rashes, no lesions, and no evidence of cellulitis. MS/ Extremity: Pulses equal, no cyanosis. Neurovascular intact. Full, normal range of motion. Neuro: Awake and alert, GCS 15, oriented to person, place, time, and situation. Cranial nerves II-XII grossly intact. Motor strength 5/5 in all extremities. Sensory grossly intact. Cerebellar exam normal. Normal gait. Psych: Awake, alert, with orientation to person, place and time. Behavior, mood, and affect are within normal limits. 11:09 Abdomen/GI: The patient was stable and pain free in the ED. Vital Signs: 10:10 BP 163 / 82; Pulse 64; Resp 17; Temp 98.1; Pulse Ox 98% on R/A; Weight 58.97 kg (R); rb1 Height 5 ft. 3 in. (160.02 cm) (R); Pain 0/10; 11:25 BP 166 / 88; Pulse 66; Resp 16 S; Pulse Ox 100% on R/A; ca1 12:30 BP 165 / 76; Pulse 61; Resp 17 S; Pulse Ox 98% on R/A; ca1 10:10 Body Mass Index 23.03 (58.97 kg, 160.02 cm) rb1 MDM: 11:09 Data reviewed: vital signs, nurses notes, lab test result(s), radiologic studies. kdr Counseling: I had a detailed discussion with the patient and/or guardian regarding: the historical points, exam findings, and any diagnostic results supporting the discharge/admit diagnosis, lab results, radiology results. 12:39 Patient medically screened. kdr 12/13 10:54 Order name: Extremity Venous Unilateral Ltd; Complete Time: 12:37 kdr Administered Medications: No medications were administered Disposition: 12/14/19 12:39 Discharged to Home. Impression: Low back pain, Abdominal and pelvic pain, Constipation. - Condition is Stable. - Discharge Instructions: Constipation, Adult, [id number], Abdominal Pain, Adult, [id number], Back Pain, Adult, [id number]. - Prescriptions for Miralax 17 gram/dose Oral - take 1 packet by ORAL route once daily As needed dilute powder in 8 ounces of water or juice; 16 packet. - Medication Reconciliation Form, Thank You Letter form. - Follow up: Private Physician; When: 2 - 3 days; Reason: If symptoms return, Further diagnostic work-up, Recheck today's complaints, Continuance of care, Re-evaluation by your physician. Follow up: Alvarado Villanueva MD; When: 2 - 3 days; Reason: If symptoms return, Further diagnostic work-up, Recheck today's complaints, Continuance of care, Re-evaluation by your physician. Signatures: Dispatcher [employer] EDMS Raúl Diego MD MD kdr Felecia Douglas RN RN rb1 AcAlexia saeed RN RN ca1 Corrections: (The following items were deleted from the chart) 13:06 12:39 12/14/2019 12:39 Discharged to Home. Impression: Low back pain; Abdominal and ca1 pelvic pain; Constipation. Condition is Stable. Forms are Medication Reconciliation Form, Thank You Letter, Antibiotic Education, Prescription Opioid Use. Follow up: Private Physician; When: 2 - 3 days; Reason: If symptoms return, Further diagnostic work-up, Recheck today's complaints, Continuance of care, Re-evaluation by your physician. Follow up: Alvarado Villanueav; When: 2 - 3 days; Reason: If symptoms return, Further diagnostic work-up, Recheck today's complaints, Continuance of care, Re-evaluation by your physician. kdr
[2019-12-14 13:54] VITALS: BP 165/76; O2SAT 98
== END 2019-12-14 13:06 | disposition home or self-care (01) ==
LOC: ER 10:12
DX: M54.5 Low back pain (principal); R10.9 Unspecified abdominal pain; R10.2 Pelvic and perineal pain; K59.00 Constipation, unspecified
CPT/HCPCS: 93971; 99284

== ENCOUNTER 2020-05-19 12:44 | Emergency (ER) | payer OTHER ==
--- OUTSIDE RECORDS SUMMARY | 2020-05-19 12:46 | XMS REPORT | Summary of Care ---
:1940 Author Organization [facility] - [facility] Address [address] [place] [address] Care Team Providers Name Role Phone NataliyaroberAlvarado Evelyn Primary Care Provider Reason for Visit Reason Comments Results covid Encounter Details Date Type Department Care Team Description 04/11/2020 Telephone ACCESS CENTER Pcp, Patient Does Not Results (covid) [address] [facility] [address] 301 [facility] [phone] [place], [place] [address] Allergies No Known Allergiesdocumented as of this encounter (statuses as of 04/11/2020) Medications Medication Sig Dispensed Refills Start Date End Date Status ACETAMINOPHEN (TYLENOL Take by 0 Active ORAL) mouth. cyclobenzaprine (FLEXERIL) 0 02/07/2016 Active 10 mg tablet documented as of this encounter (statuses as of 04/11/2020) Active Problems Problem Noted Date Bilateral foot pain 02/04/2016 documented as of this encounter (statuses as of 04/11/2020) Social History Tobacco Use Types Packs/Day Years Used Date Never Smoker Alcohol Use Drinks/Week oz/Week Comments Not Asked 0 Standard drinks or equivalent 0.0 Sex Assigned at Date Recorded Not on file Job Start Date Occupation Industry Not on file Not on file Not on file Travel History Travel Start Travel End No recent travel history available. COVID-19 Exposure Response Date Recorded In the last month, have you been in contact with Yes 04/07/2020 6:56 AM CDT someone who was confirmed or suspected to have Coronavirus / COVID-19? documented as of this encounter Last Filed Vital Signs Not on filedocumented in this encounter Plan of Treatment Health Maintenance Due Date Last Done Comments DTaP,Tdap,and Td Vaccines (1 - Tdap) 1953 Depression Screening 1954 Zoster Recombinant Vaccine (SHINGRIX) (1 of 2) 1992 Medicare Wellness Visit 2007 Osteoporosis Screening 2007 PNEUMOCOCCAL VACCINES 65+ (1 of 2 - PCV13) 2007 INFLUENZA VACCINE (#1) 2020 documented as of this encounter Results Not on filedocumented in this encounter Additional Health Concerns Infection Onset Date Last Indicated Resolved Time COVID-19 Confirmed 04/07/2020 04/07/2020 documented as of this encounter Insurance Payer Benefit Plan / Subscriber ID Effective Phone Address T ype Group Dates MEDICARE MEDICARE PART xxxxxxxxxxx 2007-Pre [phone] Medicare A & B sent [phone] [place] [phone] [facility] [id number] 2015-Pres C ommercial COMMERCIAL ent Group GROUP documented as of this encounter
--- OUTSIDE RECORDS SUMMARY | 2020-05-19 12:46 | XMS REPORT | Clinical Summary ---
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
--- OUTSIDE RECORDS SUMMARY | 2020-05-19 12:46 | XMS REPORT | Summary of Care ---
:1940 Author Organization [facility] Address [address] [place] [id number] Care Team Providers Name Role Phone Alvarado Villanueva Primary Care Provider Reason for Visit Reason Comments Exposure Encounter Details Date Type Department Care Team Description 04/07/2020 Laboratory Only [facility] Yoli Mayers, RAPHAEL [address] [facility] [address] [place] [address] Suspected Covid-19 Medicine - [facility], Adc Fam Pob I Virus Infection [address] [facility] [address] [place] [address] Allergies No Known Allergiesdocumented as of this encounter (statuses as of 04/07/2020) Medications Medication Sig Dispensed Refills Start Date End Date Status ACETAMINOPHEN (TYLENOL Take by 0 Active ORAL) mouth. cyclobenzaprine (FLEXERIL) 0 02/07/2016 Active 10 mg tablet documented as of this encounter (statuses as of 04/07/2020) Active Problems Problem Noted Date Bilateral foot pain 02/04/2016 documented as of this encounter (statuses as of 04/07/2020) Social History Tobacco Use Types Packs/Day Years [...] filedocumented in this encounter Plan of Treatment Date Type Specialty Care Team Description 04/13/2020 Office Visit Neurology Vincenzo Lomeli MD [address] [place] [address] [phone] Name Type Priority Associated Diagnoses Order S chedule COVID-19 (PCR MOLECULAR LAB Routine Suspected Covid-1 9 Virus Expected: 04/07/2020, TESTING) Infection Expires: 2020 Health Maintenance Due Date Last Done Comments DTaP,Tdap,and Td Vaccines (1 - Tdap) 1953 Depression Screening 1954 Zoster Recombinant Vaccine (SHINGRIX) (1 of 2) 1992 Medicare Wellness Visit 2007 Osteoporosis Screening 2007 PNEUMOCOCCAL VACCINES 65+ (1 of 2 - PCV13) 2007 INFLUENZA VACCINE (#1) 2020 documented as of this encounter Results Not on filedocumented in this encounter Visit Diagnoses Diagnosis Suspected Covid-19 Virus Infection - Alison carlos documented in this encounter Additional Health Concerns Infection Onset Date Last Indicated Resolved Time COVID-19 Rule Out 04/07/2020 04/07/2020 documented as of this encounter Insurance Payer Benefit Plan / Subscriber ID Effective Phone Address T ype Group Dates MEDICARE MEDICARE PART xxxxxxxxxxx 2007-Pre [phone] Medicare A & B sent [phone] [id number] [place] [id number] [facility] [id number] 2015-Pres C ommercial COMMERCIAL ent Group GROUP documented as of this encounter
--- OUTSIDE RECORDS SUMMARY | 2020-05-19 12:46 | XMS REPORT | Summary of Care ---
:1940 Author Organization [facility] Address [address] [place] [address] Care Team Providers Name Role Phone NataliyaroberAlvarado Evelyn Primary Care Provider Reason for Visit Reason Comments Lab Results Encounter Details Date Type Department Care Team Description 04/10/2020 Telephone ACCESS CENTER Eva Kilpatrick PA Lab Results [address] [place] [address] [place] [address] Allergies No Known Allergiesdocumented as of this [...] BOX Medicare A & B sent [id number] [place] [phone] [facility] [employer] [facility] [employer] [id number] 2015-Pres C ommercial COMMERCIAL ent Group GROUP documented as of this encounter
--- OUTSIDE RECORDS SUMMARY | 2020-05-19 12:46 | XMS REPORT | Continuity of Care Document ---
:1940 Author Organization [facility] t Address [address] [place] [address] Care Team Providers Name Role Phone Asked, Pcp Primary Care Physician Unavailable Pcp, Does Not Have A Attending Clinician Shonna JO, Jack Attending Clinician Lab, Fam Pob I Attending Clinician Unavailable Problems Condition Condition Condition Status Onset Resolution Last Treating Co mments Source Name Details Category Date Date Treatment Clinician Date Hyponatrem Hyponatrem Disease Active H clementina ia ia 12-31 Methodi 00:00: st 00 Alzheimer' Alzheimer' Disease Active H clementina s dementia s dementia 12-31 Co thodi 00:00: st 00 Accelerate Accelerate Disease Active H clementina d d 12-31 Methodi hypertensi hypertensi 00:00: st on on Fibrositis Fibrositis Disease Active H clemetnina 12-31 Methodi 00:00: st 00 Inflammati Inflammati Disease Active 2016- H clementina on of on of 12-31 Methodi sacroiliac sacroiliac 00:00: st joint joint 00 Blood loss Blood loss Disease Active H clementina anemia anemia 12-31 Methodi 00:00: st 00 Allergies, Adverse Reactions, Alerts This patient has no known allergies or adverse reactions. Social History Social Habit Start Date Stop Date Quantity Comments Source Sex Assigned At [facility] ethodist Alcohol intake 2016-12-31 2016-12-31 Current [facility] thodi 00:00:00 00:00:00 non-drinker of alcohol (finding) Smoking Status Start Date Stop Date Source Never smoker [facility] Medications This patient has no known medications. Procedures This patient has no known procedures. Plan of Care Planned Activity Planned Date Details Comments Source Future Scheduled 2020-06-24 INFLUENZA VACCINE [facility] 00:00:00 [code = INFLUENZA VACCINE] Future Scheduled 2007 65+ PNEUMOCOCCAL [facility] 00:00:00 VACCINE (1 of 2 - PCV13) [code = 65+ PNEUMOCOCCAL VACCINE (1 of 2 - PCV13)] Future Scheduled 1992 SHINGLES VACCINES (#1) [facility] 00:00:00 [code = SHINGLES VACCINES (#1)] Encounters Start End Encounter Admission Attending Care Care Encounter Source Date/Time Date/Time Type Type Clinicians Facility Department ID 2020-04-11 2020-04-11 Telephone MAGDI Haley [id number] 00:00:00 00:00:00 Patient JAVY [id number] Does Not HOSPITAL [id number] Have A [id number] 2020-04-10 2020-04-10 Telephone ShonnaMAGDI [id number] 00:00:00 00:00:00 [facility]ericskon [place] [id number] [facility] [id number] 2020-04-07 2020-04-07 Laboratory Lab, [facility] [id number] 07:48:20 08:08:20 Only Fam Pob I Health [id number] [place] [id number] Professio [phone] nal [address] One Results This patient has no known results.
[2020-05-19] MEDS ORDERED: ONDANSETRON 4 MG/2 ML VIAL ONE (13:54)
[2020-05-19] MEDS ORDERED: NA CHLORIDE 0.9% 500 ML ONE (13:54)
[2020-05-19] MEDS ORDERED: MEPERIDINE HCL 50 MG/ML ONE (13:54)
[2020-05-19 13:57] LABS: Absolute Lymphocytes (CBC) 1.3 K/uL (0.7-4.9); Basophils % 0.6 % (0-1.3); Hematocrit 37.5 % (36.0-45.0); Lymphocytes % 19.1 % (15.3-44.8); MPV 7.9 fL (7.6-11.3); RBC Red Blood Cell Count 4.24 M/uL (3.86-4.86)
[2020-05-19 14:08] LABS: Albumin 3.5 g/dL (3.4-5.0); Bilirubin Direct 0.1 mg/dL (0-0.2); Bilirubin Total 0.4 mg/dL (0.2-1.0); Potassium 3.8 mmol/L (3.5-5.1); Protein, Total 7.3 g/dL (6.4-8.2)
--- NOTE | 2020-05-19 15:08 | RAD REPORT ---
EXAM DESCRIPTION: CT - Abdomen Pelvis W Contrast - 05/19/2020 2:39 pm CLINICAL HISTORY: Abdominal pain COMPARISON: November 2019 TECHNIQUE: Computed axial tomography of the abdomen pelvis was obtained. 100 cc Isovue-300 was admin istered intravenously. Oral contrast was not requested which limits evaluation of bowel. All CT scans are performed using dose optimization technique as appropriate and may include automated exposure control or mA/KV adjustment according to patient size. FINDINGS: The liver, spleen, adrenal and kidneys appear unremarkable. Atrophic pancreas There is no evidence of diverticulitis. . Moderate amount stool throughout Small left inguinal hernia contains portion of small bowel. Small bowel caliber upper limits normal. IMPRESSION: Small left inguinal hernia contains portion of small bowel
--- NOTE | 2020-05-19 16:22 | EDPHYS ---
Physician Documentation [facility] Name: Yelitza Kellogg Age: 79 yrs Sex: Female : 1940 Arrival Date: 05/19/2020 Time: 12:57 Bed 4 Private MD: ED Physician Surendra Guzman HPI: 05/19 16:09 This 79 yrs old Female presents to ER via EMS with complaints of abdominal rn pain. 16:09 The patient presents with abdominal pain that is diffuse. Onset: The symptoms/episode rn began/occurred at an unknown time. The symptoms do not radiate. Associated signs and symptoms: Pertinent positives: constipation, Pertinent negatives: blood in stools, fever, vomiting. The symptoms are described as crampy. Modifying factors: The symptoms are alleviated by nothing, the symptoms are aggravated by touching the area. Severity of pain: At its worst the pain was moderate in the emergency department the pain has improved. The patient has experienced similar episodes in the past. + abd pain, vague, non-focal, no fever/vomiting/diarrhea. + constipation, which she has had multiple visits for in past, last normal BM yesterday, has not tried stool softener or laxative. NO trauma. No urinary symptoms. NO blood in stool. . Historical: - Allergies: 13:01 NKDA; ph - PMHx: 13:01 Alzheimers; Chronic pain; Dementia; Hypertension; ph - PSHx: 13:01 None; ph - Immunization history:: Adult Immunizations unknown. - Social history:: Smoking status: Patient denies any tobacco usage or history of. - Family history:: not pertinent. - Hospitalizations: : No recent hospitalization is reported. ROS: 16:09 Constitutional: Negative for fever, chills, and weight loss, Eyes: Negative for injury, rn pain, redness, and discharge, Cardiovascular: Negative for chest pain, palpitations, and edema, Respiratory: Negative for shortness of breath, cough, wheezing, and pleuritic chest pain, Abdomen/GI: + abd cramping, + constipation MS/Extremity: Negative for injury and deformity, Skin: Negative for injury, rash, and discoloration, Neuro: Negative for headache, weakness, numbness, tingling, and seizure. Exam: 16:09 Constitutional: This is a well developed, well nourished patient who is awake, alert, rn and in no acute distress. ENT: dry MM Cardiovascular: Regular rate and rhythm with a normal S1 and S2. No gallops, murmurs, or rubs. Normal PMI, no JVD. No pulse deficits. Respiratory: Lungs have equal breath sounds bilaterally, clear to auscultation and percussion. No rales, rhonchi or wheezes noted. No increased work of breathing, no retractions or nasal flaring. Abdomen/GI: Soft, mild periumbilical tenderness, + small easily reducible left inguinal hernia, no overlying skin changes. Non-distended Skin: Warm, dry MS/ Extremity: Pulses equal, no cyanosis. Neurovascular intact. Full, normal range of motion. Equal circumference. Neuro: Awake and alert, GCS 15 Vital Signs: 12:57 BP 169 / 99; Pulse 66; Resp 18; Temp 98.0(O); Pulse Ox 99% on R/A; Weight 62.6 kg (R); ph 14:07 BP 149 / 93; Pulse 76; Resp 18; Pulse Ox 100% on R/A; ph 15:30 BP 154 / 101; Pulse 75; Resp 16; Pulse Ox 98% on R/A; ph 16:39 BP 147 / 89; Pulse 76; Resp 18; Temp 97.8; Pulse Ox 99% on R/A; ph MDM: 12:57 Patient medically screened. rn 16:09 Differential diagnosis: bowel obstruction, non-specific abd pain, hernia, incarcerated rn hernia, constipation, UTI. Data reviewed: vital signs, nurses notes, lab test result(s), radiologic studies, CT scan, and as a result, I will discharge patient. Counseling: I had a detailed discussion with the patient and/or guardian regarding: the historical points, exam findings, and any diagnostic results supporting the discharge/admit diagnosis, lab results, radiology results, the need for outpatient follow up, to return to the emergency department if symptoms worsen or persist or if there are any questions or concerns that arise at home. Medical screen evaluation completed. EMTALA emergency medical condition absent. Special discussion: Based on the patient's Hx, exam, and Dx evaluation, there is no indication for emergent surgery or inpatient Tx. It is understood by the patient/guardian that if the Sx's persist or worsen they need to return immediately for re-evaluation. I discussed with the patient/guardian in detail that at this point there is no indication for admission to the hospital. It is understood, however, that if the symptoms persist or worsen the patient needs to return immediately for re-evaluation. Based on the history and exam findings, there is no indication for further emergent testing or inpatient evaluation. I discussed with the patient/guardian the need to see the general surgeon for further evaluation of the symptoms. ED course: Pt improved after bedside reduction of inguinal hernia. Consulted with Dr. Hendrix, states will see patient in his clinic tomorrow for reeval. Will dc home with laxatives/stool softener as she has had before. No evidence of obstruction or infection. No acute findings in bloodwork either. . 16:20 Response to treatment: the patient's symptoms have mildly improved after treatment. rn 05/19 13:05 Order name: Basic Metabolic Panel; Complete Time: 15:12 rn 05/19 13:05 Order name: CBC with Diff; Complete Time: 15:12 rn 05/19 13:05 Order name: Hepatic Function; Complete Time: 15:12 rn 05/19 13:05 Order name: Lipase; Complete Time: 15:12 rn 05/19 13:05 Order name: CT Abd/Pelvis - PO and IV Contrast; Complete Time: 15:12 rn 05/19 13:05 Order name: IV Saline Lock; Complete Time: 13:56 rn 05/19 13:05 Order name: Labs collected and sent; Complete Time: 13:56 rn Administered Medications: 13:35 Drug: Zofran (Ondansetron) 4 mg Route: IVP; Site: left antecubital; ph 16:38 Follow up: Response: No adverse reaction ph 13:52 Drug: NS 0.9% 500 ml Route: IV; Rate: bolus; Site: left antecubital; ph 16:38 Follow up: Response: No adverse reaction; IV Status: Completed infusion; IV Intake: ph 500ml 13:56 Drug: Demerol - Meperidine 12.5 mg Route: IVP; Site: left antecubital; ph 16:38 Follow up: Response: No adverse reaction; Pain is decreased ph 15:43 Drug: Demerol 12.5 mg Route: IVP; Site: left antecubital; ph 16:38 Follow up: Response: No adverse reaction; Pain is decreased ph Disposition: 05/19/20 16:21 Discharged to Home. Impression: Constipation, unspecified, Unilateral inguinal hernia, without obstruction or gangrene, not specified as recurrent. - Condition is Stable. - Discharge Instructions: Constipation, Adult, Hernia, Adult. - Medication Reconciliation Form, Thank You Letter, Antibiotic Education, Prescription Opioid Use form. - Follow up: Venkatesh Hendrix MD; When: Tomorrow; Reason: Recheck today's complaints, Re-evaluation by your physician. - Problem is new. - Symptoms have improved. Signatures: Dispatcher [employer] EDMS Surendra Guzman MD MD rn Hall, Patricia, RN RN ph Corrections: (The following items were deleted from the chart) 16:39 16:21 05/19/2020 16:21 Discharged to Home. Impression: Constipation, unspecified; ph Unilateral inguinal hernia, without obstruction or gangrene, not specified as recurrent. Condition is Stable. Forms are Medication Reconciliation Form, Thank You Letter, Antibiotic Education, Prescription Opioid Use. Follow up: Venkatesh Hendrix; When: Tomorrow; Reason: Recheck today's complaints, Re-evaluation by your physician. Problem is new. Symptoms have improved. rn
--- NOTE | 2020-05-19 16:22 | ER ---
Nurse's Notes [facility] Name: Yelitza Kellogg Age: 79 yrs Sex: Female : 1940 Arrival Date: 05/19/2020 Time: 12:57 Bed 4 Private MD: Diagnosis: Constipation, unspecified;Unilateral inguinal hernia, without obstruction or gangrene, not specified as recurrent Presentation: 05/19 12:57 Chief complaint: EMS states: Pt c/o L sided abdominal pain, hx of dementia so is unsure ph of when it started, noted to be guarding abdomen and rocking, started 20 G LAC and administered 25 mcg Fentanyl, denies N/V/D, no fever, initial BP elevated at 180 systolic, decreased to 160s after pain medication. Coronavirus screen: Client denies travel out of the [place] in the last 14 days. Coronavirus screen: At this time, the client does not indicate any symptoms associated with coronavirus-19. Ebola Screen: No symptoms or risks identified at this time. Initial Sepsis Screen: Does the patient meet any 2 criteria? No. Patient's initial sepsis screen is negative. Does the patient have a suspected source of infection? No. Patient's initial sepsis screen is negative. Risk Assessment: Do you want to hurt yourself or someone else? Patient reports no desire to harm self or others. Onset of symptoms was May 19, 2020. 12:57 Method Of Arrival: EMS: [facility] 12:57 Acuity: ELIAS 3 ph Historical: - Allergies: 13:01 NKDA; ph - PMHx: 13:01 Alzheimers; Chronic pain; Dementia; Hypertension; ph - PSHx: 13:01 None; ph - Immunization history:: Adult Immunizations unknown. - Social history:: Smoking status: Patient denies any tobacco usage or history of. - Family history:: not pertinent. - Hospitalizations: : No recent hospitalization is reported. Screenin:01 Abuse screen: Denies threats or abuse. Denies injuries from another. Nutritional ph screening: No deficits noted. Tuberculosis screening: No symptoms or risk factors identified. Fall Risk None identified. Assessment: 13:00 General: Appears in no apparent distress. comfortable, slender, well groomed, Behavior ph is calm, cooperative, appropriate for age, Denies fever. Pain: Complains of pain in left upper quadrant and left lower quadrant. Neuro: Level of Consciousness is awake, alert, obeys commands, Oriented to person, place. Cardiovascular: Capillary refill < 3 seconds in bilateral fingers Patient's skin is warm and dry. Respiratory: Airway is patent Respiratory effort is even, unlabored, Respiratory pattern is regular, symmetrical. GI: Abdomen is flat, non-distended, Reports lower abdominal pain, upper abdominal pain, Patient currently denies nausea, vomiting. Derm: Skin is intact, Skin is pink, warm \\T\\ dry. Musculoskeletal: Circulation, motion, and sensation intact. Range of motion: intact in all extremities. 14:07 Reassessment: Patient appears in no apparent distress at this time. Patient and/or ph family updated on plan of care and expected duration. Pain level reassessed. Pt awake and alert, oriented to person and place, at bedside states, " I don't know if she is going to drink that contrast." Pt medicated for pain and nausea and encouraged to drink PO contrast for best images during CT scan, VSS, will continue to monitor. 16:39 Reassessment: Patient appears in no apparent distress at this time. Patient and/or ph family updated on plan of care and expected duration. Pain level reassessed. Instructed to follow up w/ Dr Hendrix d/jose home w/ SO. Vital Signs: 12:57 BP 169 / 99; Pulse 66; Resp 18; Temp 98.0(O); Pulse Ox 99% on R/A; Weight 62.6 kg (R); ph 14:07 BP 149 / 93; Pulse 76; Resp 18; Pulse Ox 100% on R/A; ph 15:30 BP 154 / 101; Pulse 75; Resp 16; Pulse Ox 98% on R/A; ph 16:39 BP 147 / 89; Pulse 76; Resp 18; Temp 97.8; Pulse Ox 99% on R/A; ph ED Course: 12:57 Patient arrived in ED. bp 12:57 Irene Rodriguez, RN is Primary Nurse. ph 12:57 Surendra Guzman MD is Attending Physician. rn 13:01 Triage completed. ph 13:01 Arm band placed on Patient placed in an exam room, on a stretcher, on sr. director product management, ph on pulse oximetry. 13:02 Patient has correct armband on for positive identification. Bed in low position. Call ph light in reach. Side rails up X 1. heavy equipment field mechanic on. Pulse ox on. NIBP on. Door closed. Warm blanket given. 14:06 Initial lab(s) drawn, by me, sent to lab. Maintain EMS IV. Dressing intact. Good blood ph return noted. Site clean \\T\\ dry. Gauge \\T\\ site: 20 LAC. 14:39 CT Abd/Pelvis - PO and IV Contrast In Process Unspecified. EDMS 16:20 Venkatesh Hendrix MD is Referral Physician. rn 16:37 No provider procedures requiring assistance completed. IV discontinued, intact, ph bleeding controlled, No redness/swelling at site. Pressure dressing applied. Administered Medications: 13:35 Drug: Zofran (Ondansetron) 4 mg Route: IVP; Site: left antecubital; ph 16:38 Follow up: Response: No adverse reaction ph 13:52 Drug: NS 0.9% 500 ml Route: IV; Rate: bolus; Site: left antecubital; ph 16:38 Follow up: Response: No adverse reaction; IV Status: Completed infusion; IV Intake: ph 500ml 13:56 Drug: Demerol - Meperidine 12.5 mg Route: IVP; Site: left antecubital; ph 16:38 Follow up: Response: No adverse reaction; Pain is decreased ph 15:43 Drug: Demerol 12.5 mg Route: IVP; Site: left antecubital; ph 16:38 Follow up: Response: No adverse reaction; Pain is decreased ph Intake: 16:38 IV: 500ml; Total: 500ml. ph Outcome: 16:21 Discharge ordered by . rn 16:38 Discharged to home via wheelchair, with family. ph 16:38 Condition: good 16:38 Discharge instructions given to family, Instructed on discharge instructions, follow up and referral plans. Demonstrated understanding of instructions, follow-up care. 16:39 Patient left the ED. ph Signatures: Dispatcher [employer] EDDC Surendra Guzman MD MD rn Hall, Patricia, RN RN ph Alvarado Bhat RN RN bp
[2020-05-24 12:54] VITALS: BP 147/89; TEMP 97.8; O2SAT 99
== END 2020-05-19 16:39 | disposition home or self-care (01) ==
LOC: ER 12:44
DX: K59.00 Constipation, unspecified (principal); K40.90 Unilateral inguinal hernia, without obstruction or gangrene, not specified as recurrent; I10 Essential (primary) hypertension; G30.9 Alzheimer's disease, unspecified; F02.80 Dementia in other diseases classified elsewhere, unspecified severity, without behavioral disturbance, psychotic disturbance, mood disturbance, and anxiety
CPT/HCPCS: 96361; 93005; 85025; 80048; 36415; 80076; 83690; 74177; 96375; 96374; 99284; Q9967; J2175; J7040; J2405

== ENCOUNTER 2020-05-19 18:53 | Observation (INO) | payer OTHER ==
--- OUTSIDE RECORDS SUMMARY | 2020-05-19 18:55 | XMS REPORT | Continuity of Care Document ---
:1940 Author Organization [facility] t Address [address] [place] [address] Care Team Providers Name Role Phone Asked, [...] H clementina s dementia s dementia 12-31 [facility] thodi 00:00: st 00 Accelerate Accelerate Disease Active H clementina d d 12-31 Methodi hypertensi hypertensi 00:00: st on on Fibrositis Fibrositis Disease Active H clementina 12-31 Methodi 00:00: st 00 Inflammati Inflammati [...] Date Quantity Comments Source Sex Assigned At [facility] ethodist Alcohol intake 2016-12-31 2016-12-31 Current [facility] thodi 00:00:00 00:00:00 non-drinker of alcohol (finding) Smoking Status Start Date Stop Date Source Never smoker Sánchez Arielais Medications This patient has no known medications. Procedures This patient has no known procedures. Plan of Care Planned Activity Planned Date Details Comments Source Future Scheduled 2020-06-24 INFLUENZA VACCINE [place] [facility] 00:00:00 [code = INFLUENZA VACCINE] Future Scheduled 2007 65+ PNEUMOCOCCAL [place] [facility] 00:00:00 VACCINE (1 of 2 - PCV13) [code = 65+ PNEUMOCOCCAL VACCINE (1 of 2 - PCV13)] Future Scheduled 1992 SHINGLES VACCINES (#1) [place] [facility] 00:00:00 [code = SHINGLES VACCINES (#1)] Encounters Start End Encounter Admission Attending Care Care Encounter Source Date/Time Date/Time Type Type Clinicians Facility Department ID 2020-04-11 2020-04-11 Telephone MAGDI Haley [id number] 00:00:00 00:00:00 Patient JAVY [id number] Does Not HOSPITAL [id number] Have A [id number] 2020-04-10 2020-04-10 Telephone ShonnaMAGDI [id number] 00:00:00 00:00:00 Evaerickson [place] [id number] [facility] [id number] 2020-04-07 2020-04-07 Laboratory Lab, [facility] [id number] 07:48:20 08:08:20 Only Fam [facility] [id number] [place] [id number] Professio [phone] nal [address] One Results This patient has no known results.
--- OUTSIDE RECORDS SUMMARY | 2020-05-19 18:55 | XMS REPORT | Clinical Summary ---
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
[2020-05-19] MEDS ORDERED: NA CHLORIDE 0.9% 500 ML ONE (19:46)
[2020-05-19] MEDS ORDERED: FAMOTIDINE 20 MG/2 ML VIAL IV ONE (19:57)
[2020-05-19] MEDS ORDERED: MORPHINE 2 MG/ML SYR ONE ×2 (19:57→21:59)
[2020-05-19] MEDS ORDERED: ONDANSETRON 4 MG/2 ML VIAL ONE (19:57)
[2020-05-19 20:43] LABS: Absolute Lymphocytes (CBC) 1.3 K/uL (0.7-4.9); Basophils % 0.3 % (0-1.3); Hematocrit 41.6 % (36.0-45.0); Lymphocytes % 13.5 % (15.3-44.8); MPV 7.7 fL (7.6-11.3); RBC Red Blood Cell Count 4.72 M/uL (3.86-4.86)
[2020-05-19 21:02] LABS: Albumin 3.7 g/dL (3.4-5.0); Bilirubin Direct 0.2 mg/dL (0-0.2); Bilirubin Total 0.7 mg/dL (0.2-1.0); Potassium 3.6 mmol/L (3.5-5.1); Protein, Total 8.1 g/dL (6.4-8.2)
[2020-05-19 21:44] LABS: Urine Blood TRACE (NEG); Urine Glucose NEGATIVE (NEG); Urine Protein NEGATIVE (NEG); Urine pH 7.5 (5.0-7.0)
--- NOTE | 2020-05-19 22:40 | ER ---
Nurse's Notes [facility] Name: Yelitza Kellogg Age: 79 yrs Sex: Female : 1940 Arrival Date: 05/19/2020 Time: 18:53 Bed 5 Private MD: Diagnosis: Intractable Abdominal Pain Presentation: 05/19 19:06 Chief complaint: Spouse and/or significant other states: Mr Kellogg reports "She has jl7 been screaming for the past hour from the pain." Pt noted to be wincing and guarding abdomen, unable to say exactly where she is hurting at this time. Coronavirus screen: Client denies travel out of the [place] in the last 14 days. At this time, the client does not indicate any symptoms associated with coronavirus-19. Ebola Screen: No symptoms or risks identified at this time. Initial Sepsis Screen: Does the patient meet any 2 criteria? No. Patient's initial sepsis screen is negative. Does the patient have a suspected source of infection? No. Patient's initial sepsis screen is negative. Risk Assessment: Do you want to hurt yourself or someone else? Patient reports no desire to harm self or others. Onset of symptoms is unknown. Care prior to arrival: None. Transition of care: patient was not received from another setting of care. 19:06 Method Of Arrival: Wheelchair jl7 19:06 Acuity: ELIAS 3 jl7 Historical: - Allergies: 19:09 donepezil; jl7 - PMHx: 19:09 Alzheimers; Chronic pain; Dementia; Hypertension; jl7 - PSHx: 19:09 None; jl7 - Immunization history:: Adult Immunizations unknown. - Social history:: Smoking status: Patient denies any tobacco usage or history of. Screenin:13 Abuse screen: Denies threats or abuse. Nutritional screening: No deficits noted. ea Tuberculosis screening: No symptoms or risk factors identified. Fall Risk None identified. Assessment: 19:26 General: Appears uncomfortable, Behavior is anxious. Pain: Complains of pain in abdomen mt2 Pain currently is 10 out of 10 on a pain scale. level that patient reports is acceptable is 0 out of 10 on a pain scale. Neuro: Level of Consciousness is confused. Cardiovascular: No deficits noted. Respiratory: No deficits noted. GI: Abdomen is flat, Abd is soft and non tender. : No deficits noted. EENT: No deficits noted. Derm: No deficits noted. Musculoskeletal: No deficits noted. 20:17 Reassessment: Pt refused pain medication states "I am not hurting" . ea 20:26 Reassessment: Patient and/or family updated on plan of care and expected duration. Pain mt2 level reassessed. Patient is alert, oriented x 3, equal unlabored respirations, skin warm/dry/pink. General: Appears comfortable, Behavior is cooperative. 21:40 Reassessment: Patient and/or family updated on plan of care and expected duration. Pain mt2 level reassessed. Patient is alert, oriented x 3, equal unlabored respirations, skin warm/dry/pink. General: Appears uncomfortable, Behavior is agitated, anxious. Pain: Complains of pain in abdomen Pain currently is 10 out of 10 on a pain scale. 22:30 Reassessment: Patient and/or family updated on plan of care and expected duration. Pain ea level reassessed. Pt resting with eyes closed, respirations even and unlabored. Chest expansions even and symmetrical. 23:00 Reassessment: Patient and/or family updated on plan of care and expected duration. Pain mt2 level reassessed. Patient is alert, oriented x 3, equal unlabored respirations, skin warm/dry/pink. Patient denies pain at this time. General: Appears comfortable, Behavior is cooperative. 05/20 00:23 Reassessment: Patient and/or family updated on plan of care and expected duration. Pain mt2 level reassessed. Patient is alert, oriented x 3, equal unlabored respirations, skin warm/dry/pink. Patient denies pain at this time. General: Appears comfortable, Behavior is cooperative. Pain: Denies pain. Vital Signs: 05/19 19:06 BP 170 / 99; Pulse 75; Resp 17; Pulse Ox 100% ; jl7 20:30 BP 166 / 79; Pulse 81; Resp 16; Pulse Ox 95% on R/A; Pain 0/10; mt2 21:30 BP 156 / 91; Pulse 72; Resp 16; Pulse Ox 95% ; Pain 10/10; mt2 22:37 BP 148 / 102; Pulse 84; Resp 16; Pulse Ox 96% ; Pain 5/10; mt2 23:03 BP 108 / 57; Pulse 81; Resp 18; Pulse Ox 97% ; ea 05/20 00:23 BP 126 / 88; Pulse 78; Resp 16; Pulse Ox 96% on R/A; Pain 0/10; mt2 ED Course: 05/19 18:53 Patient arrived in ED. ag5 19:03 Rik North MD is Attending Physician. 7 19:09 Triage completed. jl7 19:09 Arm band placed on right wrist. jl7 19:13 Patient has correct armband on for positive identification. Bed in low position. Call ea light in reach. Side rails up X2. Adult w/ patient. 19:25 Renetta Berger, RN is Primary Nurse. mt2 20:14 Inserted saline lock: 24 gauge in left wrist, using aseptic technique. Missed ds4 attempt(s): 24 gauge in left antecubital area. 21:22 Abdomen Acute Series XRAY In Process Unspecified. EDMS 21:41 Urine Dipstick--Ancillary (enter results) Sent. ds4 22:39 Emperatriz Hayward MD is Hospitalizing Provider. [facility] 05/20 00:55 No provider procedures requiring assistance completed. Patient admitted, IV remains in ea place. Administered Medications: 05/19 19:44 Drug: NS 0.9% 500 ml Route: IV; Rate: bolus; Site: right wrist; mt2 21:59 Follow up: Response: No adverse reaction; IV Status: Completed infusion mt2 20:17 Not Given (Patient Refused): morphine 2 mg IVP once; (PAIN>8) RASS on ADMN: Combtv4, mt2 Very Agttd3, Agttd2, Rstlss1, AlertClm0, Drwsy-1, LtSdtn-2, ModSdtn-3, DpSdtn-4, UnArsble-5 x2 20:17 Drug: Pepcid 20 mg Route: IVP; Site: left hand; mt2 21:59 Follow up: Response: No adverse reaction; Pain is decreased mt2 20:17 Drug: Zofran (Ondansetron) 4 mg Route: IVP; Site: left hand; mt2 21:30 Follow up: Response: No adverse reaction; Pain is decreased mt2 21:52 Drug: morphine 2 mg Route: IVP; Site: left hand; mt2 22:36 Follow up: Response: No adverse reaction; Pain is decreased mt2 Outcome: 22:39 Decision to Hospitalize by Provider. 7 05/20 00:55 Condition: stable ea Instructed on the need for admit, Demonstrated understanding of instructions. 01:07 Admitted to Med/surg accompanied by tech, room 229, Report called to SHERWIN ROWE mt2 01:20 Patient left the ED. mt2 Signatures: Dispatcher [employer] EDMS Brown Deleon 4 Cherie Urbina RN RN 7 Ashley Pinon RN RN Adwoa Mercado 5 Rik North MD MD 7 Renetta Berger RN RN mt2
--- NOTE | 2020-05-19 22:40 | EDPHYS ---
Physician Documentation [facility] Name: Yelitza Kellogg Age: 79 yrs Sex: Female : 1940 Arrival Date: 05/19/2020 Time: 18:53 Bed 5 Private MD: ED Physician Rik North HPI: 05/19 19:37 This 79 yrs old Female presents to ER via Wheelchair with complaints of mh7 Abdominal Pain. 19:37 The patient presents with abdominal pain that is diffuse. Onset: The symptoms/episode mh7 began/occurred 1 week(s) ago, and became worse 1 hour(s) ago. The symptoms do not radiate. Associated signs and symptoms: Pertinent positives: nausea, Pertinent negatives: anorexia, blood in stools, chest pain, constipation, diarrhea, dysuria, fever, headache, hematuria, palpitations, shortness of breath, vaginal discharge, vomiting, vomiting blood. The symptoms are described as intermittent, vague, waxing/waning. Modifying factors: The symptoms are alleviated by nothing, the symptoms are aggravated by nothing. Severity of pain: At its worst the pain was moderate today, in the emergency department the pain is unchanged. The patient has been recently seen at the [facility] Emergency Department, today. Patient with dementia able to provide limited history but states that she has had intermittent abdominal pain for one week. She has had some nausea but no vomiting, fever, diarrhea, or dysuria. Last BM was yesterday. She was evaluated here earlier today for this complaint and was discharged home but had return of pain so brought her back to the ED.. Historical: - Allergies: 19:09 donepezil; jl7 - PMHx: 19:09 Alzheimers; Chronic pain; Dementia; Hypertension; jl7 - PSHx: 19:09 None; jl7 - Immunization history:: Adult Immunizations unknown. - Social history:: Smoking status: Patient denies any tobacco usage or history of. ROS: 19:37 Constitutional: Negative for fever, chills, and weight loss. mh7 19:45 Eyes: Negative for injury, pain, redness, and discharge, ENT: Negative for injury, mh7 pain, and discharge, Neck: Negative for injury, pain, and swelling, Cardiovascular: Negative for chest pain, palpitations, and edema, Respiratory: Negative for shortness of breath, cough, wheezing, and pleuritic chest pain, Back: Negative for injury and pain, : Negative for injury, bleeding, discharge, and swelling, MS/Extremity: Negative for injury and deformity, Skin: Negative for injury, rash, and discoloration, Neuro: Negative for headache, weakness, numbness, tingling, and seizure, Psych: Negative for depression, anxiety, suicide ideation, homicidal ideation, and hallucinations, Allergy/Immunology: Negative for hives, rash, and allergies, Endocrine: Negative for neck swelling, polydipsia, polyuria, polyphagia, and marked weight changes, Hematologic/Lymphatic: Negative for swollen nodes, abnormal bleeding, and unusual bruising. Exam: 19:45 Head/Face: Normocephalic, atraumatic. Eyes: Pupils equal round and reactive to light, mh7 extra-ocular motions intact. Lids and lashes normal. Conjunctiva and sclera are non-icteric and not injected. Cornea within normal limits. Periorbital areas with no swelling, redness, or edema. Neck: Trachea midline, no thyromegaly or masses palpated, and no cervical lymphadenopathy. Supple, full range of motion without nuchal rigidity, or vertebral point tenderness. No Meningismus. Chest/axilla: Normal chest wall appearance and motion. Nontender with no deformity. No lesions are appreciated. Cardiovascular: Regular rate and rhythm with a normal S1 and S2. No gallops, murmurs, or rubs. Normal PMI, no JVD. No pulse deficits. Respiratory: Lungs have equal breath sounds bilaterally, clear to auscultation and percussion. No rales, rhonchi or wheezes noted. No increased work of breathing, no retractions or nasal flaring. 19:45 Back: No spinal tenderness. No costovertebral tenderness. Full range of motion. Skin: Warm, dry with normal turgor. Normal color with no rashes, no lesions, and no evidence of cellulitis. MS/ Extremity: Pulses equal, no cyanosis. Neurovascular intact. Full, normal range of motion. 19:45 Constitutional: The patient appears in no acute distress, alert, awake, uncomfortable. 19:45 Abdomen/GI: Inspection: abdomen appears normal, Bowel sounds: normal, in all quadrants, Palpation: mild abdominal tenderness, in all quadrants, Indicators: McBurney's point is not tender, Marie's sign is negative, Rovsing's sign is negative, Obturator sign is negative, Psoas sign is negative, Liver: no appreciated palpable abnormalities, Hernia: none palpable. 19:48 Neuro: mh7 19:49 Neuro: Orientation: to person, place, situation, Mentation: is normal, Cranial nerves: mh7 grossly normal, Cerebellar function: is grossly normal, Motor: is normal, Sensation: is normal, seizure activity, is not displayed by the patient, Abnormal movements: there are no abnormal movements. 19:49 Psych: Behavior/mood is pleasant, cooperative, Affect is calm. 20:15 Abdomen/GI: Rectal exam: rectal tone normal, Stool: brown, guaiac negative, mh7 hemorrhoid(s), external, without bleeding, without inflammation, without thrombosis, without pain, mass, is not appreciated, swelling, is not appreciated, tenderness, is not appreciated, fecal impaction, is not appreciated. 20:16 ECG was reviewed by the Attending Physician. [facility] Vital Signs: 19:06 BP 170 / 99; Pulse 75; Resp 17; Pulse Ox 100% ; jl7 20:30 BP 166 / 79; Pulse 81; Resp 16; Pulse Ox 95% on R/A; Pain 0/10; mt2 21:30 BP 156 / 91; Pulse 72; Resp 16; Pulse Ox 95% ; Pain 10/10; mt2 22:37 BP 148 / 102; Pulse 84; Resp 16; Pulse Ox 96% ; Pain 5/10; mt2 23:03 BP 108 / 57; Pulse 81; Resp 18; Pulse Ox 97% ; ea 05/20 00:23 BP 126 / 88; Pulse 78; Resp 16; Pulse Ox 96% on R/A; Pain 0/10; mt2 MDM: 05/19 19:28 Patient medically screened. [facility] 22:36 Differential diagnosis: appendicitis, bowel obstruction, cholecystitis, Cholelithiasis, [facility] diverticulitis, gastritis, gastroesophageal reflux disease, Mesenteric ischemia or infarction, myocardia ischemia or infarction, non-specific abd pain, pancreatitis, Peptic Ulcer Disease, Perf. Duodenal Ulcer, Perf. Gastric Ulcer, Pyelonephritis, Ureterolithiasis, urinary tract infection. Data reviewed: vital signs, nurses notes, old medical records, lab test result(s), CBC, electrolytes, urinalysis, EKG, radiologic studies, plain films. Data interpreted: Pulse oximetry: on room air is 95 %. Interpretation: normal. Counseling: I had a detailed discussion with the patient and/or guardian regarding: the historical points, exam findings, and any diagnostic results supporting the discharge/admit diagnosis, the presence of at least one elevated blood pressure reading (>120/80) during this emergency department visit, lab results, radiology results, the need for further work-up and treatment in the hospital. Response to treatment: the patient's symptoms have markedly improved after treatment. 05/19 19:33 Order name: Basic Metabolic Panel; Complete Time: 21:15 [facility] 05/19 19:33 Order name: CBC with Diff; Complete Time: 20:45 [facility] 05/19 19:33 Order name: Hepatic Function; Complete Time: 21:15 [facility] 05/19 19:33 Order name: Lipase; Complete Time: 21:15 [facility] 05/19 20:09 Order name: Lactate; Complete Time: 21:15 [facility] 05/19 21:37 Order name: Urine Dipstick--Ancillary (enter results); Complete Time: 22:32 ds4 05/19 23:06 Order name: COVID-19 ar5 05/19 23:22 Order name: Urinalysis [facility] 05/19 23:22 Order name: Basic Metabolic Panel [facility] 05/19 23:22 Order name: Basic Metabolic Panel; Complete Time: 07:01 [facility] 05/19 23:22 Order name: CBC with Automated Diff [facility] 05/19 23:22 Order name: CBC with Automated Diff [facility] 05/19 23:22 Order name: Magnesium [facility] 05/19 19:33 Order name: IV Saline Lock; Complete Time: 20:17 [facility] 05/19 19:33 Order name: Labs collected and sent; Complete Time: 20:27 [facility] 05/19 19:33 Order name: EKG - Nurse/Tech; Complete Time: 19:43 [facility] 05/19 19:33 Order name: Urine Dipstick-Ancillary (obtain specimen); Complete Time: 21:35 [facility] 05/19 20:09 Order name: Abdomen Acute Series XRAY [facility] 05/19 23:22 Order name: Full Liquid [facility] 05/19 23:22 Order name: Magnesium; Complete Time: 07:01 [facility] 05/19 23:24 Order name: C-Reactive Protein; Complete Time: 07:01 [facility] 05/19 23:24 Order name: Ferritin; Complete Time: 07:01 [facility] 05/19 23:24 Order name: Procalcitonin [facility] 05/20 00:42 Order name: SARS-COV-2 RT PCR; Complete Time: 07:01 [facility] EC:16 Rate is 77 beats/min. Rhythm is regular, Normal Sinus Rhythm. QRS Luck is Normal. ID mh7 interval is normal. QRS interval is normal. QT interval is normal. No Q waves. T waves are Normal. No ST changes noted. Clinical impression: Normal ECG. Administered Medications: 19:44 Drug: NS 0.9% 500 ml Route: IV; Rate: bolus; Site: right wrist; mt2 21:59 Follow up: Response: No adverse reaction; IV Status: Completed infusion mt2 20:17 Not Given (Patient Refused): morphine 2 mg IVP once; (PAIN>8) RASS on ADMN: Combtv4, mt2 Very Agttd3, Agttd2, Rstlss1, AlertClm0, Drwsy-1, LtSdtn-2, ModSdtn-3, DpSdtn-4, UnArsble-5 x2 20:17 Drug: Pepcid 20 mg Route: IVP; Site: left hand; mt2 21:59 Follow up: Response: No adverse reaction; Pain is decreased mt2 20:17 Drug: Zofran (Ondansetron) 4 mg Route: IVP; Site: left hand; mt2 21:30 Follow up: Response: No adverse reaction; Pain is decreased mt2 21:52 Drug: morphine 2 mg Route: IVP; Site: left hand; mt2 22:36 Follow up: Response: No adverse reaction; Pain is decreased mt2 Disposition: 05/20 06:45 Co-signature as Attending Physician, Rik North MD. [facility] Disposition: 05/19/20 22:39 Hospitalization ordered by Emperatriz Hayward for Observation. Preliminary diagnosis is Intractable Abdominal Pain. - Bed requested for Telemetry/MedSurg (observation). - Status is Observation. mt2 - Condition is Stable. - Problem is an ongoing problem. - Symptoms have improved. Signatures: Dispatcher [employer] EDMS Surendra Guzman MD MD rn Lasagna, Tonya RN RN tl1 Cherie Urbina RN RN 7 Rik North MD MD 7 Renetta Berger RN RN mt2 Corrections: (The following items were deleted from the chart) 05/19 23:29 23:07 CORONAVIRUS ordered. [facility] 05/20 00:46 05/19 22:39 Hospitalization Ordered by Emperatriz Hayward MD for Observation. Preliminary tl1 diagnosis is Intractable Abdominal Pain. Bed requested for Telemetry/MedSurg (observation). Status is Observation. Condition is Stable. Problem is an ongoing problem. Symptoms have improved. [facility] 05/20 01:20 00:46 05/19/2020 22:39 Hospitalization Ordered by Emperatriz Hayward MD for Observation. mt2 Preliminary diagnosis is Intractable Abdominal Pain. Bed requested for Telemetry/MedSurg (observation). Status is Observation. Condition is Stable. Problem is an ongoing problem. Symptoms have improved. tl1
[2020-05-19] MEDS ORDERED: ONDANSETRON 4 MG/2 ML VIAL IV PRN (23:19)
[2020-05-19] MEDS ORDERED: DOCUSATE NA/SENNA CONC 1 TAB PO PRN ×2 (23:26→23:27)
--- NOTE | 2020-05-19 23:31 | P.HP ---
Certification for Inpatient Patient admitted to: Observation With expected LOS: <2 Midnights Patient will require the following post-hospital care: None Practitioner: I am a practitioner with admitting privileges, knowledge of patient current condition, hospital course, and medical plan of care. Services: Services provided to patient in accordance with Admission requirements found in Title 42 Section 412.3 of the Code of Federal Regulations <Artem Rogers - Last Filed: 05/19/20 23:25> Patient History Date of Service: 05/19/20 Reason for admission: Gastroenteritis/abdominal pain History of Present Illness: 79-year-old female with a past medical history of advanced Alzheimer's dementia, chronic pain and hypertension presents to the emergency room for the 2nd time today with complaints of abdominal pain. Patient was seen earlier in the day and discharged home. She returns today brought by her with continued abdominal pain. CT abdomen pelvis on original admission showed no acute pathology. There was evidence of a small inguinal hernia that was reduced. Follow-up CT abdomen pelvis preliminary report shows successful reduction of small heart hernia and no other acute pathology. Patient has advanced dimension and is a poor historian. Has limited information In the emergency room patient is calm. She is pleasant and cooperative. In no distress. Alert and oriented to person and place. States her abdominal pain is better after pain medication. states the patient has a history of constipation and some abdominal discomfort but never like this. She is not on a bowel regimen. She did test positive for Covid 6 weeks ago. Has been in isolation since. Denies trauma, urinary symptoms, no blood in stool. No fever no vomiting and no diarrhea. Last bowel movement yesterday. Patient will be placed in observation and further evaluate. Home medications list reviewed: No - Past Medical/Surgical History Diabetic: No -: Alzheimers, Neuropathy, Hypertension -: neuropathy -: hypertenison-not on medication -: left foot surg - 3-5 yrs ago Psychosocial/ Personal History: Lives at home with her - Family History Family History: Reviewed- Non-Contributory - Social History Smoking Status: Never smoker Alcohol use: No CD- Drugs: No Caffeine use: No Place of Residence: Home <Artem Rogers - Last Filed: 05/19/20 23:25> Date of Service: 05/20/20 <Emperatriz Hayward - Last Filed: 05/21/20 10:46> Allergies donepezil HCl [From Aricept] Allergy (Severe, Verified 05/20/20 01:46) muscle spasms Home Medications: Codeine/APAP [Tylenol W/Codeine #3 tab] 1 tab PO Q6HP PRN #20 tab 05/21/20 Review of Systems General: As per HPI Eyes: Unremarkable ENT: Unremarkable Respiratory: Unremarkable Cardiovascular: Unremarkable Gastrointestinal: Abdominal Pain, As per HPI Genitourinary: Unremarkable Musculoskeletal: Unremarkable Neurological: Confusion (Alzheimer's dementia), As per HPI Lymphatics: Unremarkable <Artem Rogers - Last Filed: 05/19/20 23:25> Physical Examination - Physical Exam General: Alert, In no apparent distress, Oriented x2, Confused (Alzheimer's dementia) HEENT: Atraumatic, Normocephalic, PERRLA, Mucous membr. moist/pink Neck: Supple, Other (Trachea midline) Respiratory: Clear to auscultation bilaterally, Normal air movement Cardiovascular: No edema, Normal pulses, Regular rate/rhythm, Normal S1 S2 Capillary refill: <2 Seconds Gastrointestinal: Normal bowel sounds, Soft and benign, Tenderness (Diffuse in all quads, mild tenderness with palpation in all quadrants) Musculoskeletal: No clubbing, No swelling, No contractures, No erythema, No tenderness Integumentary: No rashes, No breakdown, No significant lesion, No ten derness/swelling Neurological: Normal gait, Normal speech, Normal strength at 5/5 x4 extr, Normal tone - Studies Laboratory Data (last 24 hrs) 05/19/20 20:26: WBC 9.4 D, Hgb 13.9, Hct 41.6, Plt Count 245 05/19/20 20:26: Sodium 140, Potassium 3.6, BUN 9, Creatinine 0.73, Glucose 114 H, Total Bilirubin 0.7, AST 18, ALT 22, Alkaline Phosphatase 99, Lipase 48 L <Artem Rogers - Last Filed: 05/19/20 23:25> Assessment and Plan - Plan Impression: Abdominal pain likely secondary to gastroenteritis with a history of chronic constipation: Advanced Alzheimer's dementia: Essential hypertension: Plan: Abdominal pain likely secondary to gastroenteritis with a history of chronic constipation: CT abdomen pelvis x2 with no significant pathology. There was a small left inguinal hernia that was reduced and on follow-up CT does not appear to be there. No evidence of obstruction. Patient did test positive for Covid 6 weeks ago. White cell count within normal limits. Lab work in the ER fairly unremarkable. Will start IV hydration. Continue IV morphine. Continuous telemetry. Will order CRP, procalcitonin and ferritin for the morning. Patient does not appear septic. Vitals are stable. Advanced Alzheimer's dementia: at bedside. Patient is at baseline. Pleasant and cooperative. Essential hypertension: Will resume all medications once verified. Discharge Plan: Home Plan to discharge in: 48 Hours - Advance Directives Does patient have a Living Will: No Does patient have a Durable POA for Healthcare: No - Code Status/Comfort Care Code Status Assessed: Yes Time Spent Managing Pts Care (In Minutes): 55 <Artem Rogers - Last Filed: 05/19/20 23:25> Date of Service: 05/20/20 PATIENT WAS ADMITTED WITH ABDOMINAL PAIN AND DELIRIUM. PATIENT BEEN HAVING SOME ABDOMINAL DISCOMFORT FOR QUITE A WHILE. PATIENT SEEN BY GENERAL SURGERY AND WAS FELT PATIENT MAY HAVE HERNIA THAT NEEDS REPAIR. PHYSICAL EXAM: VITALS: REVIEWED PATIENT IS CONFUSED BUT FOLLOWS SOME COMMANDS CARDIOVASCULAR: REGULAR RATE RHYTHM NO MURMUR LUNGS: CLEAR BILATERALLY ABDOMEN: SOFT, SLIGHTLY TENDER IN THE FLANK REGION ASSESSMENT: 1. ABDOMINAL PAIN 2. DEMENTIA 3. DELIRIUM PLAN: 1. GENERAL SURGERY TO TAKE PATIENT TO OR FOR HERNIA REPAIR 2. MEDICATION FOR DELIRIUM 3. GI AND DVT PROPHYLAXIS <Emperatriz Hayward - Last Filed: 05/21/20 10:46>
[2020-05-19] MEDS: NA CHLORIDE 0.9% 1,000 ML IV SCH (23:45)
[2020-05-20] MEDS: NA CHLORIDE 0.9% 1,000 ML IV SCH ×3 (01:46→19:45)
[2020-05-20 01:49] VITALS: BMI 24.0
[2020-05-20] MEDS: MORPHINE 2 MG/ML SYR IV PRN ×3 (02:20→16:37)
[2020-05-20 05:57] LABS: Absolute Lymphocytes (CBC) 0.8 K/uL (0.7-4.9); Basophils % 0.2 % (0-1.3); Lymphocytes % 7.4 % (15.3-44.8); RBC Red Blood Cell Count 4.65 M/uL (3.86-4.86)
[2020-05-20 06:20] LABS: BUN Blood Urea Nitrogen 8 mg/dL (7-18); Bicarbonate 26 mmol/L (21-32); C-Reactive Protein 4.83 mg/L (<3.00); Ferritin 108.6 ng/mL (8-388); Glucose Level 142 mg/dL (74-106); Magnesium 2.1 mg/dL (1.8-2.4); Potassium 3.6 mmol/L (3.5-5.1); Sodium Level 137 mmol/L (136-145)
[2020-05-20 07:03] LABS: Blood Morphology Comment NOT SEEN (NOT SEEN); Platelet Estimate ADEQ
[2020-05-20] MEDS: ENOXAPARIN 40 MG/0.4 ML SQ SCH (08:12)
[2020-05-20] MEDS ORDERED: WATER FOR INJ,STERILE 10 ML IM PRN (08:24)
[2020-05-20] MEDS ORDERED: ZIPRASIDONE MESYLA 20 MG/VIAL IM ONE (08:24)
[2020-05-20] MEDS ORDERED: BUPIVACA 0.25%/EPI 0.0005%/PF 30 ML VIAL ONE ×2 (11:30→12:31)
--- NOTE | 2020-05-20 11:43 | CON ---
Date of Consultation: 05/20/2020 Brief History Of Present Illness: The patient is a 79-year-old female with a past medical history of advanced Alzheimer's dementia, chronic pain and hypertension, who presents to the emergenc y room for the second time within 24 hours with complaints of abdominal pain, predominantly left lowe r quadrant and generalized abdominal pain. She was seen earlier in the day with complaints of abdomi nal pain and tenderness in the left lower quadrant, which turned out to be a hernia. Dr. Guzman was a ble to successfully reduce this hernia in the emergency room and as such, she was sent home with inst ructions to follow up with me today for re-examination as she had significant symptomatic improvement after the reduction. However, she returned several hours later with complaints of recurrent abdomin al pain. The patient is unable to give me much of the information as such much of the information is obtained from the chart. However, she is pleasant, cooperative, appears to be quite uncomfortable d uring my examination, moaning at times. She did test positive for COVID 6 weeks ago, she has been is olation since. She has had no fever, nausea, vomiting, and diarrhea. Last bowel movement was yester day. Past Medical History: Significant for Alzheimer's dementia, chronic pain, hypertension, neuropathy. Past Surgical History: She has had left foot surgery. She has had a pelvic surgery with Dr. Forrest goyal, which was on 05/15/2019, approximately 1 year ago and she had an anterior repair due to a signific ant anterior wall prolapse. She had a mid urethral sling and cystoscopy, posterior repair, enterocel e repair, right sacrospinous ligament fixation, colpopexy and perineorrhaphy. Social History: She lives at home with her . Denies smoking, alcohol, or recreational drug u se. Review of Systems: Ten-point review of systems other than HPI, denies. Allergies: TO DONEPEZIL. Medications: Home medications include aspirin, progesterone cream, Norvasc, Colace, and ensure. Physical Examination: Vital Signs: At the time of my examination her BMI is 24. Her vital signs were temperature 98.1, pu lse rate was 83, respiratory rate 18, blood pressure 163/84, SpO2 97% on room air. General: She is awake and alert, but has poor insight into her past medical history. She appears un comfortable during my examination, occasionally moaning. HEENT: She is otherwise normocephalic. Her sclerae were anicteric. Mucous membranes are moist. Or opharynx clear. Neck: Supple. No JVD. Chest: Normal expansion and excursion. Cardiovascular: Regular rate and rhythm. Pulmonary: Clear to auscultation bilaterally. Abdomen: Soft, but she does have global tenderness to palpation, worse in the suprapubic area and le ft lower quadrant. There appears to be recurrence of this inguinal hernia on the left inguinal regio n. It is very tender to palpation and I am unable to reduce due to the patient has a significant malathi n at this time. Extremities: No clubbing, cyanosis, or edema. Skin: Warm and dry. Laboratory Data: Reveals a white blood count of 10.6, hemoglobin is 13.6, hematocrit of 41.0, platel et count 261, neutrophils are 88%. Her sodium 137, potassium 3.6, chloride 105, carbon dioxide 26, B UN 8, creatinine 0.6, glucose is 142. Lactic acid yesterday was 1.6. C-reactive protein is 4.8 toda y. Procalcitonin is less than 0.05 today. Her UA only had trace blood, 1+ ketones. She had imaging performed yesterday, which was a CT scan of the abdomen and pelvis which was officially read at that time as small left inguinal hernia contains a portion of small bowel. Small bowel caliber upper mari its normal at that time. She had an acute abdominal series today, which showed nonobstructive bowel gas pattern and moderate stool. Assessment And Plan: This is a 79-year-old female, who comes in with recurrent inguinal hernia, tend erness and pain on the left. 1.IV fluid hydration. 2.Medical management. 3.I have explained the risks, benefits, and alternatives of open left inguinal hernia repair with me sh including but not limited to bleeding, infection, damage to surrounding tissues, recurrence, need for further operation procedures to her and the patient. They agreed to proceed as indicated. Thank you for this interesting consult. MICHELLE/LASHONDA Voice ID: [id number] Report ID: [id number]
--- NOTE | 2020-05-20 11:59 | RAD REPORT ---
EXAM DESCRIPTION: RAD - Abdomen Acute Series - 05/19/2020 9:22 pm CLINICAL HISTORY: ABD PAIN TECHNIQUE: Two views of the abdomen and frontal view of the chest are submitted. COMPARISON: Chest x-ray dated 05/17/2019 FINDINGS: Heart: The cardiac silhouette is within normal limits. Lungs: Hyperinflation. No focal consolidation. Mediastinum: Thoracic aortic atherosclerosis. Pleura: Unremarkable Bowel: Moderate stool. Gas is seen throughout the large bowel to the level of the rectum. No dilation . Calcifications: None Bones: Lumbar levoscoliosis and multilevel spondylosis. No acute fracture. Other: Surgical clips project over the right upper quadrant. Atherosclerotic disease. Excreted contra st is present within the urinary bladder. IMPRESSION: Nonobstructive bowel gas pattern. Moderate stool. Electronically signed by: Benjamin Jolly MD 05/19/2020 10:01 PM CDT Due to temporary technical issues with the PACS/Fluency reporting system, reports are being signed by the in house radiologist without review as a courtesy to ensure prompt reporting. The interpreting r adiologist is fully responsible for the content of the report.
[2020-05-20] MEDS: PIPER/TAZO/NS 3.375gm 3.375 GM/100 ML BAG IVPB SCH ×2 (12:20→16:31)
[2020-05-20] MEDS ORDERED: GLYCOPYRROLATE 0.2 MG/ML SYR ONE (12:38)
[2020-05-20] MEDS ORDERED: MIDAZOLAM HCL 2 MG/2 ML INJ ONE (12:38)
[2020-05-20] MEDS ORDERED: ONDANSETRON 4 MG/2 ML VIAL ONE (12:38)
[2020-05-20] MEDS ORDERED: FENTANYL CITR 100 MCG/2 ML ONE (12:38)
[2020-05-20] MEDS ORDERED: propofoL 200 MG/20 ML VIAL IV ONE (12:38)
[2020-05-20] MEDS ORDERED: dexAMETHasone 4 MG/ML VIAL ONE (12:39)
[2020-05-20] MEDS ORDERED: ROCURONIUM 50 MG/5 ML VIAL IV ONE (12:39)
[2020-05-20] MEDS ORDERED: KETOROLAC 30 MG/ML INJ ONE (12:39)
[2020-05-20] MEDS ORDERED: MORPHINE 10 MG/ML VIAL ONE (12:39)
[2020-05-20] MEDS ORDERED: LIDOCAINE 1% MPF 5 ML VIAL ONE (12:39)
[2020-05-20] MEDS ORDERED: NEOSTIGMINE 1 MG/ML -5 ML ONE (12:41)
--- NOTE | 2020-05-20 14:07 | P.OP ---
Corporate Travel Coordinator: Emily Courtney Preoperative diagnosis: LEFT inguinal Hernia Postoperative diagnosis: LEFT inguinal and Femoral Hernias Primary procedure: Open LEFT Inguinal Hernia with Mesh Secondary procedure: Open LEFT Femoral Hernia Repair with Mesh Anesthesia: GETA + Local Estimated blood loss: <10cc Specimen: None Findings: Incarcerated Femoral Hernia, LEFT inguinal hernia Complications: None Implants: Bard Perfix Plug and Patch Transferred to: Recovery Room Condition: Good
[2020-05-20 15:10] VITALS: O2SAT 96
[2020-05-20] MEDS ORDERED: NA CHLORIDE 0.9% 1,000 ML ONE (15:38)
[2020-05-20] MEDS ORDERED: KCL 20 MEQ/100 mL IVPB 20 MEQ/100 ML BAG IV SCH (20:00)
--- NOTE | 2020-05-20 23:10 | OP ---
Date of Procedure: 05/20/2020 Surgeon: Venkatesh Hendrix MD, Preoperative Diagnosis: Left inguinal hernia. Postoperative Diagnosis: Left inguinal and femoral hernia. Procedures: 1.Open left inguinal hernia repair with mesh. 2.Open left femoral hernia repair with mesh. Anesthesia: General endotracheal plus local with 0.25% Marcaine with epinephrine. Estimated Blood Loss: 10 cc. Specimen: None. Findings: Incarcerated femoral hernia and a reducible left inguinal hernia. Complications: None. Implants: Bard PerFix plug and patch system. Disposition: Transferred to recovery room in good condition. Procedure In Detail: After informed consent was obtained from the patient's , the patient was brought to the operating room, prepped and draped in the usual sterile fashion. After adequate anes thesia was achieved, an area of left inguinal crease was incised. There was no palpable hernia defec t at this point as the patient had her hernia manually reduced in the emergency room and she did have some fullness to the left groin and inguinal area, but no obvious hernia defects. I incised down th rough the skin in an inguinal incision somewhat lower than normal, anticipating a possible femoral he rnia as the patient is female and I visualized the hernia on the CT and found that it could have been consistent with femoral hernia preoperatively. Therefore, I dissected down through Camper's fat and Rafael's fascia to expose the external oblique aponeurosis. I palpated on top of the external obliq ue aponeurosis and found area of softness and weakness consistent with an inguinal hernia in this are a through a likely indirect defect. I additionally palpated inferior to the external oblique aponeur osis and found a small bulge in the inguinal area consistent with a possible femoral hernia, but she did have some regional lymphadenopathy. As such, it was difficult to ascertain if this is an inguina l hernia in fact or a femoral hernia. As such, I continued my dissection down through the tissues of the femoral area to expose the femoral canal. At this point, I found a hernia sac with a small loop of bowel consistent with a Connell's type hernia in the femoral canal. I then was able to place the patient in Trendelenburg and I was able to reduce the loop of bowel, which appeared viable at this p oint, back in the preperitoneal in normal anatomic space along with its concomitant preperitoneal fat . At this point, I placed 1 finger into the defect of the femoral canal and sized a Bard PerFix plug appropriately by trimming it down to size and placed it into the femoral hernia defect. I then proc eeded to close the hernia defect at this point. I did a repair by repairing the conjoint tendon, sut uring to the iliopectineal ligament with interrupted sutures using 3-0 Prolene suture over the top of the patch system at this point. After this was complete, I irrigated the area and found it to be in tact without narrowing of any of the vasculature. I then opted to repair the left inguinal hernia as well as there appeared to be a defect here as well. I made a small tariq incision in the external ob lique aponeurosis, and using Metzenbaum scissors, I opened in its entirety to protect the ilioinguina l nerve. The ilioinguinal nerve was placed inferiorly under the defect and the round ligament was di ssected circumferentially and found to be small. There was a defect medial to this consistent with a n indirect inguinal hernia. As such, I brought a hernia patch onto the field, hydrated it appropriat jocelyn, and secured it under the round ligament onto the shelving edge on the medial and lateral aspect of the internal oblique fascia and the undersurface of the inguinal ligament. After this was secured , I trimmed the mesh and placed it into the normal anatomic position to reconstitute the inguinal rin g using an interrupted 0 PDS suture on the medial and lateral shelving edges and it was secured to th e pubic tubercle on the medial inferior aspect. After this was completed, I irrigated the area once again and then inspected the area. Good hemostasis was achieved. I then proceeded to close the exte rnal oblique aponeurosis over the top using a 3-0 Vicryl suture in a running fashion. I then irrigat ed the area once again and closed the Camper's fat and Rafael's fascia over the top of the incision e n bloc using a running 3-0 Vicryl suture. The skin was once again cleansed and closed with a 4-0 Mon ocryl in a running fashion. Dermabond was placed over top. The patient tolerated the procedure well without evidence of complication, transferred in good condition. All counts were correct at the end of the case. TK/MODL Voice ID: [id number] Report ID: [id number]
[2020-05-21] MEDS: PIPER/TAZO/NS 3.375gm 3.375 GM/100 ML BAG IVPB SCH ×2 (00:45→08:39)
[2020-05-21] MEDS: NA CHLORIDE 0.9% 1,000 ML IV SCH (05:45)
[2020-05-21 06:17] LABS: Absolute Lymphocytes (CBC) 1.7 K/uL (0.7-4.9); Basophils % 0.4 % (0-1.3); Hematocrit 37.9 % (36.0-45.0); Lymphocytes % 19.9 % (15.3-44.8); MPV 8.5 fL (7.6-11.3); RBC Red Blood Cell Count 4.26 M/uL (3.86-4.86)
[2020-05-21 06:45] LABS: Potassium 3.9 mmol/L (3.5-5.1)
[2020-05-21] MEDS ORDERED: KCL 20 MEQ/100 mL IVPB 20 MEQ/100 ML BAG IV SCH (08:00)
[2020-05-21] MEDS: ENOXAPARIN 40 MG/0.4 ML SQ SCH (08:39)
[2020-05-21 08:58] VITALS: BP 143/67; TEMP 97.7
[2020-05-21] MEDS: MORPHINE 2 MG/ML SYR IV PRN (10:38)
--- NOTE | 2020-05-21 10:48 | P.PN ---
Subjective Date of Service: 05/20/20 PATIENT IS SEEN BY GENERAL SURGERY AND TAKEN TO THE OR FOR HERNIA REPAIR A CAUSE OF ABDOMINAL PAIN Review of Systems 10-point ROS is otherwise unremarkable Physical Examination - Vital Signs Temperature: 97.7 F Blood Pressure: 143/67 Pulse: 76 Respirations: 15 Pulse Ox (%): 98 - Physical Exam General: Alert, In no apparent distress, Oriented x3 Respiratory: Clear to auscultation bilaterally, Normal air movement Cardiovascular: Regular rate/rhythm, Normal S1 S2, No murmurs Gastrointestinal: Normal bowel sounds, Soft and benign, Non-distended, Tenderness, Rebound, Guarding Neurological: Normal tone, Sensation intact, Cranial nerves 3-12 intact Lymphatics: No axilla or inguinal lymphadenopathy - Studies Medications List Reviewed: Yes Assessment & Plan - Problems (Diagnosis) (1) Presenile dementia with acute confusional state Current Visit: Yes Status: Acute (2) Acute delirium Current Visit: Yes Status: Acute (3) Abdominal pain Current Visit: Yes Status: Acute (4) Abdominal hernia Current Visit: Yes Status: Acute - Plan PLAN: 1. SCHEDULE DID TAKE PATIENT TO THE OPERATING ROOM TODAY 2. MEDICATION FOR DEMENTIA OR DELIRIUM 3. DC HOME AFTER SURGERY Discharge Plan: Home Plan to discharge in: 24 Hours - Advance Directives Does patient have a Living Will: No Does patient have a Durable POA for Healthcare: No - Code Status/Comfort Care Code Status Assessed: Yes Code Status: Full Code Critical Care: No Time Spent Managing PTS Care (In Minutes): 30
--- NOTE | 2020-05-21 10:49 | P.DS ---
Discharge Date: 05/21/20 Disposition: ROUTINE DISCHARGE Discharge Condition: GOOD Reason for Admission: Gastroenteritis/abdominal pain Consultations: GENERAL SURGERY - Problems (1) Presenile dementia with acute confusional state Current Visit: Yes Status: Acute (2) Acute delirium Current Visit: Yes Status: Acute (3) Abdominal pain Current Visit: Yes Status: Acute (4) Abdominal hernia Current Visit: Yes Status: Acute Brief History of Present Illness: PATIENT IS A 79-YEAR-OLD FEMALE CAME TO THE HOSPITAL WITH ABDOMINAL PAIN AND DELIRIUM. PATIENT WAS ADMITTED FOR FURTHER EVALUATION. Hospital Course: ON FURTHER TREATMENT IT WAS FOUND THAT PATIENT HAD A HERNIA. PATIENT WAS TAKEN TO THE OPERATING ROOM FOR HERNIA REPAIR. PATIENT'S DELIRIUM REMAINED THROUGHOUT THE HOSPITALIZATION. WE WENT AHEAD AND TALKED TO FAMILY AND ARRANGED FOR DISCHARGE HOME. Vital Signs/Physical Exam: Temp Pulse Resp BP Pulse Ox 97.7 F 76 15 143/67 H 98 05/21/20 10:48 05/21/20 10:48 05/21/20 10:48 05/21/20 10:48 05/21/20 10:48 General: Alert, In no apparent distress, Demented Laboratory Data at Discharge: WBC 8.5 K/uL (4.3-10.9) D 05/21/20 05:19 Hgb 12.5 g/dL (12.0-15.0) 05/21/20 05:19 Hct 37.9 % (36.0-45.0) 05/21/20 05:19 Plt Count 232 K/uL (152-406) 05/21/20 05:19 Sodium 143 mmol/L (136-145) 05/21/20 05:19 Potassium 3.9 mmol/L (3.5-5.1) 05/21/20 05:19 BUN 9 mg/dL (7-18) 05/21/20 05:19 Creatinine 0.76 mg/dL (0.55-1.3) 05/21/20 05:19 Glucose 92 mg/dL (74-106) 05/21/20 05:19 Magnesium 2.1 mg/dL (1.8-2.4) 05/20/20 05:19 Total Bilirubin 0.7 mg/dL (0.2-1.0) 05/19/20 20:26 AST 18 U/L (15-37) 05/19/20 20:26 ALT 22 U/L (12-78) 05/19/20 20:26 Alkaline Phosphatase 99 U/L (45-117) 05/19/20 20:26 Lipase 48 U/L (73-393) L 05/19/20 20:26 Home Medications: Codeine/APAP [Tylenol W/Codeine #3 tab] 1 tab PO Q6HP PRN #20 tab 05/21/20 New Medications: Codeine/APAP [Tylenol W/Codeine #3 tab] 1 tab PO Q6HP PRN #20 tab PRN Reason: Pain Patient Discharge Instructions: OK TO DC IV AND DC HOME. FOLLOW-UP WITH PRIMARY CARE PROVIDER IN 1-2 WEEKS. FOLLOW-UP WITH SURGERY IN 1-2 WEEKS. PLEASE PURCHASE SPANDEX TO COVER HERNIA AREA. RETURN TO THE ER IF symptoms worsen. CALL or TEXT DR. COLLADO AT [phone] IF ANY QUESTIONS REGARDING HOSPITAL STAY. PLEASE CALL THE FLOOR AT [phone] IF ANY MEDICATION OR NURSING QUESTIONS. Diet: Regular Activity: Fall precautions Time spent managing pt's care (in minutes): 25
== END 2020-05-21 11:29 | disposition home or self-care (01) ==
LOC: ER 18:53 → ERHOLD 23:18 → 2ND 05-20 00:49
PROVIDERS: ADMIT Hospitalist; ATTEND Hospitalist
PROC: 0YU80JZ Supplement Left Femoral Region with Synthetic Substitute, Open Approach (ICD-10-PCS; 2020-05-20)
PROC: 0YU60JZ Supplement Left Inguinal Region with Synthetic Substitute, Open Approach (ICD-10-PCS; principal; 2020-05-20 13:45)
DX: K40.91 Unilateral inguinal hernia, without obstruction or gangrene, recurrent (principal); K41.30 Unilateral femoral hernia, with obstruction, without gangrene, not specified as recurrent; G30.0 Alzheimer's disease with early onset; F02.80 Dementia in other diseases classified elsewhere, unspecified severity, without behavioral disturbance, psychotic disturbance, mood disturbance, and anxiety; F05 Delirium due to known physiological condition; I10 Essential (primary) hypertension; Z20.828 Contact with and (suspected) exposure to other viral communicable diseases; G62.9 Polyneuropathy, unspecified; G89.29 Other chronic pain; Z86.19 Personal history of other infectious and parasitic diseases; Z79.82 Long term (current) use of aspirin; Z79.899 Other long term (current) drug therapy
CPT/HCPCS: 96361; 85025 ×3; 80048 ×3; 36415 ×2; 83735; 80076; 83605 ×2; 81003; 82728; 83690; 84145; 86140; 74022; 96375; 96374; 99285; 49520; 49553; U0003; J2704; J3480 ×2; J1650 ×2; J2250; J3010; J2543; J2270 ×6; J2710; G0378 ×4; J7040; J7030 ×4; J2405 ×3

== ENCOUNTER 2020-11-18 18:41 | Emergency (ER) | payer OTHER ==
--- OUTSIDE RECORDS SUMMARY | 2020-11-18 18:43 | XMS REPORT | Continuity of Care Document ---
:[address] [facility] t Address [address] [place] [address] Care Team Providers Name Role Phone Asked, Pcp Primary Care Physician Unavailable Pcp, Does Not Have A Attending Clinician Shonna JO, Jack Attending Clinician Lab, Fam Pob I Attending Clinician Unavailable Problems Condition Condition Condition Status Onset Resolution Last Treating Co mments Source Name Details Category Date Date Treatment Clinician Date Blood loss Blood loss Disease Active [facility] anemia anemia 12-31 Methodi 00:00: st 00 Hyponatrem Hyponatrem Disease Active 0 H clementina ia ia 12-31 Methodi 00:00: st 00 Alzheimer' Alzheimer' Disease Active 2017-0 H clementina s dementia s dementia 12-31 Nc thodi 00:00: st 00 Accelerate Accelerate Disease Active H clementina d d 12-31 Methodi hypertensi hypertensi 00:00: st on on Fibrositis Fibrositis Disease Active 2017-0 H clementina 12-31 Methodi 00:00: st 00 Inflammati Inflammati Disease Active 2016-0 H clementina of on of 12-31 Methodi sacroiliac sacroiliac 00:00: st joint joint 00 Allergies, Adverse Reactions, Alerts This patient has no known allergies or adverse reactions. Social History Social Habit Start Date Stop Date Quantity Comments Source Sex Assigned At [facility] ethodist Alcohol intake 2016-12-31 2016-12-31 Current [facility]odist 00:00:00 00:00:00 non-drinker of alcohol (finding) Smoking Status Start Date Stop Date Source Never smoker S[facility]el[facility] Medications This patient has no known medications. Procedures This patient has no known procedures. Plan of Care Planned Activity Planned Date Details Comments Source Future Scheduled 2020-04-24 INFLUENZA VACCINE [place] [facility] 00:00:00 [code = INFLUENZA VACCINE] Future Scheduled 2007 65+ PNEUMOCOCCAL [facility] 00:00:00 VACCINE (1 of 1 - PPSV23) [code = 65+ PNEUMOCOCCAL VACCINE (1 of 1 - PPSV23)] Future Scheduled 1992 SHINGLES VACCINES (#1) [place] [facility] 00:00:00 [code = SHINGLES VACCINES (#1)] Future Scheduled 1958 COVID-19 VACCINE (1 of [place] [facility] 00:00:00 2) [code = COVID-19 VACCINE (1 of 2)] Encounters Start End Encounter Admission Attending Care Care Encounter Source Date/Time Date/Time Type Type Clinicians Facility Department ID 2020-04-11 2020-04-11 Telephone PcpMAGDI [id number] 00:00:00 00:00:00 Patient JAVY [id number] Does Not HOSPITAL [id number] Have A [id number] 2020-04-10 2020-04-10 Telephone ShonnaMAGDI [id number] 00:00:00 00:00:00 Eva PALAFOX [id number] [facility] [id number] 2020-04-07 2020-04-07 Laboratory Lab, [facility] [id number] 07:48:20 08:08:20 Only Fam [facility] [id number] [place] [id number] Professio [phone] nal [address] One Results This patient has no known results.
[2020-11-18] MEDS ORDERED: FAMOTIDINE 20 MG/2 ML VIAL IV ONE (22:10)
[2020-11-18] MEDS ORDERED: CEFTRIAXONE/SWI 1gm 1 GM/10 ML SYR ONE (22:10)
[2020-11-18] MEDS ORDERED: NA CHLORIDE 0.9% 1,000 ML ONE (22:10)
[2020-11-18 22:26] LABS: Absolute Lymphocytes (CBC) 0.7 K/uL (0.7-4.9); Basophils % 0.6 % (0-1.3); Hematocrit 38.1 % (36.0-45.0); Protime INR 1.05; RBC Red Blood Cell Count 4.37 M/uL (3.86-4.86)
[2020-11-18 22:38] LABS: ALT/SGPT 35 U/L (12-78); AST/SGOT 32 U/L (15-37); Albumin 3.9 g/dL (3.4-5.0); Alkaline Phosphatase 114 U/L (45-117); BUN Blood Urea Nitrogen 11 mg/dL (7-18); Bicarbonate 25 mmol/L (21-32); Bilirubin Direct 0.1 mg/dL (0-0.2); Bilirubin Total 0.7 mg/dL (0.2-1.0); Glucose Level 127 mg/dL (74-106); Lipase 61 U/L (73-393); Magnesium 2.3 mg/dL (1.8-2.4); NT PRO-BNP 590 pg/mL (<450); Potassium 3.6 mmol/L (3.5-5.1); Sodium Level 136 mmol/L (136-145); Troponin (Emerg Dept Use Only) < 0.02 ng/mL (0.0-0.045)
[2020-11-18 23:15] LABS: Urine Blood 1+ (NEG); Urine Glucose TRACE (NEG); Urine Protein 1+ (NEG); Urine Specific Gravity 1.025 (1.005-1.030); Urine pH 7.5 (5.0-7.0)
--- NOTE | 2020-11-18 23:44 | EDPHYS ---
Physician Documentation [facility] Name: Yelitza Kellogg Age: 80 yrs Sex: Female : 1940 Arrival Date: 11/18/2020 Time: 19:04 Bed 6 Private MD: Adelso Monk HPI: 11/18 21:48 This 80 yrs old Female presents to ER via Wheelchair with complaints of casey Altered Mental Status. 21:48 The patient presents with confusion, trouble concentrating. Onset: The symptoms/episode casey began/occurred 1 year(s) ago. Historical: - Allergies: 19:25 DONEPEZIL; ca1 - PMHx: 19:25 Alzheimers; Chronic pain; Dementia; Hypertension; ca1 - PSHx: 19:25 None; ca1 - Immunization history:: Pneumococcal vaccine is up to date, Flu vaccine is up to date. - Social history:: Smoking status: Patient denies any tobacco usage or history of. ROS: 21:48 Constitutional: Negative for fever, chills, and weight loss, Eyes: Negative for injury, casey pain, redness, and discharge, ENT: Negative for injury, pain, and discharge, Neck: Negative for injury, pain, and swelling, Cardiovascular: Negative for chest pain, palpitations, and edema, Respiratory: Negative for shortness of breath, cough, wheezing, and pleuritic chest pain, Back: Negative for injury and pain, : Negative for injury, bleeding, discharge, and swelling, MS/Extremity: Negative for injury and deformity, Neuro: Negative for headache, weakness, numbness, tingling, and seizure, Psych: Negative for depression, anxiety, suicide ideation, homicidal ideation, and hallucinations, Allergy/Immunology: Negative for hives, rash, and allergies, Endocrine: Negative for neck swelling, polydipsia, polyuria, polyphagia, and marked weight changes, Hematologic/Lymphatic: Negative for swollen nodes, abnormal bleeding, and unusual bruising. 21:48 Abdomen/GI: Positive for abdominal pain. Exam: 21:48 Constitutional: This is a well developed, well nourished patient who is awake, alert, casey and in no acute distress. Head/Face: Normocephalic, atraumatic. Eyes: Pupils equal round and reactive to light, extra-ocular motions intact. Lids and lashes normal. Conjunctiva and sclera are non-icteric and not injected. Cornea within normal limits. Periorbital areas with no swelling, redness, or edema. ENT: Nares patent. No nasal discharge, no septal abnormalities noted. Tympanic membranes are normal and external auditory canals are clear. Oropharynx with no redness, swelling, or masses, exudates, or evidence of obstruction, uvula midline. Mucous membranes moist. Neck: Trachea midline, no thyromegaly or masses palpated, and no cervical lymphadenopathy. Supple, full range of motion without nuchal rigidity, or vertebral point tenderness. No Meningismus. Chest/axilla: Normal chest wall appearance and motion. Nontender with no deformity. No lesions are appreciated. Cardiovascular: Regular rate and rhythm with a normal S1 and S2. No gallops, murmurs, or rubs. Normal PMI, no JVD. No pulse deficits. Respiratory: Lungs have equal breath sounds bilaterally, clear to auscultation and percussion. No rales, rhonchi or wheezes noted. No increased work of breathing, no retractions or nasal flaring. Back: No spinal tenderness. No costovertebral tenderness. Full range of motion. Female : Normal external genitalia. Skin: Warm, dry with normal turgor. Normal color with no rashes, no lesions, and no evidence of cellulitis. MS/ Extremity: Pulses equal, no cyanosis. Neurovascular intact. Full, normal range of motion. Psych: Awake, alert, with orientation to person, place and time. Behavior, mood, and affect are within normal limits. 21:48 Abdomen/GI: Inspection: abdomen appears normal, Bowel sounds: normal, Palpation: abdomen is soft and non-tender, Liver: no appreciated palpable abnormalities, Hernia: not appreciated. 21:51 Neck: ROM/movement: is normal, no acute changes, Meningeal signs: are not present, casey Kernig's sign is negative, Brudzinski's sign is negative. Vital Signs: 19:21 BP 188 / 95; Pulse 79; Resp 16 S; Temp 99.7(O); Pulse Ox 99% on R/A; Weight 56.7 kg ca1 (R); Height 5 ft. 7 in. (170.18 cm) (R); Pain 0/10; 23:00 BP 165 / 80; Pulse 85; Resp 16; Pulse Ox 99% ; rr5 11/19 00:00 BP 141 / 79; Pulse 83; Resp 17; Pulse Ox 98% ; rr5 00:49 BP 146 / 95; Pulse 80; Resp 17; Pulse Ox 99% ; rr5 11/18 19:21 Body Mass Index 19.58 (56.70 kg, 170.18 cm) ca1 MDM: 11/18 20:33 Patient medically screened. casey 21:51 Differential Diagnosis: electrolyte abnormality, hypoglycemia, pneumonia, volume casey depletion. Differential diagnosis: bowel obstruction, cholecystitis, Cholelithiasis, gastritis, non-specific abd pain, pancreatitis, Peptic Ulcer Disease, Ureterolithiasis, urinary tract infection. Data reviewed: vital signs, nurses notes, lab test result(s), EKG, radiologic studies, CT scan, plain films. Data interpreted: youth nutritional monitor: rate is 79 beats/min, rhythm is regular, Pulse oximetry: on room air is 99 %. Test interpretation: by ED physician or midlevel provider: ECG, plain radiologic studies. Counseling: I had a detailed discussion with the patient and/or guardian regarding: the historical points, exam findings, and any diagnostic results supporting the discharge/admit diagnosis, lab results, radiology results. 11/18 21:47 Order name: Basic Metabolic Panel; Complete Time: 22:55 casey 11/18 21:47 Order name: CBC with Diff; Complete Time: 22:55 casey 11/18 21:47 Order name: LFT's; Complete Time: 22:55 casey 11/18 21:47 Order name: Magnesium; Complete Time: 22:55 [facility] 11/18 21:47 Order name: NT PRO-BNP; Complete Time: 22:55 casey 11/18 21:47 Order name: PT-INR; Complete Time: 22:55 [facility] 11/18 21:47 Order name: Troponin (emerg Dept Use Only); Complete Time: 22:55 casey 11/18 21:47 Order name: Lipase; Complete Time: 22:55 [facility] 11/18 21:47 Order name: Blood Culture Adult (2) casey 11/18 21:47 Order name: Lactate; Complete Time: 22:55 casey 11/18 21:47 Order name: Urine Culture [facility] 11/18 22:56 Order name: Urine Dipstick--Ancillary (enter results); Complete Time: 23:24 tt3 11/18 21:47 Order name: XRAY Chest (1 view) [facility] 11/18 21:47 Order name: EKG; Complete Time: 21:48 [facility] 11/18 21:47 Order name: EKG - Nurse/Tech; Complete Time: 22:29 [facility] 11/18 21:47 Order name: IV Saline Lock; Complete Time: 22:29 [facility] 11/18 21:47 Order name: Labs collected and sent; Complete Time: 22:29 [facility] 11/18 21:47 Order name: O2 Per Protocol; Complete Time: 22:29 [facility] 11/18 21:47 Order name: O2 Sat Monitoring; Complete Time: 22:29 [facility] 11/18 21:47 Order name: CT Abd/Pelvis - IV Contrast Only [facility] 11/19 00:05 Order name: COVID-19/FLU A+B EDMS Administered Medications: 22:03 Drug: NS 0.9% 500 ml Route: IV; Rate: bolus; Site: right forearm; ea 23:00 Follow up: Response: No adverse reaction; IV Status: Completed infusion; IV Intake: rr5 500ml 22:03 Drug: NS 0.9% 1000 ml Route: IV; Rate: 125 ml/hr; Site: right forearm; ea 11/19 00:40 Follow up: Response: No adverse reaction; IV Status: Completed infusion; IV Intake: rr5 250ml 11/18 22:03 Drug: Rocephin 1 grams Route: IV; Rate: per protocol; Site: right forearm; ea 22:30 Follow up: Response: No adverse reaction; IV Status: Completed infusion; IV Intake: [id number] 22:03 Drug: Pepcid 20 mg Route: IVP; Site: right forearm; ea 23:00 Follow up: Response: No adverse reaction rr5 23:28 Drug: NS 0.9% 500 ml Route: IV; Rate: bolus; Site: right forearm; rr5 11/19 00:20 Follow up: Response: No adverse reaction; IV Status: Completed infusion; IV Intake: rr5 500ml Disposition: 11/18/20 23:43 Discharged to Home. Impression: Altered mental status, unspecified, Alzheimer's disease, Adverse effect of other vaccines and biological substances - Covid. - Condition is Stable. - Discharge Instructions: Abdominal Pain, Adult, Confusion, Urinary Tract Infection, Adult, Urinary Tract Infection, Adult, Axts-cu-Lefy, Alzheimer Disease Caregiver Guide, Alzheimer Disease Caregiver Guide, Jyzb-qa-Haun. - Prescriptions for Augmentin 500- 125 mg Oral Tablet - take 1 tablet by ORAL route every 12 hours for 7 days; 14 tablet. - Medication Reconciliation Form, Thank You Letter, Antibiotic Education, Prescription Opioid Use form. - Follow up: Private Physician; When: 2 - 3 days; Reason: Recheck today's complaints, Continuance of care, Re-evaluation by your physician. Follow up: Jamaal Mckinley MD; When: 2 - 3 days; Reason: Recheck today's complaints, Continuance of care, Re-evaluation by your physician. - Problem is new. - Symptoms have improved. Signatures: Dispatcher [employer] EDMS Adelso De Los Santos MD MD cha Mickail, Joel, PA PA jmm Antunez, Elena RN RN Braeden Oneill RN RN rr5 Acob, Alexia RN RN ca1 Corrections: (The following items were deleted from the chart) 11/18 23:01 21:48 Influenza Screen (A \T\ B)+BA.LAB.BRZ ordered. EDMS EDMS 23:02 21:48 CORONAVIRUS+MR.LAB.BRZ ordered. EDAR EDMS 23:44 23:43 11/18/2020 23:43 Discharged to Home. Impression: Altered mental status, casey unspecified; Alzheimer's disease; Adverse effect of other vaccines and biological substances - Covid. Condition is Stable. Discharge Instructions: Abdominal Pain, Adult, Confusion, Urinary Tract Infection, Adult, Urinary Tract Infection, Adult, Ursd-ow-Guoh, Alzheimer Disease Caregiver Guide, Alzheimer Disease Caregiver Guide, Zpss-pk-Xynl. Prescriptions for Augmentin 500-125 mg Oral Tablet - take 1 tablet by ORAL route every 12 hours for 7 days; 14 tablet. and Forms are Medication Reconciliation Form, Thank You Letter, Antibiotic Education, Prescription Opioid Use. Follow up: Private Physician; When: 2 - 3 days; Reason: Recheck today's complaints, Continuance of care, Re-evaluation by your physician. Problem is new. Symptoms have improved. casey 11/19 00:51 11/18 23:44 11/18/2020 23:43 Discharged to Home. Impression: Altered mental status, rr5 unspecified; Alzheimer's disease; Adverse effect of other vaccines and biological substances - Covid. Condition is Stable. Discharge Instructions: Abdominal Pain, Adult, Confusion, Urinary Tract Infection, Adult, Urinary Tract Infection, Adult, Onfy-fo-Esjz, Alzheimer Disease Caregiver Guide, Alzheimer Disease Caregiver Guide, Sott-qv-Mpqf. Prescriptions for Augmentin 500-125 mg Oral Tablet - take 1 tablet by ORAL route every 12 hours for 7 days; 14 tablet. and Forms are Medication Reconciliation Form, Thank You Letter, Antibiotic Education, Prescription Opioid Use. Follow up: Private Physician; When: 2 - 3 days; Reason: Recheck today's complaints, Continuance of care, Re-evaluation by your physician. Follow up: Jamaal Mckinley; When: 2 - 3 days; Reason: Recheck today's complaints, Continuance of care, Re-evaluation by your physician. Problem is new. Symptoms have improved. casey
--- NOTE | 2020-11-18 23:44 | ER ---
Nurse's Notes [facility] Name: Yelitza Kellogg Age: 80 yrs Sex: Female : 1940 Arrival Date: 11/18/2020 Time: 19:04 Bed 6 Private MD: Diagnosis: Altered mental status, unspecified;Alzheimer's disease;Adverse effect of other vaccines and biological substances-Covid Presentation: 11/18 19:21 Chief complaint: Spouse and/or significant other states: She has Alzheimer's. But ca1 today, she has an upset stomach, she is crying, and having pain on her belly. She had her 2nd Covid Vaccine yesterday and she said she is just feeling bad and I couldn't settle her down. All afternoon she's been kind of incoherent. She also felt hot. Denies N/V/D. Coronavirus screen: Client denies travel out of the [place] in the last 14 days. At this time, the client does not indicate any symptoms associated with coronavirus-19. Ebola Screen: Patient negative for fever greater than or equal to 101.5 degrees Fahrenheit, and additional compatible Ebola Virus Disease symptoms Patient denies exposure to infectious person. Patient denies travel to an Ebola-affected area in the 21 days before illness onset. No symptoms or risks identified at this time. Initial Sepsis Screen: Does the patient meet any 2 criteria? No. Patient's initial sepsis screen is negative. Does the patient have a suspected source of infection? No. Patient's initial sepsis screen is negative. Risk Assessment: Do you want to hurt yourself or someone else? Patient reports no desire to harm self or others. Onset of symptoms was November 18, 2020. 19:21 Method Of Arrival: Wheelchair ca1 19:21 Acuity: ELIAS 2 ca1 Historical: - Allergies: 19:25 DONEPEZIL; ca1 - PMHx: 19:25 Alzheimers; Chronic pain; Dementia; Hypertension; ca1 - PSHx: 19:25 None; ca1 - Immunization history:: Pneumococcal vaccine is up to date, Flu vaccine is up to date. - Social history:: Smoking status: Patient denies any tobacco usage or history of. Screenin:00 Abuse screen: Denies threats or abuse. Denies injuries from another. Nutritional rr5 screening: No deficits noted. Tuberculosis screening: No symptoms or risk factors identified. Fall Risk IV access (20 points). Total Jarvis Fall Scale indicates No Risk (0-24 pts). Assessment: 22:00 General: Appears in no apparent distress. uncomfortable, Behavior is anxious. Pain: rr5 Unable to use pain scale. Patient is disoriented. Neuro: Level of Consciousness is awake, obeys commands, confused, Oriented to person. Cardiovascular: Capillary refill < 3 seconds Patient's skin is warm and dry. 22:00 Respiratory: Airway is patent Respiratory effort is even, unlabored, Respiratory rr5 pattern is regular, symmetrical. GI: No signs and/or symptoms were reported involving the gastrointestinal system. : No signs and/or symptoms were reported regarding the genitourinary system. EENT: No signs and/or symptoms were reported regarding the EENT system. Derm: Skin is intact, is healthy with good turgor, Skin temperature is warm. Musculoskeletal: Capillary refill < 3 seconds. 23:02 Reassessment: Patient appears in no apparent distress at this time. back from CTscan. rr5 11/19 00:00 Reassessment: Patient appears in no apparent distress at this time. awaiting for rr5 results. 00:48 Reassessment: Patient appears in no apparent distress at this time. discharge rr5 instruction given and explained to orthodontic laboratory technician with out complaints made, ED provider reassess and explained to orthodontic laboratory technician the plan of care. Vital Signs: 11/18 19:21 BP 188 / 95; Pulse 79; Resp 16 S; Temp 99.7(O); Pulse Ox 99% on R/A; Weight 56.7 kg ca1 (R); Height 5 ft. 7 in. (170.18 cm) (R); Pain 0/10; 23:00 BP 165 / 80; Pulse 85; Resp 16; Pulse Ox 99% ; rr5 11/19 00:00 BP 141 / 79; Pulse 83; Resp 17; Pulse Ox 98% ; rr5 00:49 BP 146 / 95; Pulse 80; Resp 17; Pulse Ox 99% ; rr5 11/18 19:21 Body Mass Index 19.58 (56.70 kg, 170.18 cm) ca1 ED Course: 11/18 19:04 Patient arrived in ED. am2 19:04 Alvarado Villanueva MD is Private Physician. am2 19:24 Triage completed. ca1 19:25 Arm band placed on right wrist. ca1 20:33 Adelso De Los Santos MD is Attending Physician. casey 21:41 Braeden Spann RN is Primary Nurse. rr5 22:00 Inserted saline lock: 20 gauge in right forearm, using aseptic technique. Blood rr5 collected. 22:00 First set of blood cultures drawn by me. rr5 22:10 EKG done, by ED staff, reviewed by Adelso De Los Santos MD. rr5 22:20 XRAY Chest (1 view) In Process Unspecified. EDMS 22:25 Second set of blood cultures drawn by me. rr5 22:33 Patient has correct armband on for positive identification. Placed in gown. Bed in low rr5 position. Call light in reach. Side rails up X2. monitoring and evaluation advisor on. Pulse ox on. NIBP on. 22:59 Urine collected: clean catch specimen, clear. rr5 23:08 CT Abd/Pelvis - IV Contrast Only In Process Unspecified. EDMS 23:43 Jamaal Mckinley MD is Referral Physician. casey Administered Medications: 22:03 Drug: NS 0.9% 500 ml Route: IV; Rate: bolus; Site: right forearm; ea 23:00 Follow up: Response: No adverse reaction; IV Status: Completed infusion; IV Intake: rr5 500ml 22:03 Drug: NS 0.9% 1000 ml Route: IV; Rate: 125 ml/hr; Site: right forearm; ea 11/19 00:40 Follow up: Response: No adverse reaction; IV Status: Completed infusion; IV Intake: rr5 250ml 11/18 22:03 Drug: Rocephin 1 grams Route: IV; Rate: per protocol; Site: right forearm; ea 22:30 Follow up: Response: No adverse reaction; IV Status: Completed infusion; IV Intake: [id number] 22:03 Drug: Pepcid 20 mg Route: IVP; Site: right forearm; ea 23:00 Follow up: Response: No adverse reaction rr5 23:28 Drug: NS 0.9% 500 ml Route: IV; Rate: bolus; Site: right forearm; rr5 11/19 00:20 Follow up: Response: No adverse reaction; IV Status: Completed infusion; IV Intake: rr5 500ml Intake: 11/18 22:30 IV: 10ml; Total: 10ml. rr5 23:00 IV: 500ml; Total: 510ml. rr5 11/19 00:20 IV: 500ml; Total: 1010ml. rr5 00:40 IV: 250ml; Total: 1260ml. rr5 Outcome: 11/18 23:43 Discharge ordered by MD. peña 11/19 00:51 Patient left the ED. rr5 Signatures: Dispatcher [employer] EDAdelso Tamayo MD MD cha Moreno, Amanda am2 Antunez, Elena, RN RN Braeden Oneill, RN RN rr5 Alexia Phelan RN RN ca1
[2020-11-19 00:04] LABS: SARS-COV-2 RT PCR NEGATIVE (NEGATIVE)
[2020-11-19 06:00] VITALS: TEMP 99.7
[2020-11-19 06:04] VITALS: BP 146/95; O2SAT 99
--- NOTE | 2020-11-19 07:50 | RAD REPORT ---
EXAM DESCRIPTION: RAD - Chest Single View - 11/18/2020 10:20 pm CLINICAL HISTORY: COUGH COMPARISON: April 2020 TECHNIQUE: AP portable chest image was obtained 11/18/2020 10:20 pm . FINDINGS: Chronic interstitial lung changes are present not clearly different from comparison. No co nsolidation or mass lesions seen. Heart and vasculature are normal. No measurable pleural effusion an d no pneumothorax. No acute bony abnormality seen. No acute aortic findings suspected. IMPRESSION: No acute cardiopulmonary process. Chest exam is similar to the April 2020 study.
--- NOTE | 2020-11-19 10:53 | RAD REPORT ---
EXAM DESCRIPTION: CT - Abdomen Pelvis W Contrast - 11/19/2020 7:08 am RadLex: CT ABDOMEN PELVIS WITH IV CONTRAST CLINICAL HISTORY: ABD PAIN. COMPARISON: CT of the abdomen and pelvis from May 19, 2020. TECHNIQUE: CT of the abdomen and pelvis was performed following intravenous administration of iodina dorian contrast. Arterial phase images to the abdomen, and portal venous phase images to the abdomen and pelvis were obtained. Oral contrast was not administered. Axial, coronal, and sagittal soft tissue w indow reconstructions were created and sent to PACS. This exam was performed according to our departmental dose-optimization program, which includes autom ated exposure control, adjustment of the mA and/or kV according to patient size and/or use of iterati ve reconstruction technique. FINDINGS: Thoracic: No significant abnormality. Hepatobiliary: Susie's lobe configuration of the liver. No concerning hepatic lesion identified. The hepatic and portal veins are patent. The gallbladder is surgically absent. No pathologic biliary shayla grant dilatation. Pancreas: Unremarkable. Spleen: Unremarkable. Gastrointestinal: Prominent colonic diverticulosis involving the sigmoid colon. Estimated small to mo derate amount of fecal material throughout the colon. Previously seen left inguinal hernia containing a loop of bowel is smaller on today's exam and only contains fat, measuring 1.5 cm in size. No evide nce of bowel obstruction or perienteric inflammation. The appendix is normal. Adrenals: No abnormality identified in either adrenal gland. Renal: Numerous small bilateral renal hypodensities, too small to accurately characterize but statist ically likely cysts. No concerning parenchymal abnormality in either kidney. No hydronephrosis or uro lithiasis. Bladder/Reproductive: Unremarkable appearance of the urinary bladder by CT technique. Vascular/Lymphatics: No lymphadenopathy identified by CT size criteria. Abdominal aorta is normal in caliber. Mild atherosclerosis. Tortuosity of the abdominal aorta. Musculoskeletal: No concerning osseous lesion identified. Osteopenia. Spinal scoliosis and degenerati ve changes. Fluid / peritoneum: No significant free fluid. No free intraperitoneal air identified. IMPRESSION 1. No acute abnormality identified in the abdomen or pelvis by CT. 2. Prominent colonic diverticulosis without evidence of acute diverticulitis. 3. Previously seen left inguinal hernia containing a loop of bowel is smaller on today's exam and o nly contains fat. Electronically signed by: Sri Heart MD 11/18/2020 11:23 PM SAFETY LEAD Due to temporary technical issues with the PACS/Fluency reporting system, reports are being signed by the in house radiologist without review as a courtesy to ensure prompt reporting. The interpreting r adiologist is fully responsible for the content of the report.
--- NOTE | 2020-11-19 14:10 | EKG ---
Test Date: 2020-11-18 Test Time: 22:12:48 Fleet Administrative Assistant: SANTANA MEASUREMENT RESULTS: Intervals: Rate: 82 ID: [id number] QRSD: 88 QT: 380 QTc: 443 Omro: P: 75 ID: [id number] QRS: 66 T: 69 INTERPRETIVE STATEMENTS: Sinus rhythm with premature supraventricular complexes Otherwise normal ECG Compared to ECG 05/19/2020 19:41:29 Atrial premature complex(es) now present Electronically Signed On 11-19-20 14:08:54 COAL CAGER by Fransisco Mccurdy
== END 2020-11-19 00:51 | disposition home or self-care (01) ==
LOC: ER 18:41
DX: G30.9 Alzheimer's disease, unspecified (principal); T50.Z95A Adverse effect of other vaccines and biological substances, initial encounter; F02.80 Dementia in other diseases classified elsewhere, unspecified severity, without behavioral disturbance, psychotic disturbance, mood disturbance, and anxiety; I10 Essential (primary) hypertension; Z20.822 Contact with and (suspected) exposure to COVID-19; Z88.8 Allergy status to other drugs, medicaments and biological substances
CPT/HCPCS: 96365; 96361; 93005; 87040 ×2; 87088; 85025; 87086; 80048; 36415; 83735; 85610; 80076; 83605; 81003; 84484; 83690; 83880; 0240U; 74177; 71045; 96375; 99284; Q9967; J0696; J7030

== ENCOUNTER 2020-12-15 13:12 | Emergency (ER) | payer OTHER ==
--- OUTSIDE RECORDS SUMMARY | 2020-12-15 13:16 | XMS REPORT | Continuity of Care Document ---
:1940 Author Organization [facility] t Address [address] [place] [address] [address] [place] [address] Care Team Providers Name Role Phone Pcp, Does Not Have A Attending Clinician Jack Zaldivar Attending Clinician Lab, Fam Pob I Attending Clinician Unavailable Problems This patient has no known problems. Allergies, Adverse Reactions, Alerts This patient has no known allergies or adverse reactions. Medications This patient has no known medications. Procedures This patient has no known procedures. Encounters Start End Encounter Admission Attending Care Care Encounter Source Date/Time Date/Time Type Type Clinicians Facility Department ID 2020-04-11 2020-04-11 Telephone MAGDI Haley [id number] 00:00:00 00:00:00 Patient JAVY [id number] Does Not HOSPITAL [id number] Have A [id number] 2020-04-10 2020-04-10 Telephone MAGDI Kilpatrick [id number] 00:00:00 00:00:00 Eva [place]AFO[place] [id number] [facility] [id number] 2020-04-07 2020-04-07 Laboratory Lab, [facility] [id number] 07:48:20 08:08:20 Only Fam Pob I [facility] [id number] [place] [id number] Professio [id number] nal [address] One Results This patient has no known results.
--- NOTE | 2020-12-15 17:20 | ER ---
Nurse's Notes [facility] Name: Yelitza Kellogg Age: 80 yrs Sex: Female : 1940 Arrival Date: 12/15/2020 Time: 13:15 Bed Waiting Private MD: Diagnosis: Presentation: 12/15 13:40 Chief complaint: Patient states: LUQ and LLQ pain this morning. Denies N/V/D. Denies ca1 urinary symptoms. Denies fever states, "was here for the same time within the last month, was prescribed antibiotics for a mild UTI but lost the prescription and was not able to take the meds". Coronavirus screen: Client denies travel out of the [place] in the last 14 days. At this time, the client does not indicate any symptoms associated with coronavirus-19. Ebola Screen: Patient negative for fever greater than or equal to 101.5 degrees Fahrenheit, and additional compatible Ebola Virus Disease symptoms Patient denies exposure to infectious person. Patient denies travel to an Ebola-affected area in the 21 days before illness onset. No symptoms or risks identified at this time. Initial Sepsis Screen: Does the patient meet any 2 criteria? No. Patient's initial sepsis screen is negative. Does the patient have a suspected source of infection? No. Patient's initial sepsis screen is negative. Risk Assessment: Do you want to hurt yourself or someone else? Patient reports no desire to harm self or others. Onset of symptoms was December 15, 2020. 13:40 Method Of Arrival: Wheelchair ca1 13:40 Acuity: ELIAS 3 ca1 15:52 Note Registration states, pt and left. ca1 Historical: - Allergies: 13:45 DONEPEZIL; ca1 - PMHx: 13:45 Alzheimers; Chronic pain; Dementia; Hypertension; ca1 - PSHx: 13:45 Bladder suspension; ca1 - Immunization history:: Client reports receiving the 2nd dose of the Covid vaccine, Date received: November 2020 Pneumococcal vaccine is up to date, Flu vaccine is up to date. - Social history:: Smoking status: Patient denies any tobacco usage or history of. Vital Signs: 13:40 BP 119 / 76; Pulse 64; Resp 16 S; Temp 97.6(TE); Pulse Ox 98% on R/A; Weight 58.97 kg ca1 (R); Height 5 ft. 6 in. (167.64 cm) (R); 13:40 Body Mass Index 20.98 (58.97 kg, 167.64 cm) ca1 ED Course: 13:15 Patient arrived in ED. as 13:44 Triage completed. ca1 13:45 Arm band placed on right wrist. ca1 17:19 Patient's name was called from ER lobby. No response. Unable to locate patient. Will ca1 disposition as left without being seen by a provider. Administered Medications: No medications were administered Outcome: 17:19 Patient left the ED. ca1 Signatures: Rosmery Gurrola Cheryl, RN RN ca1
[2020-12-15 17:39] VITALS: BP 119/76; TEMP 97.6; O2SAT 98
== END 2020-12-15 17:19 | disposition left against medical advice (07) ==
LOC: ER 13:12
DX: R10.12 Left upper quadrant pain (principal); R10.32 Left lower quadrant pain; G30.9 Alzheimer's disease, unspecified; F02.80 Dementia in other diseases classified elsewhere, unspecified severity, without behavioral disturbance, psychotic disturbance, mood disturbance, and anxiety; G89.29 Other chronic pain; I10 Essential (primary) hypertension; Z53.21 Procedure and treatment not carried out due to patient leaving prior to being seen by health care provider
CPT/HCPCS: 99281

== ENCOUNTER 2021-06-01 13:58 | Emergency (ER) | payer OTHER ==
--- OUTSIDE RECORDS SUMMARY | 2021-06-01 14:01 | XMS REPORT | Continuity of Care Document ---
:1940 Author Organization [facility] t Address [address] [place] [address] Care Team Providers Name Role Phone Asked, Pcp Primary Care Physician Unavailable Pcp, Does Not Have A Attending Clinician Shonna JO, Jack Attending Clinician Lab, Fam Pob I Attending Clinician Unavailable Problems Condition Condition Condition Status Onset Resolution Last Treating Co mments Source Name Details Category Date Date Treatment Clinician Date Blood loss Blood loss Disease Active 2016-0 M ethodi anemia anemia 12-31 00:00: Hospita 00 l Hyponatrem Hyponatrem Disease Active 0 M ethodi ia ia 12-31 00:00: Hospita 00 l Alzheimer' Alzheimer' Disease Active 2017-0 M ethodi s dementia s dementia 12-31 00:00: Hospita 00 l Accelerate Accelerate Disease Active 0 M ethodi d d 12-31 hypertensi hypertensi 00:00: Ho spita on on 00 l Fibrositis Fibrositis Disease Active 2017-0 M ethodi 12-31 00:00: Hospita 00 l Inflammati Inflammati Disease Active 2017-0 M ethodi on of on of 12-31 sacroiliac sacroiliac 00:00: Ho spita joint joint 00 l Allergies, Adverse Reactions, Alerts This patient has no known allergies or adverse reactions. Social History Social Habit Start Date Stop Date Quantity Comments Source Alcohol intake 2016-12-31 2016-12-31 Current [facility] 00:00:00 00:00:00 non-drinker of Hospital alcohol (finding) Sex Ass[birth year] At [birth year] [facility] 00:00:00 00:00:00 Hospital Smoking Status Start Date Stop Date Source Never smoker [facility] Medications Ordered Filled Start Stop Current Ordering Indication Dosage Frequency Signature Comments Components Source Medication Medication Date Date Medication? Clinician (SIG) Name Name No known No [facility] medications [facility] Procedures This patient has no known procedures. Plan of Care Planned Activity Planned Date Details Comments Source Future Scheduled Test COVID-19 VACCINE (1) [facility] [code = COVID-19 VACCINE (1)] Future Scheduled Test SHINGLES VACCINES (#1) [facility] [code = SHINGLES VACCINES (#1)] Future Scheduled Test 65+ PNEUMOCOCCAL [facility] VACCINE (1 of 1 - PPSV23) [code = 65+ PNEUMOCOCCAL VACCINE (1 of 1 - PPSV23)] Future Scheduled Test INFLUENZA VACCINE [code [facility] = INFLUENZA VACCINE] Encounters Start End Encounter Admission Attending Care Care Encounter Source Date/Time Date/Time Type Type Clinicians Facility Department ID 2020-04-11 2020-04-11 Telephone Pcp[facility] [id number] 00:00:00 00:00:00 Patient [facility] [id number] Does Not HOSPITAL [id number] Have A [id number] 2020-04-10 2020-04-10 Telephone ShonnaMAGDI engle [id number] 00:00:00 00:00:00 Eva Santiago [facility] [id number] [facility] [id number] 2020-04-07 2020-04-07 Laboratory Lab, [facility] [id number] 07:48:20 08:08:20 Only Fam [facility] [id number] [place] [id number] [facility] [id number] [address] One Results This patient has no known results.
[2021-06-01 15:59] LABS: Absolute Lymphocytes (CBC) 1.6 K/uL (0.7-4.9); Basophils % 0.5 % (0-1.3); Hematocrit 36.9 % (36.0-45.0); Lymphocytes % 25.2 % (15.3-44.8); MPV 7.9 fL (7.6-11.3); RBC Red Blood Cell Count 4.11 M/uL (3.86-4.86)
[2021-06-01 16:09] LABS: ALT/SGPT 33 U/L (12-78); AST/SGOT 26 U/L (15-37); Albumin 3.6 g/dL (3.4-5.0); Alkaline Phosphatase 103 U/L (45-117); BUN Blood Urea Nitrogen 22 mg/dL (7-18); Bicarbonate 29 mmol/L (21-32); Bilirubin Direct < 0.1 mg/dL (0-0.2); Bilirubin Total 0.4 mg/dL (0.2-1.0); Glucose Level 106 mg/dL (74-106); Lipase 64 U/L (73-393); Protein, Total 7.5 g/dL (6.4-8.2); Sodium Level 142 mmol/L (136-145)
--- NOTE | 2021-06-01 17:06 | RAD REPORT ---
EXAM DESCRIPTION: CTAbdomen Pelvis Wo Contrast - 06/01/2021 4:44 pm CLINICAL HISTORY: . ABD PAIN COMPARISON: Abdomen Pelvis W Contrast dated 11/18/2020; Abdomen Pelvis W Contrast dated 05/19/2020 ; Stone Protocol dated 12/08/2019; Abdomen Pelvis W Contrast dated 09/20/2019 TECHNIQUE: Biphasic CT imaging of the abdomen and pelvis was performed with 100 ml non-ionic IV cont rast. All CT scans are performed using dose optimization technique as appropriate and may include automated exposure control or mA/KV adjustment according to patient size. FINDINGS: Lower chest: No acute abnormality. Liver: No acute abnormality or suspicious lesions. Biliary: No biliary ductal dilatation. Cholecystectomy Stomach: No significant focal abnormality. Duodenum: No significant focal abnormality. Pancreas: No significant abnormality. Spleen: No significant abnormality. Adrenal: No suspicious lesions. Kidney/ureter: No hydronephrosis. No renal calculi. Too small to characterize and/or benign appearing renal lesions are noted. Retroperitoneum: No retroperitoneal adenopathy. Vascular: No aneurysm. Bowel: No significant focal abnormality. Diverticulosis without evidence of acute diverticulitis. Peritoneum: No ascites or free air. Bladder: Grossly unremarkable. Reproductive: No adnexal masses. Bones: No acute fracture. Remote appearing T11 compression fracture . Other: n/a IMPRESSION: No acute intra-abdominal or pelvic finding. Incidental findings as noted above.
[2021-06-01 17:41] LABS: Urine Blood Trace-lysed (Negative); Urine Glucose Negative (Negative); Urine Protein Negative (Negative); Urine Specific Gravity 1.025 (1.005-1.030)
--- NOTE | 2021-06-01 17:47 | EDPHYS ---
Physician Documentation [facility] Name: Yelitza Kellogg Age: 80 yrs Sex: Female : 1940 Arrival Date: 06/01/2021 Time: 14:00 Bed 10 Private MD: ED Physician Karen Gonzalez HPI: 06/01 16:00 This 80 yrs old Female presents to ER via Ambulatory with complaints of jr8 Abdominal Pain. 16:00 Per and caregiver of patient, he explained that patient has a baseline history jr8 of dementia without any increasing confusion. Started to complain of severe left lower abdominal pain. Stated that she was in tears earlier but seems to have subsided at this time. Denies any fever, vomiting, diarrhea. Has had this once before in the past without acute findings. Has been on stool softeners for constipation in the past as well. Came for further evaluation at this time due to the intensity of the pain earlier.. Historical: - Allergies: 14:11 Donepezil; ld1 - Home Meds: 14:11 None [Active]; ld1 - PMHx: 14:11 Alzheimers; Chronic pain; Dementia; Hypertension; ld1 - PSHx: 14:11 bladder lift; ld1 - Immunization history:: Adult Immunizations up to date, Client reports receiving the 2nd dose of the Covid vaccine. - Social history:: Smoking status: Patient denies any tobacco usage or history of. ROS: 16:00 Eyes: Negative for injury, pain, redness, and discharge, ENT: Negative for injury, jr8 pain, and discharge, Neck: Negative for injury, pain, and swelling, Cardiovascular: Negative for chest pain, palpitations, and edema, Respiratory: Negative for shortness of breath, cough, wheezing, and pleuritic chest pain, Back: Negative for injury and pain, MS/Extremity: Negative for injury and deformity, Skin: Negative for injury, rash, and discoloration, Neuro: Negative for headache, weakness, numbness, tingling, and seizure. 16:00 Abdomen/GI: Positive for abdominal pain, Negative for nausea, vomiting, and diarrhea. Exam: 16:00 Constitutional: This is a well developed, well nourished patient who is awake, alert, jr8 and in no acute distress. Cardiovascular: Regular rate and rhythm with a normal S1 and S2. No gallops, murmurs, or rubs. Normal PMI, no JVD. No pulse deficits. Respiratory: Lungs have equal breath sounds bilaterally, clear to auscultation and percussion. No rales, rhonchi or wheezes noted. No increased work of breathing, no retractions or nasal flaring. Back: No spinal tenderness. No costovertebral tenderness. Full range of motion. Skin: Warm, dry with normal turgor. Normal color with no rashes, no lesions, and no evidence of cellulitis. MS/ Extremity: Pulses equal, no cyanosis. Neurovascular intact. Full, normal range of motion. Neuro: Awake and alert, GCS 15, oriented to person. Cranial nerves II-XII grossly intact. Motor strength 5/5 in all extremities. Sensory grossly intact. 16:00 Abdomen/GI: Inspection: abdomen appears normal, Bowel sounds: active, all quadrants, Palpation: soft, in all quadrants, mild abdominal tenderness, in the suprapubic area, right lower quadrant and left lower quadrant, mass, is not appreciated, rebound tenderness, is not appreciated, voluntary guarding, is not appreciated, involuntary guarding, is not appreciated, no appreciated organomegaly, Indicators: McBurney's point is not tender, Marie's sign is negative, Liver: tenderness, is not appreciated. Vital Signs: 14:09 BP 136 / 71; Pulse 72; Resp 18; Temp 98.2(O); Pulse Ox 98% on R/A; Weight 58.97 kg; ld1 Height 5 ft. 5 in. (165.10 cm); Pain 0/10; 16:53 BP 146 / 76; Pulse 62; Resp 16; Pulse Ox 100% ; vg1 14:09 Body Mass Index 21.63 (58.97 kg, 165.10 cm) ld1 MDM: 15:03 Patient medically screened. jr8 17:14 Data reviewed: vital signs, nurses notes, lab test result(s), radiologic studies, CT jr8 scan. Data interpreted: Pulse oximetry: on room air is 100 %. Interpretation: normal. Counseling: I had a detailed discussion with the patient and/or guardian regarding: the historical points, exam findings, and any diagnostic results supporting the discharge/admit diagnosis, lab results, radiology results, the need for outpatient follow up, a pmo manager, to return to the emergency department if symptoms worsen or persist or if there are any questions or concerns that arise at home. 17:45 Special discussion: Based on the patient's Hx, exam, and Dx evaluation, there is no jr8 indication for emergent surgery or inpatient Tx. It is understood by the patient/guardian that if the Sx's persist or worsen they need to return immediately for re-evaluation. ED course: Discussed with and patient that there is no acute findings on the CAT scan. Blood work without acute findings as well. Patient does seem to have mild UTI which will be treated. Needs to follow-up with PCP in the next 1 to 2 days. If patient were to start running fever or the pain would come back to come back for further evaluation. understands and is good with the plan at this time.. 06/01 15:14 Order name: Basic Metabolic Panel; Complete Time: 16:15 jr8 06/01 15:14 Order name: CBC with Diff; Complete Time: 16:02 8 06/01 15:14 Order name: Hepatic Function; Complete Time: 16:15 jr8 06/01 15:14 Order name: Lipase; Complete Time: 16:15 jr8 06/01 15:14 Order name: Urine Microscopic Only jr8 06/01 17:41 Order name: Urine Dipstick-Ancillary; Complete Time: 17:44 EDAZ 06/01 15:14 Order name: Labs collected and sent; Complete Time: 15:37 jr8 06/01 15:14 Order name: Urine Dipstick-Ancillary (obtain specimen); Complete Time: 17:41 8 06/01 16:15 Order name: CT Abd/Pelvis - Without Contrast; Complete Time: 17:13 jr8 Administered Medications: No medications were administered Disposition: 06/02 07:04 Co-signature as Attending Physician, Karen Gonzalez MD I agree with the assessment and sp3 plan of care. Disposition Summary: 06/01/21 17:46 Discharge Ordered Location: Home jr8 Problem: new jr8 Symptoms: have improved jr8 Condition: Stable jr8 Diagnosis - Lower abdominal pain, unspecified jr8 - UTI/ Urinary tract infection, site not specified jr8 Followup: jr8 - With: Dimas Funes MD - When: 1 - 2 days - Reason: Recheck today's complaints, Continuance of care, Re-evaluation by your physician Followup: jr8 - With: Jack Escalona MD - When: 2 - 3 days - Reason: Recheck today's complaints, Continuance of care, Re-evaluation by your physician Discharge Instructions: - Discharge Summary Sheet jr8 - Abdominal Pain, Adult jr8 - Urinary Tract Infection, Adult jr8 Forms: - Medication Reconciliation Form jr8 - Thank You Letter jr8 - Antibiotic Education jr8 - Prescription Opioid Use jr8 Prescriptions: - Macrobid 100 mg Oral Capsule - take 1 capsule by ORAL route every 12 hours for 7 days; 14 capsule; Refills: 0, jr8 Product Selection Permitted Signatures: Dispatcher [employer] EDMS Chadd Kent PA PA jr8 Jaz Davison RN RN ld1 Karen Gonzalez MD MD sp3 Corrections: (The following items were deleted from the chart) 06/01 14:12 14:11 PSHx: None; ld1 ld1
--- NOTE | 2021-06-01 17:47 | ER ---
Nurse's Notes [facility] Name: Yelitza Kellogg Age: 80 yrs Sex: Female : 1940 Arrival Date: 06/01/2021 Time: 14:00 Bed 10 Private MD: Diagnosis: Lower abdominal pain, unspecified;UTI/ Urinary tract infection, site not specified Presentation: 06/01 14:09 Chief complaint: Spouse and/or significant other states: Pt presents confused. ld1 states pt was c/o LLQ pain around noon today. Coronavirus screen: At this time, the client does not indicate any symptoms associated with coronavirus-19. Ebola Screen: No symptoms or risks identified at this time. Initial Sepsis Screen: Does the patient meet any 2 criteria? No. Patient's initial sepsis screen is negative. Does the patient have a suspected source of infection? No. Patient's initial sepsis screen is negative. Risk Assessment: Do you want to hurt yourself or someone else? Patient reports no desire to harm self or others. Onset of symptoms was June 01, 2021. 14:09 Method Of Arrival: Ambulatory ld1 14:09 Acuity: ELIAS 3 ld1 Triage Assessment: 14:11 General: Appears in no apparent distress. comfortable, Behavior is calm, cooperative, ld1 appropriate for age. Pain: Denies pain. EENT: No signs and/or symptoms were reported regarding the EENT system. Neuro: Level of Consciousness is awake, alert, obeys commands, confused, Oriented to person. Cardiovascular: Capillary refill < 3 seconds Patient's skin is warm and dry. Respiratory: Airway is patent Respiratory effort is even, unlabored, Respiratory pattern is regular, symmetrical. GI: Abdomen is flat, non-distended, Reports lower abdominal pain. : No signs and/or symptoms were reported regarding the genitourinary system. Derm: No signs and/or symptoms reported regarding the dermatologic system. Musculoskeletal: No signs and/or symptoms reported regarding the musculoskeletal system. Historical: - Allergies: 14:11 Donepezil; ld1 - Home Meds: 14:11 None [Active]; ld1 - PMHx: 14:11 Alzheimers; Chronic pain; Dementia; Hypertension; ld1 - PSHx: 14:11 bladder lift; ld1 - Immunization history:: Adult Immunizations up to date, Client reports receiving the 2nd dose of the Covid vaccine. - Social history:: Smoking status: Patient denies any tobacco usage or history of. Screenin:41 Abuse screen: Denies threats or abuse. Nutritional screening: No deficits noted. vg1 Tuberculosis screening: No symptoms or risk factors identified. Fall Risk No fall in past 12 months (0 pts). No secondary diagnosis (0 pts). IV access (20 points). Ambulatory Aid- None/Bed Rest/Nurse Assist (0 pts). Gait- Normal/Bed Rest/Wheelchair (0 pts) Mental Status- Overestimates/Forgets Limitations (15 pts.). Total Jarvis Fall Scale indicates Low Risk Score (25-44 pts). Fall prevention measures have been instituted. Side Rails Up X 2 Placed close to Nursing Station Family Present and informed to notify staff if they need to leave bedside. Assessment: 15:15 General: Appears in no apparent distress. comfortable, Behavior is calm, cooperative. vg1 Pain: Complains of pain in suprapubic area, right lower quadrant and left lower quadrant and lower back Unable to use pain scale. Does not appear to understand pain scale. Pt stated 'it just hurts bad'. Neuro: Level of Consciousness is awake, alert, obeys commands, Oriented to person, place, situation. Cardiovascular: Patient's skin is warm and dry. Respiratory: Airway is patent is compromised Respiratory effort is even, unlabored. GI: Bowel sounds present X 4 quads. Abdomen is tender to palpation in suprapubic area, right lower quadrant and left lower quadrant Patient currently denies diarrhea, vomiting. : No signs and/or symptoms were reported regarding the genitourinary system. EENT: No signs and/or symptoms were reported regarding the EENT system. Derm: Skin is pink, warm \T\ dry. Musculoskeletal: Circulation, motion, and sensation intact. 16:53 Reassessment: Patient appears in no apparent distress at this time. No changes from vg1 previously documented assessment. Patient and/or family updated on plan of care and expected duration. Pain level reassessed. Patient is alert, oriented x 3, equal unlabored respirations, skin warm/dry/pink. Vital Signs: 14:09 BP 136 / 71; Pulse 72; Resp 18; Temp 98.2(O); Pulse Ox 98% on R/A; Weight 58.97 kg; ld1 Height 5 ft. 5 in. (165.10 cm); Pain 0/10; 16:53 BP 146 / 76; Pulse 62; Resp 16; Pulse Ox 100% ; vg1 14:09 Body Mass Index 21.63 (58.97 kg, 165.10 cm) ld1 ED Course: 14:00 Patient arrived in ED. as 14:11 Triage completed. ld1 14:11 Arm band placed on left wrist. ld1 15:03 Chadd Kent PA is PHCP. jr8 15:03 Karen Gonzalez MD is Attending Physician. jr8 15:13 Kalina Huang, RN is Primary Nurse. vg1 15:38 Initial lab(s) drawn, by me, sent to lab. Missed attempt(s): 22 gauge in left vg1 antecubital area. 15:42 Patient has correct armband on for positive identification. Bed in low position. Call vg1 light in reach. Adult w/ patient. 16:44 CT Abd/Pelvis - Without Contrast In Process Unspecified. EDMS 17:46 Dimas Funes MD is Referral Physician. jr8 17:46 Jack Escalona MD is Referral Physician. jr8 18:07 No provider procedures requiring assistance completed. Patient did not have IV access ld1 during this emergency room visit. Administered Medications: No medications were administered Outcome: 17:46 Discharge ordered by . jr8 18:07 Discharged to home ambulatory. ld1 18:07 Condition: stable 18:07 Discharge instructions given to patient, Instructed on discharge instructions, follow up and referral plans. medication usage, Demonstrated understanding of instructions, follow-up care, medications. 18:07 Patient left the ED. ld1 Addendum: 06/05/2021 07:40 Addendum: Culture Results: Positive urine culture. No further action required. Bacteria e b sensitive to prescribed antibiotic. Signatures: Dispatcher [employer] EDMS Rosmery Gurrola Josh, PA PA jr8 Kamryn Dotson Victoria, RN RN vg1 Jaz Davison RN RN ld1 Corrections: (The following items were deleted from the chart) 06/01 14:12 14:11 PSHx: None; ld1 ld1
[2021-06-01 18:16] VITALS: TEMP 98.2
[2021-06-01 18:16] LABS: Urine Bacteria <20 /HPF (<20); Urine RBC <5 /HPF (NONE SEEN)
[2021-06-01 18:18] VITALS: BP 146/76; O2SAT 100
== END 2021-06-01 18:07 | disposition home or self-care (01) ==
LOC: ER 13:58
DX: N39.0 Urinary tract infection, site not specified (principal)
CPT/HCPCS: 36415; 74176; 80048; 80076; 81003; 81015; 83690; 85025; 87077; 87086; 87088; 87186; 99283

== ENCOUNTER 2021-06-07 02:16 | Emergency (ER) | payer OTHER ==
--- OUTSIDE RECORDS SUMMARY | 2021-06-07 02:19 | XMS REPORT | Continuity of Care Document ---
:1940 Author Organization [facility] t Address [address] [place] [address] Care Team Providers Name Role Phone Asked, Pcp Primary Care Physician Unavailable Pcp, Does Not Have A Attending Clinician Jack Zaldivar Attending Clinician Lab, Fam Pob I Attending Clinician Unavailable Problems Condition Condition Condition Status Onset Resolution Last Treating Co mments Source Name Details Category Date Date Treatment Clinician Date Blood loss Blood loss Disease Active 0 M ethodi anemia anemia 12-31 00:00: Hospita [...] Comments Source Alcohol intake 2016-12-31 2016-12-31 Current [facility] 00:00:00 00:00:00 non-drinker of Hospital alcohol (finding) Sex Ass[birth year] At [birth year] [facility] 00:00:00 00:00:00 Hospital Smoking Status Start Date Stop Date Source Never smoker [facility] Medications Ordered Filled Start Stop Current Ordering Indication Dosage Frequency Signature Comments Components Source Medication Medication Date Date Medication? Clinician (SIG) Name Name No known No [facility] No known No Method[facility] medications [facility] Procedures This patient has no known procedures. Plan of Care Planned Activity Planned Date Details Comments Source Future Scheduled Test COVID-19 VACCINE (1) [facility] [code = COVID-19 VACCINE (1)] Future Scheduled Test SHINGLES VACCINES (#1) [facility] [code = SHINGLES VACCINES (#1)] Future Scheduled Test COVID-19 VACCINE (1) [facility] [code = COVID-19 VACCINE (1)] Future Scheduled Test SHINGLES VACCINES (#1) [facility] [code = SHINGLES VACCINES (#1)] Future Scheduled Test 65+ PNEUMOCOCCAL [facility] VACCINE (1 of 1 - PPSV23) [code = 65+ PNEUMOCOCCAL VACCINE (1 of 1 - PPSV23)] Future Scheduled Test INFLUENZA VACCINE [code [facility] = INFLUENZA VACCINE] Future Scheduled Test 65+ PNEUMOCOCCAL [facility] VACCINE (1 of 1 - PPSV23) [code = 65+ PNEUMOCOCCAL VACCINE (1 of 1 - PPSV23)] Future Scheduled Test INFLUENZA VACCINE [code [facility] = INFLUENZA VACCINE] Encounters Start End Encounter Admission Attending Care Care Encounter Source Date/Time Date/Time Type Type Clinicians Facility Department ID 2020-04-11 2020-04-11 Telephone [facility] [id number] 00:00:00 00:00:00 Patient [facility] [id number] Does Not HOSPITAL [id number] Have A [id number] 2020-04-10 2020-04-10 Telephone MAG[facility] [id number] 00:00:00 00:00:00 Eva [place] [id number] HOSPITAL [id number] 2020-04-07 2020-04-07 Laboratory Lab, [facility] [id number] 07:48:20 08:08:20 Only Fam [facility] [id number] [place] [id number] [facility] [phone] [place] [address] [address] One Results This patient has no known results.
[2021-06-07 03:29] LABS: Urine Blood Trace-intact (Negative); Urine Glucose Negative (Negative); Urine Protein Negative (Negative); Urine pH 5.5 (5.0-7.0)
[2021-06-07 04:33] LABS: Absolute Lymphocytes (CBC) 1.6 K/uL (0.7-4.9); Basophils % 0.6 % (0-1.3); Hematocrit 33.6 % (36.0-45.0); Lymphocytes % 24.6 % (15.3-44.8); MPV 7.8 fL (7.6-11.3); RBC Red Blood Cell Count 3.77 M/uL (3.86-4.86)
[2021-06-07 04:49] LABS: Potassium 3.9 mmol/L (3.5-5.1)
--- NOTE | 2021-06-07 05:03 | ER ---
Nurse's Notes [facility] Name: Yelitza Kellogg Age: 80 yrs Sex: Female : 1940 Arrival Date: 06/07/2021 Time: 02:25 Bed 25 Private MD: Diagnosis: Pain left leg Presentation: 06/07 02:15 Note EMS staff reports pt has h/o alzheimer's and c/o nontraumatic leg pain; reports cc4 that is enroute; pt is smiling; denies any complaints of pain; disoriented; approx. 1+ pitting edema noted BLE. Onset of symptoms was June 07, 2021. Care prior to arrival: None. Activity prior to arrival: confused, Smiling; denies any compaints; disoriented. 02:15 Method Of Arrival: EMS: [facility] cc4 02:15 Method Of Arrival: Stretcher cc4 02:15 Initial Sepsis Screen: Does the patient have a suspected source of infection? No. cc4 Patient's initial sepsis screen is negative. 02:15 Coronavirus screen: Vaccine status: Patient reports receiving the 2nd dose of the covid cc4 vaccine. Client denies travel out of the [place] in the last 14 days. At this time, the client does not indicate any symptoms associated with coronavirus-19. The client is unsure as to whether or not they have had previous COVID-19 testing. Ebola Screen: Unable to complete the Ebola screening because: The patient is disoriented. Initial Sepsis Screen: Does the patient meet any 2 criteria? No. Patient's initial sepsis screen is negative. Risk Assessment: Do you want to hurt yourself or someone else? Patient reports no desire to harm self or others. 02:15 Acuity: Unassigned cc4 02:15 Chief complaint:. cc4 Triage Assessment: 02:15 Pain: Denies pain. EENT: No deficits noted. Nares are clear Oral mucosa is moist. cc4 Neuro: Level of Consciousness is awake, alert, Oriented to disoriented.. Historical: - Immunization history:: Client reports receiving the 2nd dose of the Covid vaccine. - Social history:: The patient is unemployed, Patient/guardian denies using. Screenin:30 Abuse screen: Denies threats or abuse. Nutritional screening: No deficits noted. cc4 Tuberculosis screening: No symptoms or risk factors identified. Fall Risk Mental Status-. Assessment: 04:20 General: Appears in no apparent distress. comfortable, well groomed, well developed, cc4 well nourished, Behavior is calm, cooperative, Disoriented; EMS personnel reports h/o alzheimer's; . Pain: Denies pain. Neuro: Level of Consciousness is awake, alert, obeys commands, Smiling. Oriented to Disorineted.. Cardiovascular: No deficits noted. Capillary refill Patient's skin is warm and dry. Respiratory: No deficits noted. Airway is patent. GI: No deficits noted. Abdomen is non-distended, Nontender. : No deficits noted. 05:25 Reassessment: Patient appears in no apparent distress at this time. Patient denies pain cc4 at this time. Vital Signs: 02:15 BP 150 / 79; Pulse 65; Resp 20; Temp 97.9; Pulse Ox 98% on R/A; Weight 60.33 kg; Height cc4 5 ft. 6 in. (167.64 cm); 02:15 BP 150 / 79; Pulse 65; Resp 20; Temp 97.9; Pulse Ox 98% on R/A; Weight 60.33 kg; Height cc4 5 ft. 6 in. (167.64 cm); 04:00 BP 150 / 79; Pulse 65; Resp 20; Pulse Ox 100% on R/A; cc4 05:15 BP 108 / 77; Pulse 65; Resp 18; Temp 97.8; Pulse Ox 100% on R/A; cc4 02:15 Body Mass Index 21.47 (60.33 kg, 167.64 cm) cc4 Vitals: 02:15 Cardiac Rhythm Assessment Regular. cc4 ED Course: 02:15 No provider procedures requiring assistance completed. cc4 02:15 Patient has correct armband on for positive identification. Placed in gown. Bed in low cc4 position. Side rails up X2. 02:25 Patient arrived in ED. mw2 02:29 Jean Denson MD is Attending Physician. pkl 02:37 Jenn Aguilar is Primary Nurse. cc4 03:20 Arm band placed on left wrist. Urine obtained. Labs ordered per protocol. Ultrasound. cc4 03:49 D-Dimer Sent. cc4 03:49 Chem 7 Sent. cc4 03:49 CBC with Diff Sent. cc4 03:51 US Extremity Venous Unilateral Ltd Sent. cc4 03:52 COVID-19 : Document "Date of Symptom Onset" if Symptomatic. Sent. cc4 03:54 US Extremity Venous Unilateral Ltd In Process Unspecified. EDMS 05:25 IV discontinued. cc4 06:23 Triage completed. cc4 Administered Medications: No medications were administered Outcome: 02:15 Condition: stable cc4 05:03 Discharge ordered by . pkjonathan 05:25 Discharged to home with family. cc4 05:25 Condition: good 05:25 Discharge instructions given to family, Instructed on discharge instructions, Demonstrated understanding of instructions. 05:55 Patient left the ED. mw2 Signatures: Dispatcher [employer] EDMS Jean Denson MD MD pkDom Garcia mw2 Jenn Aguilar cc Corrections: (The following items were deleted from the chart) 06:25 06:23 Acuity: ELIAS 1 cc4 cc4 06:28 06:21 Chief complaint: EMS states: EMS states, "She was complaining of nontraumatic leg cc4 pain"; pt smiling \\T\\ disoriented; EMS reports pt has alzheimer's; pt denying pain at present time. cc4 06:32 06:32 PMHx: Hypertension; cc4 cc4 06:32 06:32 PMHx: Chronic pain; cc4 cc4 06:32 06:32 PMHx: Dementia; cc4 cc4 06:32 06:32 PMHx: Alzheimers; cc4 cc4 06:32 06:32 PSHx: Bladder lift; cc4 cc4
--- NOTE | 2021-06-07 05:03 | EDPHYS ---
Physician Documentation [facility] Name: Yelitza Kellogg Age: 80 yrs Sex: Female : 1940 Arrival Date: 06/07/2021 Time: 02:25 Bed 25 Private MD: ED Physician Jean Denson HPI: 06/07 02:41 This 80 yrs old Female presents to ER via Unassigned with unknown complaint. pkl 02:41 The patient presents with pain, that is acute. The complaints affect the left leg. pkl Context: said patient has H/O of Alzheimer. Woke up tonight complaining pain in her left leg. Denies any injury. Brought in by Ambulance. Pain resolved on arrival to ER. said she rad similar episode 1 week ago, and came to ER. Patient was diagnosed with UTI. Historical: - Immunization history:: Client reports receiving the 2nd dose of the Covid vaccine. - Social history:: The patient is unemployed, Patient/guardian denies using. ROS: 02:41 Eyes: Negative for injury, pain, redness, and discharge, ENT: Negative for injury, pkl pain, and discharge, Neck: Negative for injury, pain, and swelling, Cardiovascular: Negative for chest pain, palpitations, and edema, Respiratory: Negative for shortness of breath, cough, wheezing, and pleuritic chest pain, Abdomen/GI: Negative for abdominal pain, nausea, vomiting, diarrhea, and constipation, Back: Negative for injury and pain, : Negative for injury, bleeding, discharge, and swelling. 02:41 MS/extremity: Positive for pain, of the left leg. 02:41 Skin: Negative for rash. 02:41 Neuro: Negative for altered mental status, loss of consciousness. Exam: 02:41 Head/Face: Normocephalic, atraumatic. Eyes: Pupils equal round and reactive to light, pkl extra-ocular motions intact. Lids and lashes normal. Conjunctiva and sclera are non-icteric and not injected. Cornea within normal limits. Periorbital areas with no swelling, redness, or edema. ENT: Nares patent. No nasal discharge, no septal abnormalities noted. Tympanic membranes are normal and external auditory canals are clear. Oropharynx with no redness, swelling, or masses, exudates, or evidence of obstruction, uvula midline. Mucous membranes moist. Neck: Trachea midline, no thyromegaly or masses palpated, and no cervical lymphadenopathy. Supple, full range of motion without nuchal rigidity, or vertebral point tenderness. No Meningismus. Chest/axilla: Normal chest wall appearance and motion. Nontender with no deformity. No lesions are appreciated. Cardiovascular: Regular rate and rhythm with a normal S1 and S2. No gallops, murmurs, or rubs. Normal PMI, no JVD. No pulse deficits. Respiratory: Lungs have equal breath sounds bilaterally, clear to auscultation and percussion. No rales, rhonchi or wheezes noted. No increased work of breathing, no retractions or nasal flaring. Abdomen/GI: Soft, non-tender, with normal bowel sounds. No distension or tympany. No guarding or rebound. No evidence of tenderness throughout. Back: No spinal tenderness. No costovertebral tenderness. Full range of motion. Skin: Warm, dry with normal turgor. Normal color with no rashes, no lesions, and no evidence of cellulitis. MS/ Extremity: Pulses equal, no cyanosis. Neurovascular intact. Full, normal range of motion. Neuro: Awake and alert, GCS 15, oriented to person, place, time, and situation. Cranial nerves II-XII grossly intact. Motor strength 5/5 in all extremities. Sensory grossly intact. Cerebellar exam normal. Normal gait. Vital Signs: 02:15 BP 150 / 79; Pulse 65; Resp 20; Temp 97.9; Pulse Ox 98% on R/A; Weight 60.33 kg; Height cc4 5 ft. 6 in. (167.64 cm); 02:15 BP 150 / 79; Pulse 65; Resp 20; Temp 97.9; Pulse Ox 98% on R/A; Weight 60.33 kg; Height cc4 5 ft. 6 in. (167.64 cm); 04:00 BP 150 / 79; Pulse 65; Resp 20; Pulse Ox 100% on R/A; cc4 05:15 BP 108 / 77; Pulse 65; Resp 18; Temp 97.8; Pulse Ox 100% on R/A; cc4 02:15 Body Mass Index 21.47 (60.33 kg, 167.64 cm) cc4 MDM: 02:29 Patient medically screened. pkl 05:00 Data reviewed: vital signs, nurses notes, lab test result(s), radiologic studies, pkl ultrasound. ED course: Patient not in any distress. Discussed lab and US results with patient and . Advised to follow up with PCP in 2 to 3 days. understood instructions. 06/07 02:40 Order name: CBC with Diff; Complete Time: 04:52 pkl 06/07 02:40 Order name: Chem 7; Complete Time: 04:50 pkl 06/07 02:40 Order name: D-Dimer; Complete Time: 04:45 pkl 06/07 02:45 Order name: COVID-19 : Document "Date of Symptom Onset" if Symptomatic. bb 06/07 03:28 Order name: Urine Dipstick-Ancillary; Complete Time: 03:52 EDMS 06/07 02:40 Order name: Urine Dipstick-Ancillary (obtain specimen); Complete Time: 03:52 pkl 06/07 02:40 Order name: US Extremity Venous Unilateral Ltd pkl 06/07 04:45 Order name: SARS-COV-2 RT PCR; Complete Time: 04:46 EDMS Administered Medications: No medications were administered Disposition Summary: 06/07/21 05:03 Discharge Ordered Location: Home pkl Problem: new pkl Symptoms: have improved pkl Condition: Stable pkl Diagnosis - Pain left leg pkl Followup: pkl - With: Private Physician - When: 2 - 3 days - Reason: Re-evaluation by your physician Forms: - Medication Reconciliation Form pkl - Thank You Letter pkl - Antibiotic Education pkl - Prescription Opioid Use pkl Signatures: Dispatcher [employer] EDND Jean Denson MD MD pkl Jenn Aguilar [facility] Corrections: (The following items were deleted from the chart) 03:45 02:45 CORONAVIRUS ordered. EDMS EDMS 06:32 06:32 PMHx: Hypertension; cc4 cc4 06:32 06:32 PMHx: Chronic pain; cc4 cc4 06:32 06:32 PMHx: Dementia; cc4 cc4 06:32 06:32 PMHx: Alzheimers; cc4 cc4 06:32 06:32 PSHx: Bladder lift; cc4 cc4
[2021-06-07 05:59] VITALS: BP 150/79; O2SAT 100
--- NOTE | 2021-06-07 08:24 | RAD REPORT ---
EXAM DESCRIPTION: US - Extremity Venous Uni Ltd - 06/07/2021 3:53 am CLINICAL HISTORY: PAIN Leg swelling and edema. COMPARISON: Extremity Venous Uni Ltd dated 12/14/2019 FINDINGS: Left lower extremity venous system was interrogated with Doppler technique. Normal flow, c ompressibility and augmentation was noted. There is no DVT present. IMPRESSION: No evidence of left lower extremity deep venous thrombosis.
== END 2021-06-07 05:55 | disposition home or self-care (01) ==
LOC: ER 02:16
DX: M79.605 Pain in left leg (principal); G30.9 Alzheimer's disease, unspecified; F02.80 Dementia in other diseases classified elsewhere, unspecified severity, without behavioral disturbance, psychotic disturbance, mood disturbance, and anxiety; Z20.822 Contact with and (suspected) exposure to COVID-19
CPT/HCPCS: 85025; 80048; 36415; 85379; 81003; 93971; 99284; U0003

== ENCOUNTER 2021-07-24 17:20 | Emergency (ER) | payer OTHER ==
[2021-07-24 19:03] LABS: Absolute Lymphocytes (CBC) 1.2 K/uL (0.7-4.9); Basophils % 0.6 % (0-1.3); Hematocrit 40.3 % (36.0-45.0); MPV 7.5 fL (7.6-11.3)
[2021-07-24 19:23] LABS: Potassium 3.3 mmol/L (3.5-5.1)
--- NOTE | 2021-07-24 19:38 | ER ---
Nurse's Notes [facility] Name: Yelitza Kellogg Age: 80 yrs Sex: Female : 1940 Arrival Date: 07/24/2021 Time: 17:25 Bed 5 Private MD: Diagnosis: Abdominal pain, Generalized Presentation: 07/24 18:04 Chief complaint: Patient states: pt's reports pt had diarrhea last night, also iw noticed some blood on her leg and was unsure where it came from, pt screams in pain when tries to touch her legs , pt got her covid booster shot yesterday. Ebola Screen: Patient negative for fever greater than or equal to 101.5 degrees Fahrenheit, and additional compatible Ebola Virus Disease symptoms Patient denies exposure to infectious person. Patient denies travel to an Ebola-affected area in the 21 days before illness onset. No symptoms or risks identified at this time. Initial Sepsis Screen: Does the patient meet any 2 criteria? No. Patient's initial sepsis screen is negative. Does the patient have a suspected source of infection? No. Patient's initial sepsis screen is negative. Risk Assessment: Do you want to hurt yourself or someone else? Patient reports no desire to harm self or others. Onset of symptoms was July 23, 2021. 18:04 Method Of Arrival: Wheelchair iw 18:04 Acuity: ELIAS 3 iw 19:41 Coronavirus screen: At this time, the client does not indicate any symptoms associated bs2 with coronavirus-19. Triage Assessment: 18:10 General: Appears distressed, uncomfortable, Behavior is agitated, anxious, bp uncooperative. Pain: Unable to use pain scale. Patient is disoriented. EENT: No deficits noted. Neuro: Level of Consciousness is awake, confused, Oriented to person. Cardiovascular: No deficits noted. Respiratory: No deficits noted. GI: Parent/caregiver reports the patient having diarrhea. : Reports vaginal bleeding that is. Derm: No deficits noted. Musculoskeletal: No deficits noted. Historical: - Allergies: 18:10 No Known Allergies; iw - Social history:: Smoking status: Patient denies any tobacco usage or history of. Screenin:53 Abuse screen: Denies threats or abuse. Denies injuries from another. Nutritional bp screening: No deficits noted. Tuberculosis screening: No symptoms or risk factors identified. Fall Risk None identified. Assessment: 18:10 General: SEE TRIAGE NOTE. bp Vital Signs: 18:10 BP 143 / 80; Pulse 79; Resp 16; Temp 98.5; Pulse Ox 100% on R/A; iw 19:59 BP 121 / 91; Pulse 66; Resp 16; Temp 98.6; Pulse Ox 98% ; Pain 5/10; bs2 ED Course: 17:25 Patient arrived in ED. as 17:33 Raúl Diego MD is Attending Physician. kdr 17:49 Alvarado Bhat, RN is Primary Nurse. bp 18:07 Triage completed. iw 18:40 Inserted saline lock: 22 gauge in right forearm, using aseptic technique. Blood bp collected. 18:53 Patient has correct armband on for positive identification. Bed in low position. Call bp light in reach. Side rails up X2. Adult w/ patient. 19:15 Attending Physician role handed off by Raúl Diego MD sp3 19:15 Karen Gonzalez MD is Attending Physician. sp3 19:30 Primary Nurse role handed off by Alvarado Bhat RN mw2 19:40 Theresa Batres RN is Primary Nurse. bs2 19:40 Type And Screen Sent. bs2 19:40 Abo/rh Typing Sent. bs2 19:41 No provider procedures requiring assistance completed. bs2 19:41 Arm band placed on right wrist. bs2 Administered Medications: 19:58 Drug: morphine 2 mg Route: IVP; Site: right forearm; bs2 19:59 Follow up: Response: No adverse reaction bs2 Outcome: 19:37 Discharge ordered by . sp3 21:08 Patient left the ED. bb Signatures: Raúl Diego MD MD kdr Martinez, Amelia as Ballard, Brenda, RN RN bb Amy Santos RN RN iw Alvarado Bhat, SANYD DELGADO bp Dom Kaur mw2 Karen Gonzalez MD MD sp3 Theresa Batres RN RN bs2 Corrections: (The following items were deleted from the chart) 18:08 18:04 Chief complaint: Patient states: pt's reports pt had diarrhea last night, iw also noticed some blood on her leg and was unsure where it came from, pt screams in pain when tries to touch her legs iw
--- NOTE | 2021-07-24 19:38 | EDPHYS ---
Physician Documentation [facility] Name: Yelitza Kellogg Age: 80 yrs Sex: Female : 1940 Arrival Date: 07/24/2021 Time: 17:25 Bed 5 Private MD: ED Physician Karen Gonzalez HPI: 07/24 18:35 This 80 yrs old Female presents to ER via Wheelchair with complaints of kdr Abdominal pain. 18:37 Patient has been having intermittent abdominal pain for the past year or more. Recently kdr the patient has continued to have these recurrent and intermittent episodes. She had 1 such episode this morning and was screaming in pain. According to her she does not allow him to intervene at that time and he opted to wait at home for period of time to see if fully resolved. He states that they have been evaluated multiple times for this problem including evaluation by Dr. Luciano without a specific etiology being found. Today she was having some diarrhea as well. This is happened previously as well. During the course of the cleaning up the patient, it was noted she had some what appeared to be red streaks of blood on her leg. He is unsure of where the apparent blood may have originated. Onset: The symptoms/episode began/occurred suddenly, this morning. Severity of symptoms: At their worst the symptoms were severe incapacitating just prior to arrival, in the emergency department the symptoms have resolved and did so earlier today. The patient has experienced similar episodes in the past, multiple times. The patient has been recently seen by a physician: the patient's primary care provider, Patient had been seen by Dr. Sheehan however they will not be following up with Dr. Morin. With patient's history of dementia, the has been frustrated with her management. Further, he has had her evaluated for this abdominal pain multiple times without a clear etiology being found. Historical: - Allergies: 18:10 No Known Allergies; iw - Social history:: Smoking status: Patient denies any tobacco usage or history of. ROS: 18:37 Constitutional: Negative for fever, chills, and weight loss -review of systems is given kdr by the who is at bedside Eyes: Negative for injury, pain, redness, and discharge, Neck: Negative for injury, pain, and swelling, Cardiovascular: Negative for chest pain, palpitations, and edema, Respiratory: Negative for shortness of breath, cough, wheezing, and pleuritic chest pain, Back: Negative for injury and pain, : Negative for injury, bleeding, discharge, and swelling, MS/Extremity: Negative for injury and deformity, Skin: Negative for injury, rash, and discoloration, Allergy/Immunology: Negative for hives, rash, and allergies, Endocrine: Negative for neck swelling, polydipsia, polyuria, polyphagia, and marked weight changes, Hematologic/Lymphatic: Negative for swollen nodes, abnormal bleeding, and unusual bruising. 18:37 Abdomen/GI: Positive for diarrhea. Exam: 18:42 Constitutional: This is a well developed, well nourished patient who is awake, alert, kdr and in no acute distress. Head/Face: Normocephalic, atraumatic. Eyes: Pupils equal round and reactive to light, extra-ocular motions intact. Lids and lashes normal. Conjunctiva and sclera are non-icteric and not injected. Cornea within normal limits. Periorbital areas with no swelling, redness, or edema. Neck: Trachea midline, no thyromegaly or masses palpated, and no cervical lymphadenopathy. Supple, full range of motion without nuchal rigidity, or vertebral point tenderness. No Meningismus. Chest/axilla: Normal chest wall appearance and motion. Nontender with no deformity. No lesions are appreciated. Cardiovascular: Regular rate and rhythm with a normal S1 and S2. No gallops, murmurs, or rubs. Normal PMI, no JVD. No pulse deficits. Respiratory: Lungs have equal breath sounds bilaterally, clear to auscultation and percussion. No rales, rhonchi or wheezes noted. No increased work of breathing, no retractions or nasal flaring. Abdomen/GI: Soft, non-tender, with normal bowel sounds. No distension or tympany. No guarding or rebound. No evidence of tenderness throughout. Back: No spinal tenderness. No costovertebral tenderness. Full range of motion. Skin: Warm, dry with normal turgor. Normal color with no rashes, no lesions, and no evidence of cellulitis. MS/ Extremity: Pulses equal, no cyanosis. Neurovascular intact. Full, normal range of motion. Neuro: Awake and alert, GCS 15, oriented to person, place, time, and situation. Cranial nerves II-XII grossly intact. Motor strength 5/5 in all extremities. Sensory grossly intact. Cerebellar exam normal. Normal gait. Psych: Awake, alert, with orientation to person, place and time. Behavior, mood, and affect are within normal limits. Vital Signs: 18:10 BP 143 / 80; Pulse 79; Resp 16; Temp 98.5; Pulse Ox 100% on R/A; iw 19:59 BP 121 / 91; Pulse 66; Resp 16; Temp 98.6; Pulse Ox 98% ; Pain 5/10; bs2 MDM: 19:15 Patient medically screened. sp3 19:34 Data reviewed: vital signs, nurses notes. ED course: Patient signed out to me by sp3 daytime physician. Patient seen and examined and abdomen is soft nontender nondistended with no peritoneal signs. Patient states that she still has mild pain. Will administer 2 mg of morphine and discharge patient home with [employer] follow-up. Patient's work-up has been reviewed including laboratory values which demonstrate no significant abnormality.. 07/24 17:34 Order name: Abo/rh Typing [facility] 07/24 17:34 Order name: Basic Metabolic Panel; Complete Time: 19:25 [facility] 07/24 17:34 Order name: CBC with Diff; Complete Time: 19:25 [facility] 07/24 17:34 Order name: Type And Screen [facility] 07/24 17:34 Order name: IV Saline Lock; Complete Time: 18:52 [facility] 07/24 17:34 Order name: Labs collected and sent; Complete Time: 18:52 [facility] 07/24 17:34 Order name: NPO; Complete Time: 18:52 kdr Administered Medications: 19:58 Drug: morphine 2 mg Route: IVP; Site: right forearm; bs2 19:59 Follow up: Response: No adverse reaction bs2 Disposition Summary: 07/24/21 19:37 Discharge Ordered Location: Home sp3 Condition: Stable sp3 Diagnosis - Abdominal pain, Generalized sp3 Followup: sp3 - With: Private Physician - When: - Reason: Recheck today's complaints Discharge Instructions: - Discharge Summary Sheet sp3 - Abdominal Pain, Adult sp3 Forms: - Medication Reconciliation Form sp3 - Thank You Letter sp3 - Antibiotic Education sp3 - Prescription Opioid Use sp3 Signatures: Dispatcher [employer] EDMS Raúl Diego MD MD kdr Amy Santos RN RN iw Alvarado Bhat RN RN bp Karen Gonzalez MD MD sp3 Theresa Batres RN RN bs2 Corrections: (The following items were deleted from the chart) 18:54 17:34 ABO/RH typing ordered. EDMS EDMS 19:41 17:34 Urine Dipstick-Ancillary ordered. kdr bs2
[2021-07-24] MEDS ORDERED: MORPHINE 2 MG/ML SYR ONE (20:50)
[2021-07-24 21:22] VITALS: BP 121/91; TEMP 98.6; O2SAT 98
== END 2021-07-24 21:08 | disposition home or self-care (01) ==
LOC: ER 17:20
DX: R10.84 Generalized abdominal pain (principal); R19.7 Diarrhea, unspecified; F03.90 Unspecified dementia, unspecified severity, without behavioral disturbance, psychotic disturbance, mood disturbance, and anxiety
CPT/HCPCS: 85025; 80048; 36415; 86900; 86850; 86901; 96374; 99284; J2270

== ENCOUNTER 2021-11-21 17:46 | Emergency (ER) | payer OTHER ==
--- OUTSIDE RECORDS SUMMARY | 2021-11-21 17:49 | XMS REPORT | Continuity of Care Document ---
:1940 Author Organization [facility] t Address [address] [place] [address] Care Team Providers Name Role Phone Asked, Pcp Primary Care Physician Unavailable Janet SOLITARIO Attending Clinician Unavailable NEREIDA JESUS Attending Clinician Unavailable NEREIDA JESUS Attending Clinician Unavailable Pcp, Does Not Have A Attending Clinician Jack Zaldivar Attending Clinician Lab, Fam Pob I Attending Clinician Unavailable Willie LIM Attending Clinician WILLIE Attending Clinician Unavailable Payers Payer Name Policy Type Policy Number Effective Date Expiration Date S max MEDICARE PART A \T\ [id number] 2007 B 00:00:00 HOLLISTER [id number] 2015 [employer] 00:00:00 Problems Condition Condition Condition Status Onset Resolution Last Treating Co mments Source Name Details Category Date Date Treatment Clinician Date Fibrositis Fibrositis Disease Active M ethodi 12-31 00:00: Hospita 00 l Inflammati Inflammati Disease Active 0 M ethodi on of on of 12-31 sacroiliac sacroiliac 00:00: Ho spita joint joint 00 l Blood loss Blood loss Disease Active 0 M ethodi anemia anemia 12-31 00:00: Hospita 00 l Hyponatrem Hyponatrem Disease Active 0 M ethodi ia ia 12-31 00:00: Hospita 00 l Alzheimer' Alzheimer' Disease Active 0 M ethodi s dementia s dementia 4-09 st 00:00: Hospita 00 l Accelerate Accelerate Disease Active M ethodi d d 12-31 hypertensi hypertensi 00:00: Ho spita on on 00 l Bilateral Bilateral Disease Active Uni vers foot pain foot pain -13 ity of 00:00: [address] Allergies, Adverse Reactions, Alerts Allergy Allergy Status Severity Reaction(s) Onset Inactive Treating Comm ents Source Name Type Date Date Clinician NO KNOWN Drug Active [facility] ALLERGIE Class ity of [facility] Social History Social Habit Start Date Stop Date Quantity Comments Source Sex Assigned At [facility] Exposure to Yes [facility] SARS-CoV-2 (event) Medica l Branch Alcohol intake 2016-02-04 2016-02-04 [facility] 00:00:00 00:00:00 [facility] Smoking Status Start Date Stop Date Source Never smoker [facility] Medications Ordered Filled Start Stop Current Ordering Indication Dosage Frequency Signature Comments Components Source Medication Medication Date Date Medication? Clinician (SIG) Name Name cyclobenzap Yes Univer s rine 5-16 ity of (FLEXERIL) 00:00: [place] 10 mg 00 Medical tablet Branch cyclobenzap Yes Univer s rine 5-16 ity of (FLEXERIL) 00:00: [place] 10 mg 00 Medical tablet Branch cyclobenzap Yes Univer s rine 5-16 ity of (FLEXERIL) 00:00: [place] 10 mg 00 Medical tablet Branch ACETAMINOPH Yes Take by Un aleta EN (TYLENOL 5-13 mouth. ity of ORAL) 14:44: [address] ACETAMINOPH Yes Take by Un aleta EN (TYLENOL 5-13 mouth. ity of ORAL) 14:44: [address] ACETAMINOPH Yes Take by Un aleta EN (TYLENOL 5-13 mouth. ity of ORAL) 14:44: [address] No known No Methodi medications [facility]osp[facility] l Procedures This patient has no known procedures. Plan of Care Planned Activity Planned Date Details Comments Source Future Scheduled Test COVID-19 VACCINE (1) [facility] [code = COVID-19 VACCINE (1)] Future Scheduled Test SHINGLES VACCINES (#1) [facility] [code = SHINGLES VACCINES (#1)] Future Scheduled Test 65+ PNEUMOCOCCAL Me [facility] VACCINE (1 of 1 - PPSV23) [code = 65+ PNEUMOCOCCAL VACCINE (1 of 1 - PPSV23)] Future Scheduled Test INFLUENZA VACCINE [code [facility] = INFLUENZA VACCINE] Encounters Start End Encounter Admission Attending Care Care Encounter Source Date/Time Date/Time Type Type Clinicians Facility Department ID 2020-11-17 2020-11-17 Outpatient Alis KASSI [facility] [id number] Univers 09:30:00 09:30:00 PETER [id number] [facility] 2020-11-17 2020-11-17 Outpatient Alis KASSI [facility] [id number] Univers 09:30:00 09:30:00 PETER [facility] 2020-10-20 2020-10-20 Outpatient Alis SOLITARIO [facility] [id number] Univers 09:30:00 09:30:00 PETER [id number] [facility] 2020-10-20 2020-10-20 Outpatient R KASSI [facility] [id number] Univers 09:30:00 09:30:00 PETER [facility] 2020-04-13 2020-04-13 Outpatient LALO JESUS [facility] [id number] Univers 10:40:00 10:40:00 LALO JESUS [id number] [facility] 2020-04-11 2020-04-11 Telephone MAGDI [id number] 00:00:00 00:00:00 Patient JAVY [id number] Does [facility] [id number] Have A [id number] [facility] 2020-04-11 2020-04-11 Telephone MAGDI [id number] Univers 00:00:00 00:00:00 Patient JAVY [id number] it y of Does [facility] [id number] A [id number] [address] 2020-04-10 2020-04-10 Telephone ShonnaMAGDI [id number] 00:00:00 00:00:00 Eva PALAFOX [id number] [facility] [id number] [facility] 2020-04-10 2020-04-10 Telephone MAGDI Kilpatrick [id number] Univers 00:00:00 00:00:00 Eva PALAFOX [id number] i ty of [facility] [id number] Ar as [id number] [address] 2020-04-07 2020-04-07 Laboratory Lab, [facility] [id number] 07:48:20 08:08:20 Only Fam Pob I Health [id number] [place] [id number] Professio [id number] [place] [address] [facility] 2020-04-07 2020-04-07 Laboratory Lab, [facility] Fam Pob I [facility] [id number] [facility] 07:48:20 08:08:20 Only Yoli Bermudez [facility] [id number] [facility] [id number] Ar as Professio [id number] Il dical [address] [facility] 2020-04-07 2020-04-07 Outpatient R WILLIE [facility] [id number] Univers 08:00:00 08:00:00 YOLI ity [facility] Results This patient has no known results.
[2021-11-21] MEDS ORDERED: ACETAMINOPHEN 325 MG TABLET ONE (18:29)
[2021-11-21] MEDS ORDERED: IBUPROFEN 200 MG TAB PO ONE (18:29)
--- NOTE | 2021-11-21 19:43 | RAD REPORT ---
EXAM DESCRIPTION: RAD - Foot Right 3 View - 11/21/2021 7:30 pm CLINICAL HISTORY: Right foot pain FINDINGS: The bones are osteoporotic. Hallux valgus deformity present. Old fractures involve the third, fourth and fifth metatarsals. Nonunion of the fracture fragments of the third metatarsal Erosive changes involve the second through fifth metatarsal heads. No acute fracture or dislocation seen
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
[2021-11-21 21:12] VITALS: BP 158/87; TEMP 97.8; O2SAT 100
== END 2021-11-21 20:38 | disposition home or self-care (01) ==
LOC: ER 17:46
DX: S90.31XA Contusion of right foot, initial encounter (principal); W22.8XXA Striking against or struck by other objects, initial encounter; Y92.009 Unspecified place in unspecified non-institutional (private) residence as the place of occurrence of the external cause; F03.90 Unspecified dementia, unspecified severity, without behavioral disturbance, psychotic disturbance, mood disturbance, and anxiety; Z88.8 Allergy status to other drugs, medicaments and biological substances
CPT/HCPCS: 99284